=== PATIENT | female | born 1955 | race Caucasian/White ===

== ENCOUNTER 2020-04-30 15:47 | Inpatient (IN) | payer MEDICARE, OTHER ==
[2020-04-30] MEDS ORDERED: SODIUM CHLORIDE 0.9% 500 ML 500 ML IV STA (16:31)
[2020-04-30 16:45] LABS: Anisocytosis Slight; Basophils # (A) 0.1 k/uL (0-0.2); Basophils % (A) 1 %; Eosinophils # (A) 0.1 k/uL (0-0.7); Eosinophils % (A) 1 %; HCT 29.9 % (34.0-46.0); HGB 9.4 gm/dL (11.4-16.0); Hypochromasia Marked; Lymphocytes # (A) 2.1 k/uL (1.0-4.8); Lymphocytes % (A) 27 %; MCH 26.3 pg (25.0-35.0); MCHC 31.4 g/dL (31.0-37.0); MCV 83.8 fL (80.0-100.0); Mean Platelet Volume 7.3; Monocytes # (A) 0.7 k/uL (0-1.0); Monocytes % (A) 9 %; Neutrophils # (A) 4.6 k/uL (1.3-7.7); Neutrophils % (A) 59 %; Platelet Count 499 k/uL (150-450); Poikilocytosis Moderate; RBC 3.57 m/uL (3.80-5.40); RDW 17.6 % (11.5-15.5); WBC 7.7 k/uL (3.8-10.6)
[2020-04-30 16:57] LABS: Albumin 3.2 g/dL (3.5-5.0); Calcium 8.7 mg/dL (8.4-10.2); Magnesium 2.1 mg/dL (1.6-2.3); Potassium 3.8 mmol/L (3.5-5.1); Total Bilirubin 0.4 mg/dL (0.2-1.3)
[2020-04-30 16:59] LABS: INR 0.9 (<1.2); Partial Thromboplastin Time 23.4 sec (22.0-30.0); Prothrombin Time 9.7 sec (9.0-12.0)
[2020-04-30 17:03] LABS: D-Dimer 2.47 mg/L FEU (<0.60)
--- NOTE | 2020-04-30 17:13 | ED ---
General Adult HPI - General Chief complaint: Shortness of Breath Stated complaint: SOB Time Seen by Provider: 04/30/20 15:50 Source: patient, EMS, RN notes reviewed, old records reviewed Mode of arrival: EMS Limitations: no limitations - History of Present Illness Initial comments: This is a 64-year-old female who presents emergency Department complaining shortness of breath. Patient states her nurse saw her today and thought she had some crackles in her oxygenation was in the 80s so they sent her in. Patient states in February she was diagnosed with cold and pneumonia as well patient states she went home on April 02 has been feeling pretty good up until Wednesday. Patient states ever since Wednesday she started having more difficulty breathing and a cough. Patient denies any sputum production. Patient denies a fever. Patient denies any chest pain or palpitations. Patient denies abdominal pain patient denies nausea vomiting diarrhea. Patient denies any calf tenderness. Patient states his swelling in her legs is actually improved from before - Related Data Home Medications Medication Instructions Recorded Confirmed Aclidinium [place] [Tudorza 400 mcg IH DAILY 01/08/15 01/08/15 Pressair] Albuterol Inhaler (Mhu) [Ventolin 1 - 2 puff INHALATION Q6HR PRN 01/08/15 01/08/15 Inhaler] Folic Acid 0.8 mg PO DAILY 01/08/15 01/08/15 Hydrocodone/Acetaminophen [[place] 1 each PO Q6H PRN 01/08/15 01/08/15 10-325] Ibuprofen [Motrin] 800 mg PO Q8HR PRN 01/08/15 01/08/15 Leflunomide [Arava] 20 mg PO DAILY 01/08/15 01/08/15 Metoprolol Succinate (ER) [Toprol 25 mg PO DAILY 01/08/15 01/08/15 Xl] Tofacitinib Citrate [Xeljanz] 5 mg PO DAILY 01/08/15 01/08/15 Allergies Allergy/AdvReac Type Severity Reaction Status Date / Time Penicillins Allergy Unknown Verified 04/30/20 16:01 Childhood morphine AdvReac Nausea & Verified 04/30/20 16:01 Vomiting nickel AdvReac Swelling Verified 04/30/20 16:01 Review of Systems ROS Statement: Those systems with pertinent positive or pertinent negative responses have been documented in the HPI. ROS Other: All systems not noted in ROS Statement are negative. Past Medical History Past Medical History: COPD, Fibromyalgia, Hypertension, Osteoarthritis (OA) History of Any Multi-Drug Resistant Organisms: None Reported Past Surgical History: Hysterectomy, Joint Replacement Additional Past Surgical History / Comment(s): eye removed tumor removed from neck Past Psychological History: No Psychological Hx Reported Smoking Status: Former smoker Past Alcohol Use History: None Reported Past Drug Use History: Marijuana General Exam - General Exam Comments Initial Comments: GENERAL: Patient is well-developed and well-nourished. Patient is nontoxic and well- hydrated and is in mild distress. ENT: Neck is soft and supple. No significant lymphadenopathy is noted. Oropharynx is clear. Moist mucous membranes. Neck has full range of motion without eliciting any pain. EYES: The sclera were anicteric and conjunctiva were pink and moist. Extraocular movements were intact and pupils were equal round and reactive to light. Eyelids were unremarkable. PULMONARY: Patient is crackles bilateral bases CARDIOVASCULAR: Patient is tachycardic at about 100 beats a minute ABDOMEN: Soft and nontender with normal bowel sounds. No palpable organomegaly was noted. There is no palpable pulsatile mass. SKIN: Skin is clear with no lesions or rashes and otherwise unremarkable. NEUROLOGIC: Patient is alert and oriented x3. Cranial nerves II through XII are grossly intact. Motor and sensory are also intact. Normal speech, volume and content. Symmetrical smile. MUSCULOSKELETAL: Normal extremities with adequate strength and full range of motion. No lower extremity swelling or edema. No calf tenderness. LYMPHATICS: No significant lymphadenopathy is noted PSYCHIATRIC: Normal psychiatric evaluation. Limitations: no limitations Course Vital Signs 04/30/20 15:48 Temperature 98.5 F Pulse Rate 107 H Respiratory 20 Rate Blood Pressure 115/58 O2 Sat by Pulse 89 L Oximetry Medical Decision Making - Medical Decision Making EKG shows sinus tachycardia at 102 bpm MA interval 140 QRS 72 QT interval 3:30 QTC is 440. Patient's EKG shows no ST segment elevation or depression. Chest x-ray shows chronic interstitial disease. Patient had a PE study done CAT scan showed no pulmonary embolism. Patient will be admitted I spoke with Dr. Glover he is in agreement with this I wrote admitting orders I consult cardiology I started the patient on heparin and I will continue the heparin and aspirin Nitropaste on the floor. - Lab Data Result diagrams: 04/30/20 16:36 04/30/20 16:36 Lab Results 04/30/20 04/30/20 04/30/20 Range/Units 16:36 16:36 16:36 WBC 7.7 (3.8-10.6) k/uL RBC 3.57 L (3.80-5.40) m/uL Hgb 9.4 L (11.4-16.0) gm/dL Hct 29.9 L (34.0-46.0) % MCV 83.8 (80.0-100.0) fL MCH 26.3 (25.0-35.0) pg MCHC 31.4 (31.0-37.0) g/dL RDW 17.6 H (11.5-15.5) % Plt Count 499 H (150-450) k/uL MPV 7.3 Neutrophils % 59 % Lymphocytes % 27 % Monocytes % 9 % Eosinophils % 1 % Basophils % 1 % Neutrophils # 4.6 (1.3-7.7) k/uL Lymphocytes # 2.1 (1.0-4.8) k/uL Monocytes # 0.7 (0-1.0) k/uL Eosinophils # 0.1 (0-0.7) k/uL Basophils # 0.1 (0-0.2) k/uL Hypochromasia Marked Poikilocytosis Moderate Anisocytosis Slight PT 9.7 (9.0-12.0) sec INR 0.9 (<1.2) APTT 23.4 (22.0-30.0) sec D-Dimer 2.47 H (<0.60) mg/L FEU Sodium 139 (137-145) mmol/L Potassium 3.8 (3.5-5.1) mmol/L Chloride 99 (98-107) mmol/L Carbon Dioxide 34 H (22-30) mmol/L Anion Gap 6 mmol/L BUN 12 (7-17) mg/dL Creatinine 0.81 (0.52-1.04) mg/dL Est GFR (CKD-EPI)AfAm 88 (>60 ml/min/1.73 sqM) Est GFR (CKD-EPI)NonAf 76 (>60 ml/min/1.73 sqM) Glucose 107 H (74-99) mg/dL Plasma Lactic Acid Goran (0.7-2.0) mmol/L Calcium 8.7 (8.4-10.2) mg/dL Magnesium 2.1 (1.6-2.3) mg/dL Total Bilirubin 0.4 (0.2-1.3) mg/dL AST 25 (14-36) U/L ALT 11 (4-34) U/L Alkaline Phosphatase 80 (38-126) U/L Troponin I (0.000-0.034) ng/mL NT-Pro-B Natriuret Pep pg/mL Total Protein 7.0 (6.3-8.2) g/dL Albumin 3.2 L (3.5-5.0) g/dL 04/30/20 04/30/20 04/30/20 Range/Units 16:36 16:36 16:36 WBC (3.8-10.6) k/uL RBC (3.80-5.40) m/uL Hgb (11.4-16.0) gm/dL Hct (34.0-46.0) % MCV (80.0-100.0) fL MCH (25.0-35.0) pg MCHC (31.0-37.0) g/dL RDW (11.5-15.5) % Plt Count (150-450) k/uL MPV Neutrophils % % Lymphocytes % % Monocytes % % Eosinophils % % Basophils % % Neutrophils # (1.3-7.7) k/uL Lymphocytes # (1.0-4.8) k/uL Monocytes # (0-1.0) k/uL Eosinophils # (0-0.7) k/uL Basophils # (0-0.2) k/uL Hypochromasia Poikilocytosis Anisocytosis PT (9.0-12.0) sec INR (<1.2) APTT (22.0-30.0) sec D-Dimer (<0.60) mg/L FEU Sodium (137-145) mmol/L Potassium (3.5-5.1) mmol/L Chloride (98-107) mmol/L Carbon Dioxide (22-30) mmol/L Anion Gap mmol/L BUN (7-17) mg/dL Creatinine (0.52-1.04) mg/dL Est GFR (CKD-EPI)AfAm (>60 ml/min/1.73 sqM) Est GFR (CKD-EPI)NonAf (>60 ml/min/1.73 sqM) Glucose (74-99) mg/dL Plasma Lactic Acid Goran 1.8 (0.7-2.0) mmol/L Calcium (8.4-10.2) mg/dL Magnesium (1.6-2.3) mg/dL Total Bilirubin (0.2-1.3) mg/dL AST (14-36) U/L ALT (4-34) U/L Alkaline Phosphatase (38-126) U/L Troponin I 0.507 H* (0.000-0.034) ng/mL NT-Pro-B Natriuret Pep 398 pg/mL Total Protein (6.3-8.2) g/dL Albumin (3.5-5.0) g/dL Critical Care Time Critical Care Time: Yes Total Critical Care Time: 35 Disposition Clinical Impression: Non-STEMI (non-ST elevated myocardial infarction) Disposition: ADMITTED IP TO THIS HOSP Referrals: Beny Glover MD [Primary Care Provider] - 1-2 days Time of Disposition: 18:56
--- NOTE | 2020-04-30 17:15 | XR ---
EXAMINATION TYPE: XR chest 2V DATE OF EXAM: 04/30/2020 COMPARISON: 05/03/2013. HISTORY: Shortness of breath. History of Covid in February. TECHNIQUE: Frontal and lateral views of the chest are obtained. FINDINGS: There are bilateral diffuse marked hazy and streaky opacities. There is background of pulm onary edema. No pleural effusion, or pneumothorax seen. The cardiac silhouette size is enlarged. T he osseous structures are intact. IMPRESSION: Pulmonary edema with superimposed infiltrates not excluded.
[2020-04-30] MEDS ORDERED: HEPARIN SODIUM,PORCINE 5,000 UNIT/ML 1 ML VIAL IV ONE (17:17)
[2020-04-30] MEDS ORDERED: HEPARIN SOD,PORK IN 0.45% NACL 25,000 UNIT in 0.45% NACL 1 250ML.BAG IV SCH (17:30)
--- NOTE | 2020-04-30 18:35 | CT ---
EXAMINATION TYPE: CT chest angio for PE DATE OF EXAM: 04/30/2020 COMPARISON: CT 05/01/2013. Same-day radiograph. HISTORY: shortness of breath CT DLP: 511.3 mGycm Automated exposure control for dose reduction was used. CONTRAST: CT Chest for pulmonary embolism performed with with IV Contrast, patient injected with 100 mL of Isov ue 370. FINDINGS: LUNGS: There is background of chronic moderate interstitial disease. There is superimposed bilateral diffuse moderate opacities. There is no pleural effusion or pneumothorax seen. There is moderate br onchiectasis. MEDIASTINUM: There is satisfactory enhancement of the pulmonary artery and its branches, there is no CT evidence for pulmonary embolism. There is mild to moderate thoracic aorta and moderate coronary at herosclerotic disease. Ascending aortic ectasia measuring up to 4 cm. Mild cardiomegaly seen. There a re no greater than 1 cm hilar or mediastinal lymph nodes. No pericardial effusion is seen. OTHER: Moderate hiatal hernia. IMPRESSION: Chronic interstitial disease/fibrosis with probable superimposed acute component. Moderate hiatal hernia. Ascending aortic ectasia. No acute PE.
[2020-04-30] MEDS ORDERED: NITROGLYCERIN SL TABS 0.4 MG TAB SUBLINGUAL PRN (18:56)
[2020-04-30] MEDS ORDERED: ASPIRIN 81 MG PO STA (18:56)
[2020-04-30] MEDS: FUROSEMIDE 10 MG/ML 2 ML VIAL IV SCH (22:54)
[2020-04-30] MEDS: NITROGLYCERIN OINT 1 INCH/GM PACKET TOPICAL SCH (22:54)
[2020-04-30] MEDS ORDERED: ALBUTEROL HFA INHALER INHALATION PRN (23:05)
[2020-04-30] MEDS ORDERED: ACETAMINOPHEN TAB 500 MG TAB PO PRN (23:07)
[2020-04-30] MEDS: ALPRAZolam 0.25 MG TAB PO PRN (23:16)
[2020-05-01] MEDS: PANTOPRAZOLE 40 MG TABLET PO SCH (06:31)
[2020-05-01] MEDS: NITROGLYCERIN OINT 1 INCH/GM PACKET TOPICAL SCH ×3 (06:31→17:08)
[2020-05-01] MEDS: LEVOTHYROXINE 25 MCG TAB PO SCH (06:31)
[2020-05-01] MEDS ORDERED: ASPIRIN 325 MG TAB PO STA (08:31)
[2020-05-01] MEDS ORDERED: SODIUM CHLORIDE 0.9% 1,000 ML in EMPTY BAG 1 BAG IV ONE (08:31)
[2020-05-01] MEDS ORDERED: NITROGLYCERIN SL TABS 0.4 MG TAB SUBLINGUAL PRN (08:31)
[2020-05-01] MEDS ORDERED: ALPRAZolam 0.5 MG TAB PO PRN (08:31)
[2020-05-01] MEDS ORDERED: ALPRAZolam 0.25 MG TAB PO PRN (08:31)
[2020-05-01] MEDS ORDERED: ATORVASTATIN 80 MG TAB PO STA (08:31)
[2020-05-01] MEDS: ALBUTEROL NEBULIZED 2.5 MG/3 ML INHALATION PRN ×2 (08:35→18:11)
[2020-05-01] MEDS ORDERED: NON FORMULARY DRUG (Folic Acid [Folic Acid] 0.8 MG Capsule) PO SCH (09:00)
[2020-05-01] MEDS: FUROSEMIDE 10 MG/ML 2 ML VIAL IV SCH ×2 (09:06→17:07)
[2020-05-01] MEDS: CYANOCOBALAMIN 500 MCG TAB PO SCH (09:08)
[2020-05-01] MEDS: MAGNESIUM OXIDE 400 MG TAB PO SCH (09:08)
[2020-05-01] MEDS: CHOLECALCIFEROL 25 MCG (1000 IU) TABLET PO SCH (09:08)
[2020-05-01] MEDS: ASPIRIN 325 MG TAB PO SCH (09:09)
--- NOTE | 2020-05-01 09:28 | P.HPIM ---
History of Present Illness H&P Date: 05/01/20 Shelbie Minaya, is a 64-year-old female who presented to [facility] emergency room with a chief complaint of worsening shortness of breath, patient had a recent history of Covid 19 pneumonia, she was admitted to [facility] for about 4 weeks she was discharged on 04/02/2020. She was evaluated in the emergency room, her vital examination on presentation revealed a temperature of 98.5 pulse 107 respiration 20 blood pressure 115/58 pulse ox 89% on 4 L nasal cannula, her white blood count was 7.7 hemoglobin 9.4 platelet count 499, d-dimer was elevated at 2.47 troponin level was elevated at 0.5 , BNP was 398 , Coronavirus PCR was negative. EKG was done in the emergency room and revealed sinus tachycardia with premature supraventricular complexes otherwise normal EKG, chest x-ray was done in the emergency room and revealed pulmonary edema with superimposed infiltrates, CT angiogram of the chest revealed evidence of chronic interstitial disease, moderate hiatal hernia, no acute pulmonary embolism. Patient was started on IV heparin and was admitted to telemetry floor cardiology consultation and pulmonary consultation were requested. Past medical history is significant for history of hypertension, history of osteoarthritis, history of fibromyalgia, history of hyperlipidemia, history of COPD, and recent history of Covid 19 pneumonia. On review of systems patient is alert and oriented 3 in no apparent distress, she is complaining of shortness of breath and occasional cough there is no fever or chills no headache or dizziness no chest pain, no nausea or vomiting no abdominal pain no diarrhea no blood in the stools no burning with urination no frequency or urgency and no hematuria. Past Medical History Past Medical History: COPD, CVA/TIA, Fibromyalgia, Hypertension, Osteoarthritis (OA), Rheumatoid Arthritis (RA) History of Any Multi-Drug Resistant Organisms: None Reported Past Surgical History: Hysterectomy, Joint Replacement Additional Past Surgical History / Comment(s): right eye removed tumor removed from neck Smoking Status: Former smoker - Past Family History Mother Additional Family Medical History / Comment(s): from pancreatic cancer Medications and Allergies Home Medications Medication Instructions Recorded Confirmed Type Folic Acid 0.8 mg PO DAILY 01/08/15 04/30/20 History ALPRAZolam [Xanax] 0.25 mg PO HS PRN 04/30/20 04/30/20 History Albuterol Inhaler [Ventolin Hfa 2 puff INHALATION RT-QID PRN 04/30/20 04/30/20 History Inhaler] Aspirin EC [Ecotrin Low Dose] 81 mg PO DAILY 04/30/20 04/30/20 History Cholecalciferol [Vitamin D3 (25 25 mcg PO DAILY 04/30/20 04/30/20 History Mcg = 1000 Iu)] Cyanocobalamin (Vitamin B-12) 1,000 mcg PO DAILY 04/30/20 04/30/20 History [Vitamin B-12] Furosemide [Lasix] 40 mg PO BID 04/30/20 04/30/20 History Latanoprost [Xalatan 0.005%] 1 drop LEFT EYE HS 04/30/20 04/30/20 History Levothyroxine Sodium [Euthyrox] 25 mcg PO DAILY 04/30/20 04/30/20 History Magnesium Oxide 400 mg PO DAILY 04/30/20 04/30/20 History Naproxen Sodium [Aleve] 440 mg PO Q12HR PRN 04/30/20 04/30/20 History Omeprazole [PriLOSEC] 20 mg PO AC-BRKFST 04/30/20 04/30/20 History Allergies Allergy/AdvReac Type Severity Reaction Status Date / Time Penicillins Allergy Unknown Verified 04/30/20 20:04 Childhood morphine AdvReac Nausea & Verified 04/30/20 20:04 Vomiting nickel AdvReac Swelling Verified 04/30/20 20:04 Physical Exam Vitals: Vital Signs Temp Pulse Pulse Resp BP BP BP 05/01/20 08:45 90 05/01/20 08:35 88 05/01/20 08:30 105 H 106/58 05/01/20 07:54 98.4 F 106 H 20 105/59 05/01/20 04:59 05/01/20 04:00 98.1 F 100 20 101/56 05/01/20 02:00 103 H 20 05/01/20 01:28 05/01/20 00:00 103 H 20 114/70 04/30/20 23:00 97.2 F L 98 22 118/75 04/30/20 21:50 98 26 H 04/30/20 21:07 97 17 121/82 04/30/20 19:00 100 19 124/73 04/30/20 15:48 98.5 F 107 H 20 115/58 Pulse Ox 05/01/20 08:45 05/01/20 08:35 05/01/20 08:30 05/01/20 07:54 93 L 05/01/20 04:59 66 L 05/01/20 04:00 88 L 05/01/20 02:00 05/01/20 01:28 95 05/01/20 00:00 93 L 04/30/20 23:00 92 L 04/30/20 21:50 04/30/20 21:07 95 04/30/20 19:00 90 L 04/30/20 15:48 89 L Intake and Output 04/30/20 05/01/20 05/01/20 22:59 06:59 14:59 Intake Total 63.314 Output Total 200 1200 Balance -200 -1136.686 Intake: Intake, IV Titration 63.314 Amount Heparin Sod,Pork in 0.45% 63.314 NaCl 25,000 unit In 0.45 % NaCl 1 250ml.bag @ 9.5 UNITS/KG/HR 9.997 mls/hr IV .Q24H [facility] Rx#: [id number] Output: Urine 200 1200 Other: Voiding Method Indwelling Catheter Indwelling Catheter Indwelling Catheter # Voids 1 Weight 105.233 kg 104.9 kg In general patient is alert and oriented 3 in no apparent distress HEENT head normocephalic and atraumatic Neck is supple no JVD no goiter no lymphadenopathy Chest exam reveals a few scattered rhonchi no wheezing Cardiac exam reveals regular heart sounds S1 and S2 no gallops no murmurs Abdomen is soft nontender no organomegaly with normal bowel sounds Extremity examination reveals no edema no cyanosis or clubbing Neurological examination reveals no gross focal deficit Results CBC & Chem 7: 04/30/20 16:36 04/30/20 16:36 Labs: Abnormal Lab Results - Last 24 Hours (Table) 04/30/20 04/30/20 04/30/20 Range/Units 16:36 16:36 16:36 RBC 3.57 L (3.80-5.40) m/uL Hgb 9.4 L (11.4-16.0) gm/dL Hct 29.9 L (34.0-46.0) % RDW 17.6 H (11.5-15.5) % Plt Count 499 H (150-450) k/uL APTT (22.0-30.0) sec D-Dimer 2.47 H (<0.60) mg/L FEU Carbon Dioxide 34 H (22-30) mmol/L Glucose 107 H (74-99) mg/dL Troponin I (0.000-0.034) ng/mL Albumin 3.2 L (3.5-5.0) g/dL 04/30/20 04/30/20 04/30/20 Range/Units 16:36 19:53 22:56 RBC (3.80-5.40) m/uL Hgb (11.4-16.0) gm/dL Hct (34.0-46.0) % RDW (11.5-15.5) % Plt Count (150-450) k/uL APTT (22.0-30.0) sec D-Dimer (<0.60) mg/L FEU Carbon Dioxide (22-30) mmol/L Glucose (74-99) mg/dL Troponin I 0.507 H* 0.475 H* 0.466 H* (0.000-0.034) ng/mL Albumin (3.5-5.0) g/dL 04/30/20 Range/Units 22:56 RBC (3.80-5.40) m/uL Hgb (11.4-16.0) gm/dL Hct (34.0-46.0) % RDW (11.5-15.5) % Plt Count (150-450) k/uL APTT 33.0 H (22.0-30.0) sec D-Dimer (<0.60) mg/L FEU Carbon Dioxide (22-30) mmol/L Glucose (74-99) mg/dL Troponin I (0.000-0.034) ng/mL Albumin (3.5-5.0) g/dL Thrombosis Risk Factor Assmnt - Choose All That Apply Any of the Below Risk Factors Present?: Yes Each Factor Represents 1 point: Abnormal pulmonary function (COPD), Obesity (BMI >25) Other Risk Factors: Yes Each Risk Factor Represents 2 Points: Age 61-74 years Other congenital or acquired thrombophilia - If yes, enter type in comment: No Thrombosis Risk Factor Assessment Total Risk Factor Score: 4 Thrombosis Risk Factor Assessment Level: Moderate Risk Assessment and Plan Plan: 1. Worsening shortness of breath, with chest x-ray and computed tomography scan of the chest chronic interstitial disease with probable superimposed infiltrates 2. Elevated d-dimer no evidence of pulmonary embolism on computed tomography scan, will check bilateral lower extremity Doppler to rule out DVT 3. Elevated troponin level possible non-ST elevation myocardial infarction patient is maintained on IV heparin cardiology consultation requested 4. Recent Covid 19 pneumonia 5. Underlying history of hypertension 6. Underlying history of COPD 7. Underlying history of hyperlipidemia 8. Underlying history of osteoarthritis and fibromyalgia At this time patient is admitted to telemetry floor. She was started on IV heparin She was started on albuterol updraft, she is maintained on oxygen supplements Cardiology consultation and pulmonary consultation request Will check lower extremity Doppler rule out DVT Recheck labs in a.m. Will follow crackles
[2020-05-01] MEDS ORDERED: LIDOCAINE 1% INJ 10MG/ML (20 ML MDV) ONE (09:46)
[2020-05-01] MEDS ORDERED: fentaNYL (PF) 50 MCG/ML 2 ML AMP ONE (10:22)
[2020-05-01] MEDS ORDERED: fentaNYL (PF) 50 MCG/ML 2 ML AMP IV ONE (10:31)
[2020-05-01] MEDS ORDERED: LIDOCAINE 1% INJ 10MG/ML (20 ML MDV) SQ ONE ×2 (10:32→10:33)
[2020-05-01] MEDS ORDERED: IV FLUID CONTINUATION 1,000 ML IV ONE (10:33)
[2020-05-01] MEDS ORDERED: MIDAZOLAM 2 MG/2 ML VIAL IV ONE (10:41)
--- NOTE | 2020-05-01 10:41 | ECHOF ---
Referral Reason:Elevated troponin MEASUREMENTS -------- HEIGHT: 165.1 cm WEIGHT: 104.8 kg BP: 101/56 RVIDd: 2.7 cm (< 3.3) IVSd: 1.2 cm (0.6 - 1.1) LVIDd: 3.7 cm (3.9 - 5.3) LVPWd: 1.2 cm (0.6 - 1.1) IVSs: 1.7 cm LVIDs: 1.9 cm LVPWs: 2.1 cm Ao Diam: 3.3 cm (2.0 - 3.7) AV Cusp: 1.5 cm (1.5 - 2.6) LA Diam: 3.2 cm (2.7 - 3.8) MV EXCURSION: 14.924 mm (> 18.000) MV EF SLOPE: 41 mm/s (70 - 150) EPSS: 0.7 cm MV E Avtar: 0.99 m/s MV DecT: 260 ms MV A Avtar: 1.18 m/s MV E/A Ratio: 0.84 RAP: 5.00 mmHg RVSP: 35.51 mmHg FINDINGS -------- Sinus rhythm. This was a technically difficult study with suboptimal views. The left ventricular size is normal. There is mild concentric left ventricular hypertrophy. Overa ll left ventricular systolic function is normal with, an EF between 55 - 60 %. The right ventricle is normal in size. The left atrial size is normal. The right atrial size is normal. Lumason used Aortic valve is trileaflet and is mildly thickened. The mitral valve leaflets are mildly thickened. Mild mitral regurgitation is present. The tricuspid valve appears structurally normal. Mild tricuspid regurgitation present. There is m ild pulmonary hypertension. The right ventricular systolic pressure, as measured by Doppler, is 35. 51mmHg. There is no pulmonic regurgitation present. The aortic root size is normal. IVC Not well visulized. There is no pericardial effusion. CONCLUSIONS -------- 1. There is mild concentric left ventricular hypertrophy. 2. Overall left ventricular systolic function is normal with, an EF between 55 - 60 %. 3. The left atrial size is normal. 4. Aortic valve is trileaflet and is mildly thickened. 5. The mitral valve leaflets are mildly thickened. 6. Mild mitral regurgitation is present. 7. Mild tricuspid regurgitation present. 8. There is mild pulmonary hypertension. 9. There is no pericardial effusion. [employer] TEACHER: Samantha Weaver RDCS
[2020-05-01] MEDS ORDERED: IOPAMIDOL-370 125ML BTL INJ ONE (10:46)
--- NOTE | 2020-05-01 10:50 | CONS ---
CONSULTATION CHIEF COMPLAINT: Shortness of breath and elevated troponin. Shelbie is a 64-year-old lady with history of COPD, hypothyroidism who was admitted to the hospital with progressively worsening shortness of breath. She states that over the last several days she has been becoming short of breath with activity and also had some chest tightness. Admitting EKG reveals sinus tachycardia without significant ST-T wave changes. Her first set of troponin was elevated at 0.5, the subsequent 2 sets were at 0.4 and 0.4. Coronavirus was negative. The patient had an elevated D-dimer, went on to have a CT scan of the chest that was negative for pulmonary embolism. She had aortic ectasia and also had moderate hiatal hernia. The patient suffered from coronavirus infection with pneumonia in October and in February and was in the hospital for several weeks. Since that time, she has been on home O2. She was a smoker, but quit smoking recently. PAST MEDICAL HISTORY: Negative for hypertension, diabetes, dyslipidemia. Significant for COPD and recent infection of the coronavirus. MEDICATIONS: Medications at home include magnesium, vitamin D, aspirin, Prilosec, Xalatan, vitamin B12, Synthroid, Lasix, Ventolin, Xanax and folic acid. ALLERGIES: The patient is allergic to PENICILLIN, MORPHINE and NICKEL. FAMILY HISTORY: Negative for premature coronary artery disease. SOCIAL HISTORY: Significant for smoking that she quit recently. REVIEW OF SYSTEMS: HEENT is unremarkable . CARDIAC: As described above. RESPIRATORY: As described above. GI: Negative. GENITOURINARY: Negative. ALLERGY/IMMUNOLOGY: Negative. SKIN: Negative. MUSCULOSKELETAL: Significant for arthritis. PSYCHOSOCIAL: Negative. ENDOCRINE: Negative. DERM: Negative. CONSTITUTIONAL: Negative. ONCOLOGICAL: Negative. DENTAL INSURANCE BILLER: Negative. Rest of the system review is not relevant. PHYSICAL EXAMINATION: On exam, patient is comfortable at rest. Afebrile. Heart rate is 100 beats per minute. Blood pressure is 105/59. Respiratory rate is 18. There is no jugular venous distention. Carotid upstroke is normal. There is no bruit. Chest exam reveals diminished air entry at the bases. I do not hear any crackles or rhonchi. Heart exam reveals first and second heart sounds. No gallop. No murmur. No rub. Abdomen is soft, nontender. Examination of extremities did not reveal any edema. Peripheral pulses are felt. EKG shows sinus tachycardia with nonspecific ST-T wave changes. Troponins are elevated as described above. Creatinine is normal at 0.8. Potassium is 3.8. Hemoglobin is low at 9.4, platelet count is 499. ASSESSMENT: 1. Acute non ST-segment elevation myocardial infarction. 2. Shortness of breath, probably multifactorial in origin including [id number] elevation myocardial infarction, recent COVID infection and chronic obstructive pulmonary disease. PLAN: I advised the patient to undergo cardiac catheterization for further evaluation of her symptoms and decide on further course of action based on the cardiac catheterization findings. MMODL / IJN: [id number] /
--- NOTE | 2020-05-01 13:24 | P.CNPUL ---
History of Present Illness Consult date: 05/01/20 Requesting physician: Beny Glover Reason for consult: dyspnea, abnormal CXR/CT Chief complaint: Shortness of breath History of present illness: This a very pleasant 64-year-old female patient who follows with Dr. Waddell is her primary care provider. 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 She had recently been admitted to [facility] for CoVID 19 pneumonia. She was discharged on 04/02/2020 and had been doing quite well. She also has a history of rheumatoid arthritis and follows with Dr. Koenig in [place]. She had been recently started on Rinvoq. She had been on multiple previous rheumatoid medications in the past. She presented here to the emergency room yesterday with a 2-3 day history of increasing shortness of breath, cough and congestion. A visiting nurse heard crackles and her oxygenation was in the 80s so she was sent in for the same. CT angiogram revealed chronic interstitial disease/fibrosis with probable superimposed moderate opacities. Moderate bronchiectasis. No evidence of pulmonary emboli. Moderate hiatal hernia. Echocardiogram revealed preserved left ventricular systolic function with ejection fraction 55-60%. No significant valvular heart disease. White count 7.7. Hemoglobin 9.4. D-dimer 2.47. Sodium 139. Potassium 3.8. Creatinine 0.81. Actiq acid 1.8. Villela virus not detected. Troponin 0.5, 0.4, 0.4. She did undergo cardiac catheterization this morning that did not reveal any significant blockage according to the patient. Report is pending. She is seen today in consultation on the selective care unit. She is currently resting flat in bed. Awake and alert in no acute distress. Still with some dyspnea with minimal exertion. She is maintaining O2 saturation in the mid 90s on 5 L/m per nasal cannula. She's afebrile. She had been initiated on a heparin drip originally. IV diuretics at 20 mg Lasix every 8 hours. Review of Systems REVIEW OF SYSTEMS: CONSTITUTIONAL: Denies any recent significant weight loss or weight gain. EYES: Denies change in vision. EARS, NOSE, MOUTH, THROAT: Denies headaches, denies sore throat. CARDIOVASCULAR: Denies chest pain, palpitations or syncopal episodes. RESPIRATORY: Positive for shortness of breath, cough, congestion hemoptysis. GASTROINTESTINAL: Denies change in appetite, denies abdominal pain GENITOURINARY: Denies hematuria, denies infections. MUSKULOSKELETAL: Denies pain, denies swelling. INTEGUMENTARY: Denies rash, denies eczema. NEUROLOGICAL: Denies recent memory loss, no recent seizure activity. PSYCHIATRIC: Denies anxiety, denies depression. HEMATOLOGIC/LYMPHATIC: Denies anemia, denies enlarged lymph nodes. Past Medical History Past Medical History: COPD, CVA/TIA, Fibromyalgia, Hypertension, Osteoarthritis (OA), Rheumatoid Arthritis (RA) History of Any Multi-Drug Resistant Organisms: None Reported Past Surgical History: Hysterectomy, Joint Replacement Additional Past Surgical History / Comment(s): right eye removed tumor removed from neck Smoking Status: Former smoker - Past Family History Mother Additional Family Medical History / Comment(s): from pancreatic cancer Medications and Allergies Home Medications Medication Instructions Recorded Confirmed Type Folic Acid 0.8 mg PO DAILY 01/08/15 04/30/20 History ALPRAZolam [Xanax] 0.25 mg PO HS PRN 04/30/20 04/30/20 History Albuterol Inhaler [Ventolin Hfa 2 puff INHALATION RT-QID PRN 04/30/20 04/30/20 History Inhaler] Aspirin EC [Ecotrin Low Dose] 81 mg PO DAILY 04/30/20 04/30/20 History Cholecalciferol [Vitamin D3 (25 25 mcg PO DAILY 04/30/20 04/30/20 History Mcg = 1000 Iu)] Cyanocobalamin (Vitamin B-12) 1,000 mcg PO DAILY 04/30/20 04/30/20 History [Vitamin B-12] Furosemide [Lasix] 40 mg PO BID 04/30/20 04/30/20 History Latanoprost [Xalatan 0.005%] 1 drop LEFT EYE HS 04/30/20 04/30/20 History Levothyroxine Sodium [Euthyrox] 25 mcg PO DAILY 04/30/20 04/30/20 History Magnesium Oxide 400 mg PO DAILY 04/30/20 04/30/20 History Naproxen Sodium [Aleve] 440 mg PO Q12HR PRN 04/30/20 04/30/20 History Omeprazole [PriLOSEC] 20 mg PO AC-[id number] 04/30/20 04/30/20 History Allergies Allergy/AdvReac Type Severity Reaction Status Date / Time Penicillins Allergy Unknown Verified 04/30/20 20:04 Childhood morphine AdvReac Nausea & Verified 04/30/20 20:04 Vomiting nickel AdvReac Swelling Verified 04/30/20 20:04 Physical Exam Vitals: Vital Signs Temp Pulse Pulse Pulse Resp BP BP 05/01/20 11:53 103 H 20 118/68 05/01/20 11:38 98.5 F 98 19 111/65 05/01/20 11:23 97 18 114/83 05/01/20 11:07 18 109/62 05/01/20 08:45 90 05/01/20 08:35 88 05/01/20 08:30 105 H 05/01/20 07:54 98.4 F 106 H 20 105/59 05/01/20 04:59 05/01/20 04:00 98.1 F 100 20 101/56 05/01/20 02:00 103 H 20 05/01/20 01:28 05/01/20 00:00 103 H 20 114/70 04/30/20 23:00 97.2 F L 98 22 118/75 04/30/20 21:50 98 26 H 04/30/20 21:07 97 17 121/82 04/30/20 19:00 100 19 124/73 04/30/20 15:48 98.5 F 107 H 20 115/58 BP Pulse Ox 05/01/20 11:53 92 L 05/01/20 11:38 93 L 05/01/20 11:23 94 L 05/01/20 11:07 05/01/20 08:45 05/01/20 08:35 05/01/20 08:30 106/58 05/01/20 07:54 93 L 05/01/20 04:59 66 L 05/01/20 04:00 88 L 05/01/20 02:00 05/01/20 01:28 95 05/01/20 00:00 93 L 04/30/20 23:00 92 L 04/30/20 21:50 04/30/20 21:07 95 04/30/20 19:00 90 L 04/30/20 15:48 89 L Intake and Output 04/30/20 05/01/20 05/01/20 22:59 06:59 14:59 Intake Total 63.314 75 Output Total 200 1200 Balance -200 -1136.686 75 Intake: IV 75 Intake, IV Titration 63.314 Amount Heparin Sod,Pork in 0.45% 63.314 NaCl 25,000 unit In 0.45 % NaCl 1 250ml.bag @ 9.5 UNITS/KG/HR 9.997 mls/hr IV .Q24H PENDING SALE TO [facility] Rx#: [id number] Output: Urine 200 1200 Other: Voiding Method Indwelling Catheter Indwelling Catheter Indwelling Catheter # Voids 1 Weight 105.233 kg 104.9 kg GENERAL EXAM: Alert, pleasant 64-year-old female patient, on 5 L nasal cannula, comfortable in no apparent distress. HEAD: Normocephalic. EYES: Normal reaction of pupils, equal size. NOSE: Clear with pink turbinates. THROAT: No erythema or exudates. NECK: No masses, no JVD. CHEST: No chest wall deformity. LUNGS: Equal air entry with coarse basilar crackles, no wheeze, rhonchi or dul lness. CVS: S1 and S2 normal with no audible murmur, regular rhythm. ABDOMEN: No hepatosplenomegaly, normal bowel sounds, no guarding or rigidity. SPINE: No scoliosis or deformity SKIN: No rashes CENTRAL NERVOUS SYSTEM: No focal deficits, tone is normal in all 4 extremities. EXTREMITIES: There is no peripheral edema. No clubbing, no cyanosis. Peripheral pulses are intact. Results - Laboratory Findings CBC and BMP: 04/30/20 16:36 04/30/20 16:36 PT/INR, D-dimer PT 9.7 sec (9.0-12.0) 04/30/20 16:36 INR 0.9 (<1.2) 04/30/20 16:36 D-Dimer 2.47 mg/L FEU (<0.60) H 04/30/20 16:36 Abnormal lab findings: Abnormal Labs 04/30/20 04/30/20 04/30/20 16:36 16:36 16:36 RBC 3.57 L Hgb 9.4 L Hct 29.9 L RDW 17.6 H Plt Count 499 H APTT D-Dimer 2.47 H Carbon Dioxide 34 H Glucose 107 H Troponin I Albumin 3.2 L 04/30/20 04/30/20 04/30/20 16:36 19:53 22:56 RBC Hgb Hct RDW Plt Count APTT D-Dimer Carbon Dioxide Glucose Troponin I 0.507 H* 0.475 H* 0.466 H* Albumin 04/30/20 22:56 RBC Hgb Hct RDW Plt Count APTT 33.0 H D-Dimer Carbon Dioxide Glucose Troponin I Albumin - Diagnostic Findings Chest x-ray: image reviewed CT scan - chest: image reviewed Assessment and Plan Assessment: 1 Acute on chronic hypoxic respiratory failure secondary to acute patchy infiltrates on top of chronic interstitial lung disease. Suspect ongoing changes from recent CoVID 19 infection. 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 2 Acute non-ST segment elevation myocardial infarction reported to have no significant coronary artery disease, report pending. 3 Recent admission for CoVID 19 pneumonia at [facility]. 4 Rheumatoid arthritis, recently started on Rinvoq 5 Chronic obstructive pulmonary disease 6 History of chronic tobacco dependence 7 fibromyalgia 8 History of CVA/TIA 9 Right enucleation secondary to tumor Plan: The patient was seen and evaluated by Dr. Boyer Chest x-ray, CAT scans and labs reviewed Continue diuretics, continue bronchodilators Titrate down the FiO2 as tolerated Evaluate for acute versus chronic changes with a follow-up computed tomography scan in 2-3 months We will continue to follow and make further recommendations based on her clinical status I, the cosigning physician, performed a history & physical examination of the patient. Lungs sounds with coarse crackles in the bilateral bases. Maintaining good O2 saturations in the 90s on 5 L/m per nasal cannula. I discussed the assessment and plan of care with my nurse practitioner, Sarai Turcios. I attest to the above note as dictated by her. Time with Patient: Greater than 30
--- NOTE | 2020-05-01 13:57 | CC ---
CARDIAC CATHETERIZATION REPORT INDICATION: Non ST-segment elevation ME. PROCEDURE NOTE: After obtaining informed consent, left heart catheterization and coronary angiogram were performed via the right femoral artery using standard Trish catheters. The patient tolerated the procedure well without any obvious immediate complications. Patient received moderate conscious sedation. Total sedation time was 12 minutes. FINDINGS: 1. HEMODYNAMICS: Left ventricular end-diastolic pressure is 12 mm. There is no significant gradient across the aortic valve. 2. LEFT VENTRICULOGRAM: Left ventriculogram was not performed. 3. ANGIOGRAPHIC DATA: Left Main Coronary Artery: It is a short vessel and is free of stenosis. Divides into circumflex coronary artery and LAD. LAD and its branches, circumflex coronary artery and its branches are free of significant stenosis. Right coronary artery is a large dominant vessel and is free of significant disease. CONCLUSION: 1. No significant coronary artery disease. 2. Normal left ventricular end-diastolic pressure. PLAN: 1. Patient's shortness of breath is probably related to the recent COVID infection. 2. Elevated troponin is unrelated to coronary artery disease. MMODL / IJN: [id number] /
[2020-05-01] MEDS: LATANOPROST 0.005% OPHTH DROPS 2.5 ML BTL LEFT EYE SCH (20:39)
[2020-05-01] MEDS: ALPRAZolam 0.25 MG TAB PO PRN (20:39)
[2020-05-02] MEDS: FUROSEMIDE 10 MG/ML 2 ML VIAL IV SCH ×4 (00:13→22:44)
[2020-05-02] MEDS: NITROGLYCERIN OINT 1 INCH/GM PACKET TOPICAL SCH ×2 (00:13→06:23)
[2020-05-02] MEDS: LEVOTHYROXINE 25 MCG TAB PO SCH (06:23)
[2020-05-02] MEDS: PANTOPRAZOLE 40 MG TABLET PO SCH (06:23)
[2020-05-02] MEDS ORDERED: HEPARIN SODIUM,PORCINE 10,000 UNIT in SODIUM CHLORIDE 0.9% 1,000 ML IRRIGATION PRN (07:00)
[2020-05-02] MEDS ORDERED: HEPARIN SODIUM,PORCINE 2,500 UNIT in SODIUM CHLORIDE 0.9% 250 ML IRRIGATION PRN (07:00)
[2020-05-02] MEDS: ASPIRIN 325 MG TAB PO SCH (10:05)
[2020-05-02] MEDS: CYANOCOBALAMIN 500 MCG TAB PO SCH (10:05)
[2020-05-02] MEDS: MAGNESIUM OXIDE 400 MG TAB PO SCH (10:05)
[2020-05-02] MEDS: CHOLECALCIFEROL 25 MCG (1000 IU) TABLET PO SCH (10:05)
[2020-05-02] MEDS: ALBUTEROL NEBULIZED 2.5 MG/3 ML INHALATION PRN (11:39)
[2020-05-02 12:14] LABS: Anisocytosis Slight; Basophils # (A) 0.1 k/uL (0-0.2); Basophils % (A) 1 %; Eosinophils # (A) 0.1 k/uL (0-0.7); Eosinophils % (A) 1 %; HCT 27.9 % (34.0-46.0); HGB 8.5 gm/dL (11.4-16.0); Hypochromasia Marked; Lymphocytes # (A) 1.6 k/uL (1.0-4.8); Lymphocytes % (A) 22 %; MCH 25.4 pg (25.0-35.0); MCHC 30.4 g/dL (31.0-37.0); MCV 83.7 fL (80.0-100.0); Mean Platelet Volume 7.3; Monocytes # (A) 0.5 k/uL (0-1.0); Monocytes % (A) 6 %; Neutrophils # (A) 4.9 k/uL (1.3-7.7); Neutrophils % (A) 67 %; Platelet Count 415 k/uL (150-450); Poikilocytosis Moderate; RBC 3.33 m/uL (3.80-5.40); RDW 17.9 % (11.5-15.5); WBC 7.2 k/uL (3.8-10.6)
[2020-05-02 12:19] LABS: ALT 8 U/L (4-34); AST 19 U/L (14-36); African American GFR (CKD) >90 (>60 ml/min/1.73 sqM); Albumin 2.9 g/dL (3.5-5.0); Alkaline Phosphatase 66 U/L (38-126); Anion Gap 3 mmol/L; Blood Urea Nitrogen 12 mg/dL (7-17); Calcium 8.4 mg/dL (8.4-10.2); Carbon Dioxide 37 mmol/L (22-30); Chloride 97 mmol/L (98-107); Cholesterol 172 mg/dL (<200); Glucose 104 mg/dL (74-99); HDL Cholesterol 45 mg/dL (40-60); LDL Cholesterol,Calculated 112 mg/dL (0-99); Non-African American GFR(CKD) >90 (>60 ml/min/1.73 sqM); Potassium 4.4 mmol/L (3.5-5.1); Sodium 137 mmol/L (137-145); Total Bilirubin 0.4 mg/dL (0.2-1.3); Total Protein 6.4 g/dL (6.3-8.2); Triglycerides 77 mg/dL (<150)
--- NOTE | 2020-05-02 13:02 | P.PN ---
Subjective Progress Note Date: 05/02/20 HISTORY OF PRESENT ILLNESS: Patient is status post cardiac catheterization with Dr. Womack revealing normal coronary arteries. Patient examined this morning at the bedside. She denies chest pain or pressure. She reports mild shortness of breath. She is currently on 6 L nasal cannula. She reports using home O2 at 4 L. Echocardiogram completed revealed ejection fraction 55-60%, mild mitral regurgitation, mild tricuspid regurgitation, and mild pulmonary hypertension. PHYSICAL EXAM: VITAL SIGNS: Reviewed. GENERAL: Well-developed in no acute distress. NECK: Supple. No JVD or thyromegaly LUNGS: Respirations even and unlabored. Lungs essentially clear to auscultation bilaterally. HEART: Regular rate and rhythm. S1 and S2 heard. EXTREMITIES: Normal range of motion. No clubbing or cyanosis. Peripheral pulses intact. No lower extremity edema. Right groin soft with no hematoma present. Pulse noted. ASSESSMENT: Acute non-ST elevated myocardial infection, status post cardiac catheterization revealing normal coronary arteries On chronic hypoxic with saturation failure, on home O2 Recent Covid infection, February 2020 PLAN: Wean oxygen as tolerated Patient is currently stable for discharge from a cardiac standpoint. Patient to follow-up outpatient. Nurse practitioner note has been reviewed by physician. Signing provider agrees with the documented findings, assessment, and plan of care. Objective - Vital Signs Vital signs: Vital Signs Temp 98.0 F 05/02/20 08:00 Pulse 99 05/02/20 11:50 Resp 18 05/02/20 08:00 BP 102/55 05/02/20 08:00 Pulse Ox 94 L 05/02/20 08:00 Intake & Output 05/01/20 05/02/20 05/02/20 18:59 06:59 18:59 Intake Total 315 240 Output Total 1800 1600 550 Balance -1485 -1600 -310 Weight 102.5 kg Intake: IV 75 Oral 240 240 Output: Urine 1800 1600 550 Other: Voiding Method Indwelling Catheter Indwelling Catheter - Labs CBC & Chem 7: 05/02/20 11:39 05/02/20 11:39 Labs: Abnormal Lab Results - Last 24 Hours (Table) 05/02/20 05/02/20 Range/Units 11:39 11:39 RBC 3.33 L (3.80-5.40) m/uL Hgb 8.5 L (11.4-16.0) gm/dL Hct 27.9 L (34.0-46.0) % MCHC 30.4 L (31.0-37.0) g/dL RDW 17.9 H (11.5-15.5) % Chloride 97 L (98-107) mmol/L Carbon Dioxide 37 H (22-30) mmol/L Glucose 104 H (74-99) mg/dL Albumin 2.9 L (3.5-5.0) g/dL LDL Cholesterol, Calc 112 H (0-99) mg/dL Microbiology - Last 24 Hours (Table) 04/30/20 16:39 Blood Culture - Preliminary Blood No Growth after 24 hours
--- NOTE | 2020-05-02 15:50 | P.PN ---
Subjective Progress Note Date: 05/02/20 Principal diagnosis: Dyspnea, abnormal chest x-ray This a very pleasant 64-year-old female patient who follows with Dr. Waddell is her primary care provider. 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 She had recently been admitted to [facility] for CoVID 19 pneumonia. She was discharged on 04/02/2020 and had been doing quite well. She also has a history of rheumatoid arthritis and follows with Dr. Koenig in [place]. She had been recently started on Rinvoq. She had been on multiple previous rheumatoid medications in the past. She presented here to the emergency room yesterday with a 2-3 day history of increasing shortness of breath, cough and congestion. A visiting nurse heard crackles and her oxygenation was in the 80s so she was sent in for the same. CT angiogram revealed chronic interstitial disease/fibrosis with probable superimposed moderate opacities. Moderate bronchiectasis. No evidence of pulmonary emboli. Moderate hiatal hernia. Echocardiogram revealed preserved left ventricular systolic function with ejection fraction 55-60%. No significant valvular heart disease. White count 7.7. Hemoglobin 9.4. D-dimer 2.47. Sodium 139. Potassi um 3.8. Creatinine 0.81. Actiq acid 1.8. Villela virus not detected. Troponin 0.5, 0.4, 0.4. She did undergo cardiac catheterization this morning that did not reveal any significant blockage according to the patient. Report is pending. She is seen today in consultation on the selective care unit. She is currently resting flat in bed. Awake and alert in no acute distress. Still with some dyspnea with minimal exertion. She is maintaining O2 saturation in the mid 90s on 5 L/m per nasal cannula. She's afebrile. She had been initiated on a heparin drip originally. IV diuretics at 20 mg Lasix every 8 hours. On 05/02/2020 patient seen in follow-up on selective care unit, she is currently on 6 L of oxygen pulse ox 94-95%, no convincing chest pain. She continues on diuretics, she had a heart cath done yesterday which showed no significant coronary artery disease. No worsening dyspnea, no new chest x-ray today. His labs have been reviewed, blood blood cell count of 7.2, hemoglobin of 8.5, sodium is 137, potassium is 4.7, CO2 is 27, B1 is 12 creatinine 0.65, her Covid 19 recheck was negative, continues on Lasix 20 mg every 8 hours, patient's echocardiogram showed ejection fraction of 55-60%, mild MR and mild TR, and mild pulmonary hypertension Objective - Vital Signs Vital signs: Vital Signs Temp 98.0 F 05/02/20 08:00 Pulse 110 H 05/02/20 12:00 Resp 18 05/02/20 12:00 BP 117/61 05/02/20 12:00 Pulse Ox 91 L 05/02/20 15:31 Intake & Output 05/01/20 05/02/20 05/02/20 18:59 06:59 18:59 Intake Total 315 1020 Output Total 1800 1600 1175 Balance -1485 -1600 -155 Weight 102.5 kg Intake: IV 75 Oral 240 1020 Output: Urine 1800 1600 1175 Other: Voiding Method Indwelling Catheter Indwelling Catheter - Exam GENERAL EXAM: Alert, very pleasant, 64-year-old white female, 6 L of oxygen pulse ox of 93-94% comfortable in no apparent distress. HEAD: Normocephalic/atraumatic. EYES: Normal reaction of pupils, equal size. Conjunctiva pink, sclera white. NOSE: Clear with pink turbinates. THROAT: No erythema or exudates. NECK: No masses, no JVD, no thyroid enlargement, no adenopathy. CHEST: No chest wall deformity. Symmetrical expansion. LUNGS: Equal air entry with mild bibasilar crackles CVS: Regular rate and rhythm, normal S1 and S2, no gallops, no murmurs, no rubs ABDOMEN: Soft, nontender. No hepatosplenomegaly, normal bowel sounds, no guarding or rigidity. EXTREMITIES: No clubbing, no edema, no cyanosis, 2+ pulses and upper and lower extremities. MUSCULOSKELETAL: Muscle strength and tone normal. SPINE: No scoliosis or deformity SKIN: No rashes CENTRAL NERVOUS SYSTEM: Alert and oriented -3. No focal deficits, tone is normal in all 4 extremities. PSYCHIATRIC: Alert and oriented -3. Appropriate affect. Intact judgment and insight. - Labs CBC & Chem 7: 05/02/20 11:39 05/02/20 11:39 Labs: Abnormal Lab Results - Last 24 Hours (Table) 05/02/20 05/02/20 Range/Units 11:39 11:39 RBC 3.33 L (3.80-5.40) m/uL Hgb 8.5 L (11.4-16.0) gm/dL Hct 27.9 L (34.0-46.0) % MCHC 30.4 L (31.0-37.0) g/dL RDW 17.9 H (11.5-15.5) % Chloride 97 L (98-107) mmol/L Carbon Dioxide 37 H (22-30) mmol/L Glucose 104 H (74-99) mg/dL Albumin 2.9 L (3.5-5.0) g/dL LDL Cholesterol, Calc 112 H (0-99) mg/dL Microbiology - Last 24 Hours (Table) 04/30/20 16:39 Blood Culture - Preliminary Blood No Growth after 24 hours Assessment and Plan Plan: Assessment: 1 Acute on chronic hypoxic respiratory failure secondary to acute patchy infiltrates on top of chronic interstitial lung disease. 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 Possibility of ongoing Covid 19 infection was ruled out GI coronavirus PCR test 2 Acute non-ST segment elevation myocardial infarction reported to have no significant coronary artery disease, report pending. 3 Recent admission for CoVID 19 pneumonia at [facility]. Patient had been on oxygen since then 4 Rheumatoid arthritis, recently started on Rinvoq 5 Chronic obstructive pulmonary disease 6 History of chronic tobacco dependence 7 fibromyalgia 8 History of CVA/TIA 9 Right enucleation secondary to tumor Plan: Continue diuretics for another 24 hours, echocardiogram has been noted, heart catheterization report has been noted, signs have been stable, weaning FiO2, continue IV Decadron, continue vitamin C, D and zinc. Continue to follow I performed a history & physical examination of the patient and discussed their management with my nurse practitioner, Niki Moss. I reviewed the nurse practitioner's note and agree with the documented findings and plan of care. Lung sounds are positive for diminished breath sounds. The findings and the impression was discussed with the patient. I attest to the documentation by the nurse practitioner. Time with Patient: Less than 30
[2020-05-02] MEDS: DEXAMETHASONE SOD PHOSPHATE 10 MG/ML 1 ML VIAL IV SCH (16:57)
--- NOTE | 2020-05-02 18:35 | P.PN ---
Subjective Progress Note Date: 05/02/20 Shelbie Minaya, is a 64-year-old female who presented to [facility] emergency room with a chief complaint of worsening shortness of breath, patient had a recent history of Covid 19 pneumonia, she was admitted to [facility] for about 4 weeks she was discharged on 04/02/2020. She was evaluated in the emergency room, her vital examination on presentation revealed a temperature of 98.5 pulse 107 respiration 20 blood pressure 115/58 pulse ox 89% on 4 L nasal cannula, her white blood count was 7.7 hemoglobin 9.4 platelet count 499, d-dimer was elevated at 2.47 troponin level was elevated at 0.5 , BNP was 398 , Coronavirus PCR was negative. EKG was done in the emergency room and revealed sinus tachycardia with premature supraventricular complexes otherwise normal EKG, chest x-ray was done in the emergency room and revealed pulmonary edema with superimposed infiltrates, CT angiogram of the chest revealed evidence of chronic interstitial disease, moderate hiatal hernia, no acute pulmonary embolism. Patient was started on IV heparin and was admitted to telemetry floor cardiology consultation and pulmonary consultation were requested. Past medical history is significant for history of hypertension, history of osteoarthritis, history of fibromyalgia, history of hyperlipidemia, history of COPD, and recent history of Covid 19 pneumonia. On review of systems patient is alert and oriented 3 in no apparent distress, she is complaining of shortness of breath and occasional cough there is no fever or chills no headache or dizziness no chest pain, no nausea or vomiting no abdominal pain no diarrhea no blood in the stools no burning with urination no frequency or urgency and no hematuria. On 05/02/2020 patient was seen and examined on the medical floor she is alert and oriented 3 in no apparent distress she is still requiring 5 L of oxygen via nasal cannula, oxygen saturation is dropping to the low 80s without oxygen supplements, patient is complaining of shortness of breath with any activity she has occasional cough, otherwise she denies any complaints there is no fever or chills no headache or dizziness no chest pain no palpitation no nausea or vomiting no abdominal pain no diarrhea and no urinary symptoms. Today patient was started on IV Decadron. Objective - Vital Signs Vital signs: Vital Signs Temp 98.0 F 05/02/20 08:00 Pulse 110 H 05/02/20 12:00 Resp 18 05/02/20 12:00 BP 117/61 05/02/20 12:00 Pulse Ox 88 L 05/02/20 12:00 Intake & Output 05/01/20 05/02/20 05/02/20 18:59 06:59 18:59 Intake Total 315 1020 Output Total 1800 1600 1175 Balance -1485 -1600 -155 Weight 102.5 kg Intake: IV 75 Oral 240 1020 Output: Urine 1800 1600 1175 Other: Voiding Method Indwelling Catheter Indwelling Catheter - Exam In general patient is alert and oriented 3 in no apparent distress HEENT head normocephalic and atraumatic Neck is supple no JVD no goiter no lymphadenopathy Chest exam reveals a few scattered rhonchi no wheezing Cardiac exam reveals regular heart sounds S1 and S2 no gallops no murmurs Abdomen is soft nontender no organomegaly with normal bowel sounds Extremity examination reveals no edema no cyanosis or clubbing Neurological examination reveals no gross focal deficit - Labs CBC & Chem 7: 05/02/20 11:39 05/02/20 11:39 Labs: Abnormal Lab Results - Last 24 Hours (Table) 05/02/20 05/02/20 Range/Units 11:39 11:39 RBC 3.33 L (3.80-5.40) m/uL Hgb 8.5 L (11.4-16.0) gm/dL Hct 27.9 L (34.0-46.0) % MCHC 30.4 L (31.0-37.0) g/dL RDW 17.9 H (11.5-15.5) % Chloride 97 L (98-107) mmol/L Carbon Dioxide 37 H (22-30) mmol/L Glucose 104 H (74-99) mg/dL Albumin 2.9 L (3.5-5.0) g/dL LDL Cholesterol, Calc 112 H (0-99) mg/dL Microbiology - Last 24 Hours (Table) 04/30/20 16:39 Blood Culture - Preliminary Blood No Growth after 24 hours Assessment and Plan Plan: 1. Worsening shortness of breath, with chest x-ray and computed tomography scan of the chest chronic interstitial disease with probable superimposed infiltrates 2. Elevated d-dimer no evidence of pulmonary embolism on computed tomography scan, will check bilateral lower extremity Doppler to rule out DVT 3. Elevated troponin level possible non-ST elevation myocardial infarction patient is maintained on IV heparin cardiology consultation requested 4. Recent Covid 19 pneumonia 5. Underlying history of hypertension 6. Underlying history of COPD 7. Underlying history of hyperlipidemia 8. Underlying history of osteoarthritis and fibromyalgia 9. Underlying history of rheumatoid arthritis with history of lung involvement At this time patient is admitted to telemetry floor. She was started on IV heparin She was started on albuterol updraft, she is maintained on oxygen supplements Cardiology consultation and pulmonary consultation request Will check lower extremity Doppler rule out DVT Recheck labs in a.m. Will follow crackles
[2020-05-02] MEDS: LATANOPROST 0.005% OPHTH DROPS 2.5 ML BTL LEFT EYE SCH (20:50)
[2020-05-03] MEDS: LEVOTHYROXINE 25 MCG TAB PO SCH (06:08)
[2020-05-03] MEDS: PANTOPRAZOLE 40 MG TABLET PO SCH (06:08)
[2020-05-03] MEDS: ALBUTEROL NEBULIZED 2.5 MG/3 ML INHALATION PRN (07:27)
[2020-05-03 08:32] LABS: ALT 11 U/L (4-34); AST 20 U/L (14-36); African American GFR (CKD) >90 (>60 ml/min/1.73 sqM); Albumin 3.3 g/dL (3.5-5.0); Alkaline Phosphatase 78 U/L (38-126); Anion Gap 7 mmol/L; Blood Urea Nitrogen 13 mg/dL (7-17); Calcium 9.2 mg/dL (8.4-10.2); Carbon Dioxide 34 mmol/L (22-30); Chloride 97 mmol/L (98-107); Glucose 125 mg/dL (74-99); Non-African American GFR(CKD) >90 (>60 ml/min/1.73 sqM); Potassium 4.2 mmol/L (3.5-5.1); Sodium 138 mmol/L (137-145); Total Bilirubin 0.5 mg/dL (0.2-1.3); Total Protein 7.3 g/dL (6.3-8.2)
[2020-05-03 08:33] VITALS: RESP 18; TEMP 97.8
[2020-05-03 08:47] LABS: Anisocytosis Slight; Basophils % (A) 0 %; Eosinophils % (A) 0 %; HCT 31.6 % (34.0-46.0); HGB 9.4 gm/dL (11.4-16.0); Hypochromasia Marked; Lymphocytes # (A) 2.4 k/uL (1.0-4.8); Lymphocytes % (A) 23 %; MCH 24.7 pg (25.0-35.0); MCHC 29.8 g/dL (31.0-37.0); MCV 82.8 fL (80.0-100.0); Mean Platelet Volume 6.7; Monocytes # (A) 0.7 k/uL (0-1.0); Monocytes % (A) 6 %; Neutrophils # (A) 7.4 k/uL (1.3-7.7); Neutrophils % (A) 69 %; Platelet Count 465 k/uL (150-450); Poikilocytosis Marked; RBC 3.82 m/uL (3.80-5.40); RDW 17.4 % (11.5-15.5); WBC 10.8 k/uL (3.8-10.6)
[2020-05-03] MEDS: CYANOCOBALAMIN 500 MCG TAB PO SCH (09:32)
[2020-05-03] MEDS: CHOLECALCIFEROL 25 MCG (1000 IU) TABLET PO SCH (09:32)
[2020-05-03] MEDS: ASPIRIN 325 MG TAB PO SCH (09:32)
[2020-05-03] MEDS: FUROSEMIDE 10 MG/ML 2 ML VIAL IV SCH (09:32)
[2020-05-03] MEDS: MAGNESIUM OXIDE 400 MG TAB PO SCH (09:32)
[2020-05-03] MEDS: DEXAMETHASONE SOD PHOSPHATE 10 MG/ML 1 ML VIAL IV SCH (09:32)
[2020-05-03 09:33] LABS: Rouleaux Present
[2020-05-03 12:59] VITALS: BP 131/79; PULSE 108
--- NOTE | 2020-05-03 13:09 | P.PN ---
Subjective Progress Note Date: 05/03/20 HISTORY OF PRESENT ILLNESS: Patient is status post cardiac catheterization with Dr. Womack revealing normal coronary arteries. Patient examined this morning at the bedside. She denies chest pain or pressure. She reports mild shortness of breath. She is currently on 4 L nasal cannula. She reports using home O2 at 4 L. She is hoping to be discharged home today. PHYSICAL EXAM: VITAL SIGNS: Reviewed. GENERAL: Well-developed in no acute distress. NECK: Supple. No JVD or thyromegaly LUNGS: Respirations even and unlabored. Lungs essentially clear to auscultation bilaterally. HEART: Regular rate and rhythm. S1 and S2 heard. EXTREMITIES: Normal range of motion. No clubbing or cyanosis. Peripheral pulses intact. No lower extremity edema. Right groin soft with no hematoma present. Pulse noted. ASSESSMENT: Acute non-ST elevated myocardial infection, status post cardiac catheterization revealing normal coronary arteries Acute on chronic hypoxic respiratory failure, on home O2 Recent Covid infection, February 2020 PLAN: Patient is currently stable for discharge from a cardiac standpoint. Patient to follow-up outpatient. Nurse practitioner note has been reviewed by physician. Signing provider agrees with the documented findings, assessment, and plan of care. Objective - Vital Signs Vital signs: Vital Signs Temp 97.8 F 05/03/20 08:00 Pulse 108 H 05/03/20 12:00 Resp 18 05/03/20 12:00 BP 131/79 05/03/20 12:00 Pulse Ox 89 L 05/03/20 12:00 Intake & Output 05/02/20 05/03/20 05/03/20 18:59 06:59 18:59 Intake Total 1800 240 Output Total 2175 850 Balance -375 -850 240 Weight 98 kg Intake: Oral 1800 240 Output: Urine 2175 850 Other: Voiding Method Indwelling Catheter Indwelling Catheter Indwelling Catheter - Labs CBC & Chem 7: 05/03/20 07:42 05/03/20 07:42 Labs: Abnormal Lab Results - Last 24 Hours (Table) 05/03/20 05/03/20 Range/Units 07:42 07:42 WBC 10.8 H (3.8-10.6) k/uL Hgb 9.4 L (11.4-16.0) gm/dL Hct 31.6 L (34.0-46.0) % MCH 24.7 L (25.0-35.0) pg MCHC 29.8 L (31.0-37.0) g/dL RDW 17.4 H (11.5-15.5) % Plt Count 465 H (150-450) k/uL Chloride 97 L (98-107) mmol/L Carbon Dioxide 34 H (22-30) mmol/L Creatinine 0.50 L (0.52-1.04) mg/dL Glucose 125 H (74-99) mg/dL Albumin 3.3 L (3.5-5.0) g/dL Microbiology - Last 24 Hours (Table) 04/30/20 16:39 Blood Culture - Preliminary Blood No Growth after 48 hours
--- NOTE | 2020-05-03 13:46 | P.DS ---
Providers Date of admission: 04/30/20 18:58 Expected date of discharge: 05/03/20 Attending physician: Beny Glover Consults: 04/30/20 18:56 Consult Physician Urgent Consulting Provider: [facility] Consult Reason/Comments: Non-STEMI Do you want consulting provider notified?: Yes 04/30/20 19:04 Consult Physician Urgent Consulting Provider: Ora Boyer Consult Reason/Comments: Dyspnea Do you want consulting provider notified?: Yes Primary care physician: [facility] Course: Diagnosis on discharge: 1. Worsening shortness of breath, with chest x-ray and computed tomography scan of the chest chronic interstitial disease with probable superimposed infiltrates 2. Elevated d-dimer no evidence of pulmonary embolism on computed tomography scan, will check bilateral lower extremity Doppler to rule out DVT 3. Elevated troponin level possible non-ST elevation myocardial infarction patient is maintained on IV heparin cardiology consultation requested 4. Recent Covid 19 pneumonia 5. Underlying history of hypertension 6. Underlying history of COPD 7. Underlying history of hyperlipidemia 8. Underlying history of osteoarthritis and fibromyalgia 9. Underlying history of rheumatoid arthritis with history of lung involvement Hospital course: Shelbie Minaya, is a 64-year-old female who presented to [facility] emergency room with a chief complaint of worsening shortness of breath, patient had a recent history of Covid 19 pneumonia, she was admitted to [facility] for about 4 weeks she was discharged on 04/02/2020. She was evaluated in the emergency room, her vital examination on presentation revealed a temperature of 98.5 pulse 107 respiration 20 blood pressure 115/58 pulse ox 89% on 4 L nasal cannula, her white blood count was 7.7 hemoglobin 9.4 platelet count 499, d-dimer was elevated at 2.47 troponin level was elevated at 0.5 , BNP was 398 , Coronavirus PCR was negative. EKG was done in the emergency room and revealed sinus tachycardia with premature supraventricular complexes otherwise normal EKG, chest x-ray was done in the emergency room and revealed pulmonary edema with superimposed infiltrates, CT angiogram of the chest revealed evidence of chronic interstitial disease, moderate hiatal hernia, no acute pulmonary embolism. Patient was started on IV heparin and was admitted to telemetry floor cardiology consultation and pulmonary consultation were requested. Past medical history is significant for history of hypertension, history of osteoarthritis, history of fibromyalgia, history of hyperlipidemia, history of COPD, and recent history of Covid 19 pneumonia. On review of systems patient is alert and oriented 3 in no apparent distress, she is complaining of shortness of breath and occasional cough there is no fever or chills no headache or dizziness no chest pain, no nausea or vomiting no abdominal pain no diarrhea no blood in the stools no burning with urination no frequency or urgency and no hematuria. On 05/02/2020 patient was seen and examined on the medical floor she is alert and oriented 3 in no apparent distress she is still requiring 5 L of oxygen via nasal cannula, oxygen saturation is dropping to the low 80s without oxygen supplements, patient is complaining of shortness of breath with any activity she has occasional cough, otherwise she denies any complaints there is no fever or chills no headache or dizziness no chest pain no palpitation no nausea or vomiting no abdominal pain no diarrhea and no urinary symptoms. Today patient was started on IV Decadron. On 05/03/2020 patient was seen and examined on the medical floor she is alert and oriented 3 in no apparent distress she had significant improvement in her shortness of breath evaluated by pulmonary Dr. Boyer this morning and was cleared for discharge she was given a prescription for Decadron 4 mg by mouth twice daily for 10 days and 4 mg by mouth daily for 10 days she will be followed in our office within one week for further evaluation and treatment Plan - Discharge Summary Discharge Rx Participant: No New Discharge Prescriptions: New Dexamethasone [Decadron] 4 mg PO BID #30 tablet Nitroglycerin Sl Tabs [Nitrostat] 0.4 mg SUBLINGUAL Q5M PRN tab PRN Reason: Chest Pain Continue Folic Acid 0.8 mg PO DAILY Cholecalciferol [Vitamin D3 (25 Mcg = 1000 Iu)] 25 mcg PO DAILY Aspirin EC [Ecotrin Low Dose] 81 mg PO DAILY Omeprazole [PriLOSEC] 20 mg PO AC-BRKFST Latanoprost [Xalatan 0.005%] 1 drop LEFT EYE HS Cyanocobalamin (Vitamin B-12) [Vitamin B-12] 1,000 mcg PO DAILY Levothyroxine Sodium [Euthyrox] 25 mcg PO DAILY Furosemide [Lasix] 40 mg PO BID Albuterol Inhaler [Ventolin Hfa Inhaler] 2 puff INHALATION RT-QID PRN PRN Reason: Shortness Of Breath ALPRAZolam [Xanax] 0.25 mg PO HS PRN PRN Reason: SLEEP Magnesium Oxide 400 mg PO DAILY Naproxen Sodium [Aleve] 440 mg PO Q12HR PRN PRN Reason: Pain Discharge Medication List Folic Acid 0.8 mg PO DAILY 01/08/15 [History] ALPRAZolam [Xanax] 0.25 mg PO HS PRN 04/30/20 [History] Albuterol Inhaler [Ventolin Hfa Inhaler] 2 puff INHALATION RT-QID PRN 04/30/20 [History] Aspirin EC [Ecotrin Low Dose] 81 mg PO DAILY 04/30/20 [History] Cholecalciferol [Vitamin D3 (25 Mcg = 1000 Iu)] 25 mcg PO DAILY 04/30/20 [History] Cyanocobalamin (Vitamin B-12) [Vitamin B-12] 1,000 mcg PO DAILY 04/30/20 [History] Furosemide [Lasix] 40 mg PO BID 04/30/20 [History] Latanoprost [Xalatan 0.005%] 1 drop LEFT EYE HS 04/30/20 [History] Levothyroxine Sodium [Euthyrox] 25 mcg PO DAILY 04/30/20 [History] Magnesium Oxide 400 mg PO DAILY 04/30/20 [History] Naproxen Sodium [Aleve] 440 mg PO Q12HR PRN 04/30/20 [History] Omeprazole [PriLOSEC] 20 mg PO AC-BRKFST 04/30/20 [History] Dexamethasone [Decadron] 4 mg PO BID #30 tablet 05/03/20 [Rx] Nitroglycerin Sl Tabs [Nitrostat] 0.4 mg SUBLINGUAL Q5M PRN tab 05/03/20 [Rx] Follow up Appointment(s)/Referral(s): [facility], [NON-STAFF] - Beny Glover MD [Primary Care Provider] - 1-2 days (please call office when open to make follow up appointment) Jose Womack MD [STAFF PHYSICIAN] - 2 Weeks (office will call with date and time of follow up appointment) Ora Boyer MD [STAFF PHYSICIAN] - 05/24/20 2:45 pm (scheduled with GLADYS QUIROZ) Patient Instructions/Handouts: *[facility] - After Heart Catheterization - [employer] Teacher Instructions
--- NOTE | 2020-05-03 13:57 | XR ---
EXAMINATION TYPE: XR chest 1V portable DATE OF EXAM: 05/03/2020 HISTORY: Shortness of breath. COMPARISON: April 30, 2020 TECHNIQUE: Single view of the chest is submitted. FINDINGS: Demonstrated are scattered senescent parenchymal change. Coarse infiltrates are seen throughout both lung conway. The heart is stable. Hilar and mediastinal structures are within normal limits. Degenerative changes are seen of the dorsal spine. IMPRESSION: 1. Coarse infiltrates are seen throughout both lung conway.
--- NOTE | 2020-05-03 15:29 | P.PN ---
Subjective Progress Note Date: 05/03/20 Principal diagnosis: Dyspnea, abnormal chest x-ray This a very pleasant 64-year-old female patient who follows with Dr. Waddell is her primary care provider. 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 She had recently been admitted to [facility] for CoVID 19 pneumonia. She was discharged on 04/02/2020 and had been doing quite well. She also has a history of rheumatoid arthritis and follows with Dr. Koenig in [place]. She had been recently started on Rinvoq. She had been on multiple previous rheumatoid medications in the past. She presented here to the emergency room yesterday with a 2-3 day history of increasing shortness of breath, cough and congestion. A visiting nurse heard crackles and her oxygenation was in the 80s so she was sent in for the same. CT angiogram revealed chronic interstitial disease/fibrosis with probable superimposed moderate opacities. Moderate bronchiectasis. No evidence of pulmonary emboli. Moderate hiatal hernia. Echocardiogram revealed preserved left ventricular systolic function with ejection fraction 55-60%. No significant valvular heart disease. White count 7.7. Hemoglobin 9.4. D-dimer 2.47. Sodium 139. Potassi um 3.8. Creatinine 0.81. Actiq acid 1.8. Villela virus not detected. Troponin 0.5, 0.4, 0.4. She did undergo cardiac catheterization this morning that did not reveal any significant blockage according to the patient. Report is pending. She is seen today in consultation on the selective care unit. She is currently resting flat in bed. Awake and alert in no acute distress. Still with some dyspnea with minimal exertion. She is maintaining O2 saturation in the mid 90s on 5 L/m per nasal cannula. She's afebrile. She had been initiated on a heparin drip originally. IV diuretics at 20 mg Lasix every 8 hours. On 05/02/2020 patient seen in follow-up on selective care unit, she is currently on 6 L of oxygen pulse ox 94-95%, no convincing chest pain. She continues on diuretics, she had a heart cath done yesterday which showed no significant coronary artery disease. No worsening dyspnea, no new chest x-ray today. His labs have been reviewed, blood blood cell count of 7.2, hemoglobin of 8.5, sodium is 137, potassium is 4.7, CO2 is 27, B1 is 12 creatinine 0.65, her Covid 19 recheck was negative, continues on Lasix 20 mg every 8 hours, patient's echocardiogram showed ejection fraction of 55-60%, mild MR and mild TR, and mild pulmonary hypertension On 05/03/2020 patient seen in follow-up on selective care unit, she is calm and comfortable, she remains on 5 L of oxygen, her pulse ox is 89-94%, she does get short of breath on exertion, but overall she states she is feeling better, and breathing easier, today's chest x-ray has been reviewed showing coarse infiltrates throughout both lung conway. Patient has been diuresed, she is in - 1.2 L fluid balance over the last 24 hours, sounds reveal minimal crackles bilateral bases, no acute events overnight, today's labs have been reviewed, showing sodium of 138, potassium is 4.2, chloride is 97, CO2 is 34, BUN is 13, creatinine 0.5, white blood cell, was 10.8 coming in hemoglobin is 9.4. Patient denies any chest pain. Objective - Vital Signs Vital signs: Vital Signs Temp 97.8 F 05/03/20 08:00 Pulse 108 H 05/03/20 12:00 Resp 18 05/03/20 14:00 BP 131/79 05/03/20 12:00 Pulse Ox 89 L 05/03/20 12:00 Intake & Output 05/02/20 05/03/20 05/03/20 18:59 06:59 18:59 Intake Total 1800 480 Output Total 2175 850 Balance -375 -850 480 Weight 98 kg Intake: Oral 1800 480 Output: Urine 2175 850 Other: Voiding Method Indwelling Catheter Indwelling Catheter Indwelling Catheter - Exam GENERAL EXAM: Alert, very pleasant, 64-year-old white female, 5 L of oxygen pulse ox of 93-94% comfortable in no apparent distress. HEAD: Normocephalic/atraumatic. EYES: Normal reaction of pupils, equal size. Conjunctiva pink, sclera white. NOSE: Clear with pink turbinates. THROAT: No erythema or exudates. NECK: No masses, no JVD, no thyroid enlargement, no adenopathy. CHEST: No chest wall deformity. Symmetrical expansion. LUNGS: Equal air entry with mild bibasilar crackles CVS: Regular rate and rhythm, normal S1 and S2, no gallops, no murmurs, no rubs ABDOMEN: Soft, nontender. No hepatosplenomegaly, normal bowel sounds, no guarding or rigidity. EXTREMITIES: No clubbing, no edema, no cyanosis, 2+ pulses and upper and lower extremities. MUSCULOSKELETAL: Muscle strength and tone normal. SPINE: No scoliosis or deformity SKIN: No rashes CENTRAL NERVOUS SYSTEM: Alert and oriented -3. No focal deficits, tone is normal in all 4 extremities. PSYCHIATRIC: Alert and oriented -3. Appropriate affect. Intact judgment and insight. - Labs CBC & Chem 7: 05/03/20 07:42 05/03/20 07:42 Labs: Abnormal Lab Results - Last 24 Hours (Table) 05/03/20 05/03/20 Range/Units 07:42 07:42 WBC 10.8 H (3.8-10.6) k/uL Hgb 9.4 L (11.4-16.0) gm/dL Hct 31.6 L (34.0-46.0) % MCH 24.7 L (25.0-35.0) pg MCHC 29.8 L (31.0-37.0) g/dL RDW 17.4 H (11.5-15.5) % Plt Count 465 H (150-450) k/uL Chloride 97 L (98-107) mmol/L Carbon Dioxide 34 H (22-30) mmol/L Creatinine 0.50 L (0.52-1.04) mg/dL Glucose 125 H (74-99) mg/dL Albumin 3.3 L (3.5-5.0) g/dL Microbiology - Last 24 Hours (Table) 04/30/20 16:39 Blood Culture - Preliminary Blood No Growth after 48 hours Assessment and Plan Plan: Assessment: 1 Acute on chronic hypoxic respiratory failure secondary to acute patchy infiltrates on top of chronic interstitial lung disease. 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 Possibility of ongoing Covid 19 infection was ruled out GI coronavirus PCR test 2 Acute non-ST segment elevation myocardial infarction reported to have no significant coronary artery disease, report pending. 3 Recent admission for CoVID 19 pneumonia at [facility]. 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 Boyer. I performed a history & physical examination of the patient and discussed their management with my nurse practitioner, Niki Moss. I reviewed the nurse practitioner's note and agree with the documented findings and plan of care. Lung sounds are positive for diminished breath sounds. The findings and the impression was discussed with the patient. I attest to the documentation by the nurse practitioner. Time with Patient: Less than 30
== END 2020-05-03 16:28 | disposition home or self-care (01) | DRG 280 ==
LOC: EC 15:47 → 3SCARD 18:58
PROVIDERS: ADMIT Internal Medicine; ATTEND Internal Medicine
PROC: 4A023N7 Measurement of Cardiac Sampling and Pressure, Left Heart, Percutaneous Approach (ICD-10-PCS; principal; 2020-05-01 09:30)
PROC: B2111ZZ Fluoroscopy of Multiple Coronary Arteries using Low Osmolar Contrast (ICD-10-PCS; principal; 2020-05-01 09:30)
DX: I21.4 Non-ST elevation (NSTEMI) myocardial infarction (principal); J96.21 Acute and chronic respiratory failure with hypoxia; J84.9 Interstitial pulmonary disease, unspecified; M19.90 Unspecified osteoarthritis, unspecified site; J44.9 Chronic obstructive pulmonary disease, unspecified; I10 Essential (primary) hypertension; E78.5 Hyperlipidemia, unspecified; E03.9 Hypothyroidism, unspecified; Z86.16 Personal history of COVID-19; M79.7 Fibromyalgia; M06.9 Rheumatoid arthritis, unspecified; Z20.822 Contact with and (suspected) exposure to COVID-19; K44.9 Diaphragmatic hernia without obstruction or gangrene; I27.20 Pulmonary hypertension, unspecified; I49.1 Atrial premature depolarization; I77.819 Aortic ectasia, unspecified site; Z88.0 Allergy status to penicillin; Z88.5 Allergy status to narcotic agent; Z91.09 Other allergy status, other than to drugs and biological substances; Z90.710 Acquired absence of both cervix and uterus; Z90.01 Acquired absence of eye; Z87.891 Personal history of nicotine dependence; Z87.01 Personal history of pneumonia (recurrent); Z86.73 Personal history of transient ischemic attack (TIA), and cerebral infarction without residual deficits; Z80.0 Family history of malignant neoplasm of digestive organs; Z79.890 Hormone replacement therapy; Z79.82 Long term (current) use of aspirin
CPT/HCPCS: 36415; 71045; 71046; 71275; 80053; 80061; 83605; 83735; 83880; 84484; 85025; 85379; 85610; 85730; 87040; 87635; 93005; 93306; 93458; 94640; 94760; 96361; 96365; 96366; 96376; 99291

== ENCOUNTER → 2020-07-25 | Outpatient (CLI) | payer MEDICARE ==
[2020-07-25 17:32] LABS: African American GFR (CKD) >90 (>60 ml/min/1.73 sqM); Blood Urea Nitrogen 15 mg/dL (7-17); Non-African American GFR(CKD) >90 (>60 ml/min/1.73 sqM)
--- NOTE | 2020-07-25 19:55 | CT ---
EXAMINATION TYPE: CT angio chest DATE OF EXAM: 07/25/2020 COMPARISON: 04/30/2020 HISTORY: Shortness of breath. CT DLP: 498.8 mGycm Automated exposure control for dose reduction was used. CONTRAST: Performed with IV Contrast, patient injected with 100 mL of Isovue 370. Images obtained from the thoracic inlet to the diaphragm with IV contrast. There is extensive groundglass interstitial infiltrate in both lungs. There is also coarse reticular peripheral infiltrate with honeycomb pattern. Heart is enlarged. There is no pericardial effusion. Th ere is hiatal hernia. There is no pleural effusion. There is no evidence of filling defect in the pulmonary arteries. There is a few mediastinal and bron chial lymph nodes up to 1 cm. Thoracic aorta shows mild aneurysm involving the ascending aorta measur ing 4.3 cm. There is no dissection. There is coronary artery calcification. There is some degenerativ e spurring in the thoracic spine. There is no significant compression deformity. IMPRESSION: No evidence of pulmonary embolism. Extensive pulmonary infiltrates similar to old exam and consistent with advanced fibrosis. Hiatal hernia unchanged. There is improvement in the mediastinal and bronchi al adenopathy compared to old exam. Atherosclerotic vascular disease. 4.3 cm aneurysm of the ascending aorta. No dissection. Aneurysm appears the same or slightly increase d compared to recent exam.
== END | disposition home or self-care (01) ==
LOC: RADCTMAIN 16:26
PROVIDERS: ATTEND Nurse Practitioner Adult Health
DX: I71.2 Thoracic aortic aneurysm, without rupture (principal); R91.8 Other nonspecific abnormal finding of lung field; K44.9 Diaphragmatic hernia without obstruction or gangrene
CPT/HCPCS: 82565; 84520; 71275; 36415; Q9967

== ENCOUNTER → 2021-07-24 | Outpatient (CLI) | payer MEDICARE ==
[2021-07-24 10:51] LABS: African American GFR (CKD) >90 (>60 ml/min/1.73 sqM); Blood Urea Nitrogen 14 mg/dL (7-17); Non-African American GFR(CKD) >90 (>60 ml/min/1.73 sqM)
--- NOTE | 2021-07-24 12:10 | CT ---
EXAMINATION TYPE: CT angio chest DATE OF EXAM: 07/24/2021 COMPARISON: 07/25/2020 HISTORY: Thoracic aortic aneurysm CT DLP: 894.1 mGycm CONTRAST: CTA thoracic aorta with 3-D reconstruction is performed and without and with IV Contrast, patient inj ected with 100 mL of Isovue 370. Contrast CTA of the thoracic aorta was performed from the lung apex through the upper abdomen. 3D re construction imaging obtained at a separate workstation. CT Chest: THORACIC AORTA: Ascending thoracic aortic aneurysm is redemonstrated and measures 4.2 cm versus 4.3 c m previously. There is no evidence for complicating factor such as dissection or para-aortic hematoma . The remainder of the thoracic aorta is of normal caliber with mild atheromatous change noted. LUNGS: Coarse interstitial markings are redemonstrated compatible with underlying fibrosis. No eviden ce for focal consolidation. No evidence for pulmonary mass. No pleural effusion. MEDIASTINUM: Moderate fixed hiatal hernia. Cardiomegaly with coronary artery calcifications No evid ence for mediastinal hematoma. The heart is not enlarged. No evidence for mediastinal mass or adeno neema. HILAR STRUCTURES: No evidence for mass. No hilar adenopathy is appreciated. OTHER: No significant abnormality. IMPRESSION- Stable mild ascending thoracic aortic aneurysm. Underlying pulmonary fibrosis.
== END | disposition home or self-care (01) ==
LOC: RADCTMAIN 09:54
PROVIDERS: ATTEND Thoracic Surgery (Cardiothoracic Vascular Surgery)
DX: I71.2 Thoracic aortic aneurysm, without rupture (principal); J84.10 Pulmonary fibrosis, unspecified
CPT/HCPCS: 82565; 84520; 71275; 36415; Q9967

== ENCOUNTER → 2021-09-02 | Outpatient (CLI) | payer MEDICARE ==
--- NOTE | 2021-09-04 18:30 | MM ---
Reason for Exam: Screening (asymptomatic). Last mammogram was performed 2 year(s) and 1 month(s) ago. Patient History: Menarche at age 9. First Full-Term at age 18. Right ovary removed at age 16. Hysterectomy at age 42. Postmenopausal. MG stereo VAD BX LT - 2 on the Left side. Maternal aunt had breast cancer. Maternal aunt had breast cancer. Risk Values: Sheron 5 year model risk: 2.0%. NCI Lifetime model risk: 6.4%. Prior Study Comparison: 03/11/2011 Bilateral Screening Mammogram, [facility]. 10/17/2014 Bilateral Screening Mammogram, [facility]. 11/12/2015 Bilateral Screening Mammogram, [facility]. 07/21/2018 Bilateral MG screening mammo w CAD - 2, [facility]. 08/18/2019 Bilateral MG screening mammo w CAD - 2, [facility]. Tissue Density: The breast tissue is almost entirely fat. Findings: Analyzed By CAD. Chronic nodularity 11:00 anterior right breast. Microclip lateral left breast from prior biopsy. No significant change from prior exams. Overall Assessment: Benign, BI-RAD 2 Management: Screening Mammogram of both breasts in 1 year. 1. Patient should continue monthly self breast exams. 2. This exam should not preclude additional follow-up of suspicious palpable abnormalities. Electronically signed and approved by: Aida Kenyon M.D. Radiologist
== END | disposition home or self-care (01) ==
LOC: RADMAMWWP 14:47
PROVIDERS: ATTEND Internal Medicine
DX: Z12.31 Encounter for screening mammogram for malignant neoplasm of breast (principal); Z78.0 Asymptomatic menopausal state; Z80.3 Family history of malignant neoplasm of breast
CPT/HCPCS: 77063; 77067

== ENCOUNTER → 2022-02-04 | Outpatient (CLI) | payer MEDICARE ==
--- NOTE | 2022-02-04 14:56 | XR ---
EXAMINATION TYPE: XR lumbosacral spine min 4V DATE OF EXAM: 02/04/2022 11:50 AM INDICATION: Patient age:Female; 66 years old; Reason for study: M54.50 Low back pain; COMPARISON: None TECHNIQUE: Frontal, lateral , bilateral oblique and coned in L5-S1 lateral views of the spine. FINDINGS: No evidence of any acute osseous pathology. No evidence of loss of vertebral body height i s seen. There is increased lordosis with grade 2 anterolisthesis of L4 and L5 Grade 1 of L5 on S1. Moderate osteophyte formation and disc space narrowing are seen in the thoracolu mbar region. There is facet joint arthropathy throughout the spine. Neural foraminal stenosis worse a t L4-L5 and L5-S1. There is atherosclerosis of the arterial vasculature. IMPRESSION: Moderate disc degeneration changes with grade 2 anterolisthesis of L4 on L5 and grade 1 of L5-L1.
== END | disposition home or self-care (01) ==
LOC: RADXRMAIN 11:25
PROVIDERS: ATTEND Internal Medicine
DX: M51.36 Other intervertebral disc degeneration, lumbar region (principal); M43.16 Spondylolisthesis, lumbar region; M54.50 Low back pain, unspecified
CPT/HCPCS: 72110

== ENCOUNTER → 2022-02-04 | Outpatient (CLI) | payer MEDICARE ==
--- NOTE | 2022-02-04 12:10 | US ---
EXAMINATION TYPE: US venous doppler duplex LE LT DATE OF EXAM: 02/04/2022 11:20 AM COMPARISON: NONE CLINICAL HISTORY: M79.662 PAIN LEFT LOWER LIMP R22.42 SWELLING. Left leg pain SIDE PERFORMED: Left TECHNIQUE: The lower extremity deep venous system is examined utilizing real time linear array sonog dani with graded compression, doppler sonography and color-flow sonography. VESSELS IMAGED: Common Femoral Vein Deep Femoral Vein Greater Saphenous Vein * Femoral Vein Popliteal Vein Small Saphenous Vein * Proximal Calf Veins (* superficial vessels) Left Leg: Appears negative for DVT Grayscale, color doppler, spectral doppler imaging performed of the deep veins of the lower extremiti es. There is normal flow, compressibility, vascular waveforms. IMPRESSION: No evidence for left lower extremity deep vein tendinosis.
== END | disposition home or self-care (01) ==
LOC: RADUSWWP 10:52
PROVIDERS: ATTEND Internal Medicine
DX: M79.662 Pain in left lower leg (principal); R22.42 Localized swelling, mass and lump, left lower limb

== ENCOUNTER → 2022-03-19 | Outpatient (CLI) | payer MEDICARE ==
--- NOTE | 2022-03-19 12:15 | MR ---
EXAMINATION TYPE: MR lumbar spine wo con DATE OF EXAM: 03/19/2022 8:19 AM COMPARISON: 06/27/2013. CLINICAL INDICATION:Female, 66 years old with history of M54.50 low back pain; TECHNIQUE: Multi planar, multi sequence imaging was performed utilizing: T1-weighted, T2-weighted, a nd turbo inversion recovery imaging of the lumbar spine. IV Contrast: None. FINDINGS: Alignment: The lumbar vertebral bodies have preserved heights. Grade 2 anterolisthesis of L4 and L5. No evidence for abnormal bony edema within the pedicles. Cord: The conus medullaris and the distal spinal cord appear unremarkable with regards to their signa l intensity and morphology. Bones/Discs: Scattered Modic endplate changes are seen throughout the spine most pronounced at the mullen perior and inferior endplate of L2 as well as the adjoining endplates of L5-S1. Multilevel degenerati ve disc disease is noted and most pronounced at the L2-L5 with scattered Schmorl's nodes, and osteoph ytes. Multilevel disc desiccation is present. T11-T12: Left central disc protrusion which abuts and slightly displaces the spinal cord posteriorly. No evidence of significant neural foraminal stenosis. L1-L2: Disc bulge and facet joint arthropathy result in mild spinal canal and mild bilateral neural f oraminal stenosis. L2-L3: No evidence of significant spinal canal stenosis or neural foraminal stenosis. L3-L4: No evidence of significant spinal canal stenosis or neural foraminal stenosis. L4-L5: Grade 2 anterolisthesis with disc uncovering, disc bulging and facet joint arthropathy resulti ng in severe spinal canal stenosis and moderate to severe bilateral neural foraminal stenosis. L5-S1: Left central disc protrusion which has mild inferior migration up to 7 mm. This abuts the form ing nerves on the left. Facet joint arthropathy is also present which results in mild to moderate olman ateral neural foraminal stenosis. Other: Right renal cyst. IMPRESSION: Overall findings have progressed from prior in 2013. 1. L5-S1 left central disc protrusion which abuts the forming nerves at this level on the left. 2. L4-L5 severe spinal canal stenosis secondary to grade 2 anterolisthesis, facet joint arthropathy and disc bulge. 3. T11-T12 left central disc protrusion which abuts and slightly displaces the spinal cord. No abnor mal signal changes within the cord.
== END | disposition home or self-care (01) ==
LOC: RADMRIMAIN 07:31
PROVIDERS: ATTEND Internal Medicine
DX: M51.27 Other intervertebral disc displacement, lumbosacral region (principal); M48.061 Spinal stenosis, lumbar region without neurogenic claudication; M43.16 Spondylolisthesis, lumbar region; M51.24 Other intervertebral disc displacement, thoracic region
CPT/HCPCS: 72148

== ENCOUNTER 2022-06-18 11:32 | Day surgery (SDC) | payer MEDICARE ==
[~2022-06-18 11:32] MED LIST: LACTATED RINGERS 1,000 ML IV SCH; LIDOCAINE 1% (10MG/ML) FOR IV START INTRADERMA PRN
[2022-06-18 11:54] VITALS: TEMP 97.1
[2022-06-18] MEDS ORDERED: MIDAZOLAM 2 MG/2 ML VIAL ONE (12:19)
[2022-06-18] MEDS ORDERED: IOPAMIDOL M200 10 ML VIAL ONE (12:19)
[2022-06-18] MEDS ORDERED: methylPREDNISolone ACETATE 80 MG/ML 1 ML VIAL ONE (12:19)
[2022-06-18] MEDS ORDERED: fentaNYL (PF) 50 MCG/ML 2 ML AMP ONE (12:19)
--- NOTE | 2022-06-18 12:30 | P.PCN ---
Date of Procedure: 06/18/22 Procedure(s) Performed: PREOPERATIVE DIAGNOSIS: 1- Lumbar Degenerative Disc Diseases 2-Lumbar spondylosis with Facet arthropathy without myelopathy. POSTOPERATIVE DIAGNOSIS: 1-lumbar degenerative disc disease. 2-lumbar spondylosis with facet arthropathy without myelopathy. PROCEDURE 1. Lumbar epidural steroid injection under fluoroscopic guidance at the L5-S1 level. (Fluoroscopy imaging was available in radiology department) 2. Lumbar epidurogram. ANESTHESIA: moderate sedation with intravenous Versed 1 mg ,and fentanyle 50 Mcg Sedation start time : 1223 Sedation end time : 1228 EBL: Minimal PROCEDURE INDICATION: The patient with low back pain and radiculitis symptoms unresponsive to conservative treatment. Fluoroscopy was used to optimize visualization of the needle placement and to maximize safety. PROCEDURE DESCRIPTION / TECHNIQUE: The patient was seen and identified in the preoperative area. Risks, benefits, complications including but not limited to infections ,bleeding ,allergic reacti on to the medications ,nerve damage and not complete pain releife , and alternatives were discussed with the patient. The patient agreed to proceed with the procedure and signed the consent. IV was started, and vital signs were stable. Patient was taken to the OR and time out was completed. The patient was placed in the prone position on procedure table and a pillow was placed under the abdomen to reduce lumbar lordosis. The lumbosacral area was prepped and draped in the usual sterile fashion.ere closely monitored during the procedure. Conscious sedation was used during the procedure to decrease patients anxiety. Vital signs was monitered during the entire procedure. Using anterior-posterior fluoroscopy, the L5-S1 interlaminar space was identified and the skin over this site was marked and then infiltrated with 1% lidocaine subcutaneously. Subsequently, a 20-gauge Tuohy epidural needle was inserted and advanced toward the epidural space using the ``Loss of resistance technique and guided by AP and lateral fluoroscopy. The correct needle position in the epidural space was verified with the injection of 2 mL of the water soluble contrast dye Isovue 200 contrast and observing an excellent epidurogram with the epidural spread of the dye, after negative aspiration for blood and CSF and in the absence of paresthesias. Again after negative aspiration, a 6 ml mixture containing 60 mg of Depo-medrol ( Preservetive Free ), and 2 ml of preservative free Normal Saline, and 2 ml of preservative free lidocaine 1% solution was injected and a washout of epidurogram was seen. Needle was withdrawn intact, skin was cleansed, and bandages were applied. COMPLICATIONS: None DISPOSITION / PLANS: The patient was placed in a supine position and transferred to the recovery area in a stable condition for observation. There was no evidence of lower extremity motor or sensory deficit after the procedure. Patient was discharged from the recovery room after meeting discharge criteria. Home discharge instructions were given to the patient by the staff. The patient was reexamined prior to discharge. The patient will schedule a follow up in the clinic in 2-4 weeks.
[2022-06-18] MEDS ORDERED: IV FLUID CONTINUATION 1,000 ML IV ONE ×2 (12:32)
[2022-06-18 12:39] VITALS: RESP 16
--- NOTE | 2022-06-18 12:40 | FL ---
Intraoperative/procedural fluoroscopic services were provided. Total fluoroscopy time is 2 seconds wi th a total of 1 submitted images to PACS. Please see the operative/procedural note for further detail s. DAP: [phone]
[2022-06-18 12:48] VITALS: BP 114/76; PULSE 76
== END 2022-06-18 13:02 | disposition home or self-care (01) ==
LOC: ORPAIN 11:32
PROVIDERS: ATTEND Specialist
DX: M51.16 Intervertebral disc disorders with radiculopathy, lumbar region (principal); M47.26 Other spondylosis with radiculopathy, lumbar region; Z88.0 Allergy status to penicillin; Z88.6 Allergy status to analgesic agent; Z88.8 Allergy status to other drugs, medicaments and biological substances
CPT/HCPCS: 62323; J2250; J1040; J3010; Q9966

== ENCOUNTER → 2022-07-06 | Outpatient (CLI) | payer MEDICARE ==
[2022-07-06 12:55] VITALS: BP 111/78; PULSE 94; RESP 18; TEMP 97.8
--- NOTE | 2022-07-06 14:35 | P.PAINPG ---
PQRS Measure Charge Sheet Comment: A 66 yr old female with a history of severe and chronic LBP x yrs secondary to lumbar DDD and spondylosis with facet arthropathy without myelopathy presents today for evaluation s/p MEJIA L5-S1. Pt states she experienced 80 % pain relief x 2-3 wks s/p procedure. Pain level is provoked at 7 /10 in intensity, constant, localized in the lumbar spine, burning in character w shooting towards the LLE. Pain is provoked by any movement. Pain is minimally alleviated with PT years ago which was ineffective, massage therapy which he cannot afford out of pocket expenses, chiropractic treatments which are contraindicated by his physician, ice, medications (Aleve), CBD topical, reclining and rest. Interventional pain procedures completed include MEJIA L5-S1 x1 Patient is currently on Aleve Patient denies any side effects of the medication(s), denies excessive drowsiness or sleepiness, denies suicidal ideation and reports that the current pain medication is helping to control the pain and improve activities of daily living. Patient denies any motor or sensory deficits. Patient denies any fever or night sweats, denies any change in the bowel movements or urination. Physical Examination: -Constitutional: Cooperative. Not in acute distress . - Neurologic: Cranial nerve II to XII intact. No focal neurological deficits. - Psychatric: Alert & oriented x 3. Matching mood & appropriate affect. Judgment and insight intact. - Musculoskeletal: Cervical spine: Muscle bulk/ tone/ strength in the bilateral upper extremities normal Vertebral body tenderness to palpation over Spurling test positive Distraction test positive Facet loading test positive TTP Thoracic spine Muscle bulk / tone/ strength in the bilateral paraspinal muscles normal Vertebral body tender to palpation over Facet loading test positive TTP Lumbar spine: Motor bulk/ tone/ strength lower extremities , thigh and legs : 5/5 Deep tendon reflexes : Normal Knee Jerk. Normal Ankle Jerk . Vertebral body tenderness to palpation over L5 Lumbar Facet Loading Test positive Straight Leg Raise: positive at 30 degrees right side/ left side Gaenslen's Test positive Sacral spine : Severe tenderness over the Sacroiliac joint: right side / left side Range of motion: Flexion of the lumbar spine <60 degrees Range of motion: Extension of the lumbar spine <20 degrees Gaenslen's Test positive right side / left side Tim test: positive right side / left side Thigh Thrust Test positive right side / left side Sacral Thrust Test positive right side / left side Assessment and plan: Chronic LBP secondary to lumbar DDD, spondylosis with facet arthropathy without myelopathy Recommendation of L paramedian MEJIA L5-S1 #2. May need a series of injections for optimal pain relief. Risks, benefits of procedure discussed and pt verbalized understanding. Admits to anticoagulant use or medical history of diabetes. Protocol for discontinuation/ continuation of medications tita procedure discussed. All questions answered. I have spent less than 30 minutes on patient care today. Dr Pires was available by phone for the evaluation of this patient. The time was used to review the medical records including relevant urine studies and Prescription history (MAPs), review of the available imaging, evaluation and examination of the patient, coordination of care with the medical staff and if applicable referring physicians, as well as creation of the medical record - Pain Location Bilateral Lower Back Non-Pharmacological Interventions: Ice Pharmacological Interventions: PRN Medication PQRS Narrative: Smoking Status Current every day smoker Hx Alcohol Use (MH) No Home Medications: Ambulatory Orders Folic Acid 0.8 mg PO DAILY 01/08/15 Albuterol Inhaler [Ventolin Hfa Inhaler] 2 puff INHALATION RT-QID PRN 04/30/20 Aspirin EC [Ecotrin Low Dose] 81 mg PO DAILY 04/30/20 Cholecalciferol [Vitamin D3 (25 Mcg = 1000 Iu)] 25 mcg PO DAILY 04/30/20 Cyanocobalamin (Vitamin B-12) [Vitamin B-12] 1,000 mcg PO DAILY 04/30/20 Furosemide [Lasix] 40 mg PO BID 04/30/20 Latanoprost [Xalatan 0.005%] 1 drop LEFT EYE HS 04/30/20 Levothyroxine Sodium [Euthyrox] 25 mcg PO DAILY 04/30/20 Naproxen Sodium [Aleve] 440 mg PO Q12HR PRN 04/30/20 Omeprazole [PriLOSEC] 20 mg PO AC-BRKFST 04/30/20 Nitroglycerin Sl Tabs [Nitrostat] 0.4 mg SUBLINGUAL Q5M PRN tab 05/03/20 Leflunomide 20 mg PO DAILY 06/16/22 predniSONE 5 mg PO DAILY 06/16/22 Controlled Substance Measures - Controlled Substance Measures Is patient prescribed a controlled substance at discharge?: No
== END ==
LOC: PNWHC3 12:21
PROVIDERS: ATTEND Specialist
DX: M51.36 Other intervertebral disc degeneration, lumbar region (principal); M47.816 Spondylosis without myelopathy or radiculopathy, lumbar region; G89.29 Other chronic pain; F17.200 Nicotine dependence, unspecified, uncomplicated; Z79.82 Long term (current) use of aspirin; Z88.5 Allergy status to narcotic agent; Z88.0 Allergy status to penicillin; Z91.048 Other nonmedicinal substance allergy status
CPT/HCPCS: 99211

== ENCOUNTER → 2022-07-21 | Outpatient (CLI) | payer MEDICARE ==
[2022-07-21 13:43] LABS: African American GFR (CKD) >90 (>60 ml/min/1.73 sqM); Blood Urea Nitrogen 14 mg/dL (7-17); Non-African American GFR(CKD) >90 (>60 ml/min/1.73 sqM)
--- NOTE | 2022-07-21 17:36 | CT ---
EXAMINATION TYPE: CT angio chest DATE OF EXAM: 07/21/2022 COMPARISON: 07/24/2021 HISTORY: 67-year-old female I 7 1.2, thoracic aortic aneurysm. TECHNIQUE: Contiguous axial scanning of the chest performed without and with IV Contrast, patient inj ected with 100 mL of Isovue 370. Coronal/sagittal reconstructions performed. 3-D reconstructions gene rated on a dedicated independent workstation. CT DLP: 1090.8 mGycm Automated exposure control for dose reduction was used. FINDINGS: Heart is mildly enlarged. No pericardial effusion. Ectasia aortic root at 3.9 cm is unchanged. Mild aneurysm ascending aorta 4.3 cm is unchanged. Mild atherosclerotic change throughout the thoracic aorta. Conventional arch vessel branching anatomy . Mildly tortuous descending thoracic aorta. No evidence for aortic dissection or acute intracranial hematoma. No thoracic lymphadenopathy by CT size criteria. Mild to moderate centrilobular emphysema. Extensive reticular changes present throughout with areas o f groundglass density and some bronchiolectasis. Overall similar appearance to 07/24/2021. The irregular 9 x 4 mm nodule anterior right upper lobe remains unchanged. No new consolidation or pl eural effusion is seen. ABDOMEN: Moderate-sized hiatal hernia involving third of the stomach in the lower chest. Visualized u pper abdomen otherwise shows a 3.7 cm benign cortical cyst laterally in the right kidney and a couple tiny splenules. Moderate to advanced degenerative disc disease lower thoracic and upper lumbar spine with accentuated lower thoracic kyphosis. IMPRESSION: 1. SIMILAR ECTATIC AORTIC ROOT AT 3.9 CM IN MILD ANEURYSM ASCENDING AORTA 4.3 CM. 2. MILD CARDIOMEGALY. 3. COPD WITH MODERATE EMPHYSEMA. SUSPECT EXTENSIVE POSTINFECTIOUS/POSTINFLAMMATORY SCARRING AND FIBRO SIS THROUGHOUT THE LUNGS. SIMILAR APPEARANCE COMPARED TO 07/24/2021. 4. MODERATE-SIZED HIATAL HERNIA.
== END | disposition home or self-care (01) ==
LOC: RADCTMAIN 13:08
PROVIDERS: ATTEND Thoracic Surgery (Cardiothoracic Vascular Surgery)
DX: I77.810 Thoracic aortic ectasia (principal); J43.2 Centrilobular emphysema; K44.9 Diaphragmatic hernia without obstruction or gangrene; I51.7 Cardiomegaly; J98.4 Other disorders of lung; J84.10 Pulmonary fibrosis, unspecified
CPT/HCPCS: 82565; 84520; 71275; 36415; Q9967

== ENCOUNTER → 2022-09-04 | Outpatient (CLI) | payer MEDICARE ==
--- NOTE | 2022-09-07 09:24 | MM ---
Reason for Exam: Screening (asymptomatic). Last screening mammogram was performed 12 month(s) ago. Patient History: Menarche at age 9. First Full-Term at age 18. Right ovary removed at age 16. Hysterectomy at age 42. Postmenopausal. Patient has history of breast feeding. MG stereo VAD BX LT - 2 on the Left side. Maternal aunt had breast cancer at or over age 50. Risk Values: Sheron 5 year model risk: 2.0%. NCI Lifetime model risk: 6.1%. Prior Study Comparison: 11/12/2015 Bilateral Screening Mammogram, [facility]. 07/21/2018 Bilateral MG screening mammo w CAD - 2, [facility]. 08/18/2019 Bilateral MG screening mammo w CAD - 2, [facility]. 09/02/2021 Bilateral MG 3D screening mammo w/cad, [facility]. Tissue Density: There are scattered fibroglandular densities. Findings: Analyzed By CAD. There is no suspicious group of microcalcifications or new suspicious mass in either breast. Overall Assessment: Negative, BI-RAD 1 Management: Screening Mammogram of both breasts in 1 year. . Patient should continue monthly self-breast exams. A clinical breast exam by your physician is recommended on an annual basis. This exam should not preclude additional follow-up of suspicious palpable abnormalities. Note on Sheron scores and lifetime risk: 1. A Sheron score greater than 3% is considered moderate risk. If this is the case, consider specialist referral to assess eligibility for a risk reducing agent. 2. If overall lifetime risk for the development of breast cancer is 20% or higher, the patient may qualify for future screening with alternating mammogram and breast MRI. Electronically signed and approved by: Jonathan Avila M.D. Radiologis
== END | disposition home or self-care (01) ==
LOC: RADMAMWWP 12:28
PROVIDERS: ATTEND Internal Medicine
DX: Z12.31 Encounter for screening mammogram for malignant neoplasm of breast (principal); Z78.0 Asymptomatic menopausal state; Z80.3 Family history of malignant neoplasm of breast
CPT/HCPCS: 77063; 77067

== ENCOUNTER → 2023-08-06 | Outpatient (CLI) | payer MEDICARE ==
[2023-08-06 15:45] LABS: African American GFR (CKD) >90 (>60 ml/min/1.73 sqM); Blood Urea Nitrogen 15 mg/dL (7-17); Non-African American GFR(CKD) 89 (>60 ml/min/1.73 sqM)
--- NOTE | 2023-08-06 18:28 | CT ---
EXAMINATION TYPE: CT angio chest CT DLP: 909 mGycm, Automated exposure control for dose reduction was used. DATE OF EXAM: 08/06/2023 4:56 PM COMPARISON: CT 07/21/2022 most recent. CLINICAL INDICATION:Female, 68 years old with history of I71.20 THORACIC AORTIC ANEURYSM, WITHOUT RUP TURE,; f/u aneurysm TECHNIQUE/CONTRAST: CTA scan of the thorax is performed without and with IV Contrast, patient injected with 100 mL of Iso tomás 370, MIP images are created and reviewed these are created on a separate workstation.. FINDINGS: Lungs/Pleura: No evidence of focal consolidation, pleural effusion or pneumothorax. Interstitial lung markings are increased throughout the lungs inner similar to most recent prior. Stable scattered pul monary nodules including left upper lung partially calcified nodule measuring 5 mm. Image 42, posteri or aspect of the right upper lung along the pleura Airway: Large airways are patent. Heart: Heart is within normal limits for size. Severe coronary artery atherosclerosis. Mitral valve a nnular cusp patient's. Vasculature: Mild ectasia of ascending thoracic aorta up to 42 mm. The pulmonary trunk is dilated up to 39 mm. No evidence for intramural hematoma on noncontrast imaging. No evidence of intimal flap to suggest dissection. No aneurysm identified. Scattered atherosclerotic disease. Mediastinum: No gross evidence of adenopathy. Moderate hiatal hernia.e Musculoskeletal: No acute osseous abnormalities Soft Tissues/lymph nodes: Unremarkable. Lower neck: No significant findings. Upper Abdomen: Simple appearing right renal cyst. IMPRESSION: 1. Stable ectasia of the ascending thoracic aorta up to 42 mm. No evidence for dissection or occlusi on. 2. Moderate coronary artery atherosclerosis. 3. Stable pulmonary nodules. 4. Pulmonary hypertension. 5. Moderate hiatal hernia. 6. Interstitial lung markings which may be sequela prior atypical infection versus interstitial lung disease is not significantly changed.
== END | disposition home or self-care (01) ==
LOC: RADCTMAIN 14:57
PROVIDERS: ATTEND Thoracic Surgery (Cardiothoracic Vascular Surgery)
DX: I25.10 Atherosclerotic heart disease of native coronary artery without angina pectoris (principal); R91.8 Other nonspecific abnormal finding of lung field; I27.20 Pulmonary hypertension, unspecified; K44.9 Diaphragmatic hernia without obstruction or gangrene; I77.810 Thoracic aortic ectasia
CPT/HCPCS: 82565; 84520; 71275; 36415; Q9967

== ENCOUNTER 2024-05-12 07:22 | Inpatient (IN) | payer MEDICARE ==
[2024-05-12] MEDS: HYDROmorphone 0.5 MG/0.5 ML SYRINGE IVP STA (07:41)
[2024-05-12] MEDS: ONDANSETRON 4 MG/2 ML VIAL IVP STA (08:03)
--- NOTE | 2024-05-12 08:35 | ED ---
Back Pain HPI - General Chief Complaint: Back Pain/Injury Stated Complaint: Back pain Time Seen by Provider: 05/12/24 07:25 Source: patient, EMS Limitations: physical limitation - History of Present Illness Initial Comments: 68-year-old female presents emergency department reporting back pain. Patient has a history of chronic back pain. States that she awoke this morning with significant pain in the top of her buttocks which radiates into her right leg. States it spans the whole length of the right leg. She denies any saddle anesthesia. No bowel or bladder incontinence. Denies having any trauma. She did take a hydrocodone at home for her symptoms but this medication was . Typically states the pain is not this bad and she can manage at home. She denies any fevers. No history of cancer. Denies any weakness in the extremity. No additional symptoms to include chest pain or abdominal pain. No shortness of breath. No other alleviating, precipitating or modifying factors - Related Data Home Medications Medication Instructions Recorded Confirmed Aspirin EC [Ecotrin Low Dose] 81 mg PO DAILY 04/30/20 05/12/24 Cholecalciferol [Vitamin D3 (25 25 mcg PO DAILY 04/30/20 05/12/24 Mcg = 1000 Iu)] Cyanocobalamin (Vitamin B-12) 1,000 mcg PO DAILY 04/30/20 05/12/24 [Vitamin B-12] Furosemide [Lasix] 40 mg PO DAILY 04/30/20 05/12/24 Latanoprost [Xalatan 0.005%] 1 drop LEFT EYE HS 04/30/20 05/12/24 Levothyroxine Sodium [Euthyrox] 25 mcg PO DAILY 04/30/20 05/12/24 Leflunomide 20 mg PO DAILY 06/16/22 05/12/24 predniSONE 5 mg PO DAILY 06/16/22 05/12/24 Krill/Om-3/Dha/Epa/Phospho/Ast 1 cap PO DAILY 05/12/24 05/12/24 [Krill Oil 600 mg Softgel] Omeprazole [PriLOSEC] 40 mg PO DAILY 05/12/24 05/12/24 Pyridoxine HCl (Vitamin B6) 100 mg PO DAILY 05/12/24 05/12/24 [Vitamin B-6] Turmeric Root Extract [Turmeric] 500 mg PO DAILY 05/12/24 05/12/24 Allergies Allergy/AdvReac Type Severity Reaction Status Date / Time Penicillins Allergy Yeast Verified 05/12/24 08:58 infections hydromorphone [From Dilaudid] AdvReac Nausea & Verified 05/12/24 17:58 Vomiting morphine AdvReac Nausea & Verified 05/12/24 08:58 Vomiting nickel AdvReac Swelling Verified 05/12/24 08:58 Review of Systems ROS Statement: Those systems with pertinent positive or pertinent negative responses have been documented in the HPI. ROS Other: All systems not noted in ROS Statement are negative. 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 History of Any Multi-Drug Resistant Organisms: None Reported Past Surgical History: Hysterectomy, Joint Replacement Additional Past Surgical History / Comment(s): right eye removed , tumor removed from neck , rt knee replaced. cadaver bone to left leg Past Psychological History: Anxiety Smoking Status: Former smoker Past Alcohol Use History: None Reported Past Drug Use History: Marijuana - Past Family History Mother Additional Family Medical History / Comment(s): from pancreatic cancer General Exam Limitations: physical limitation General appearance: alert, in no apparent distress Head exam: Present: atraumatic, normocephalic, normal inspection Eye exam: Present: normal appearance, PERRL, EOMI. Absent: scleral icterus, conjunctival injection, periorbital swelling ENT exam: Present: normal exam, mucous membranes moist Neck exam: Present: normal inspection. Absent: tenderness, meningismus, lymphadenopathy Respiratory exam: Present: normal lung sounds bilaterally. Absent: respiratory distress, wheezes, rales, rhonchi, stridor Cardiovascular Exam: Present: regular rate, normal rhythm, normal heart sounds. Absent: systolic murmur, diastolic murmur, rubs, gallop, clicks GI/Abdominal exam: Present: soft, normal bowel sounds. Absent: distended, t enderness, guarding, rebound, rigid Extremities exam: Present: full ROM, normal capillary refill, other (positive straight leg raise on the right). Absent: tenderness, pedal edema, joint swelling, calf tenderness Back exam: Present: muscle spasm, paraspinal tenderness (lumbar region) Neurological exam: Present: alert, oriented X3, CN II-XII intact Psychiatric exam: Present: normal affect, normal mood Skin exam: Present: warm, dry, intact, normal color. Absent: rash Course Vital Signs 05/12/24 05/12/24 05/12/24 07:24 10:04 12:56 Temperature 98.0 F Pulse Rate 86 96 74 Pulse Rate [ Pulse Oximetery ] Respiratory 18 18 20 Rate Blood Pressure 154/104 155/120 143/98 Blood Pressure [Right Arm] O2 Sat by Pulse 92 L 97 94 L Oximetry 05/12/24 05/12/24 14:54 15:00 Temperature 98.8 F Pulse Rate 77 Pulse Rate [ 71 Pulse Oximetery ] Respiratory 18 16 Rate Blood Pressure 154/98 Blood Pressure 164/84 [Right Arm] O2 Sat by Pulse 95 95 Oximetry Medical Decision Making - Medical Decision Making Was pt. sent in by a medical professional or institution (, PA, MACHINE BUFFER, urgent care, hospital, or prison...) When possible be specific @ -No Did you speak to anyone other than the patient for history (EMS, parent, family, police, friend...)? What history was obtained from this source @ -Spoke with EMS for history Did you review nursing and triage notes (agree or disagree)? Why? @ -I reviewed and agree with nursing and triage notes Were old charts reviewed (outside hosp., previous admission, EMS record, old EKG, old radiological studies, urgent care reports/EKG's, prison records)? Report findings @ -I reviewed an MRI that the patient had performed on February 2022 Differential Diagnosis (chest pain, altered mental status, abdominal pain women, abdominal pain men, vaginal bleeding, weakness, fever, dyspnea, syncope, headache, dizziness, GI bleed, back pain, seizure, CVA, palpatations, mental health, musculoskeletal)? @ -Differential Back Pain: Strain, zoster, cauda equina syndrome, epidural abscess, vertebral osteomyelitis, discitis, fracture, subluxation, disc herniation, DJD, spinal stenosis, dissection, AAA, pancreatitis, peptic ulcer disease, pyelonephritis, kidney stone, this is not meant to be an all-inclusive list. EKG interpreted by me (3pts min.). @ -Not done X-rays interpreted by me (1pt min.). @ -None done CT interpreted by me (1pt min.). @ -Yes which demonstrates degeneration with herniated disks in the lumbar spine U/S interpreted by me (1pt. min.). @ -None done What testing was considered but not performed or refused? (CT, X-rays, U/S, labs)? Why? @ -None What meds were considered but not given or refused? Why? @ -Morphine considered however patient states she is allergic Did you discuss the management of the patient with other professionals (professionals i.e. DrAlivia, PA, MACHINE BUFFER, lab, RT, psych nurse, nephrology social worker, manager programming, teacher, sheriffs officer, patient case coordinator)? Give summary @ -Spoke with Dr. Glover as the patient has intractable pain with inability to ambulate Was smoking cessation discussed for >3mins.? @ -No Was critical care preformed (if so, how long)? @ -No Were there social determinants of health that impacted care today? How? (Homelessness, low income, unemployed, alcoholism, drug addiction, transportation, low edu. Level, literacy, decrease access to med. care, group home, rehab)? @ -No Was there de-escalation of care discussed even if they declined (Discuss DNR or withdrawal of care, Hospice)? DNR status @ -No What co-morbidities impacted this encounter? (DM, HTN, Smoking, COPD, CAD, Cancer, CVA, ARF, Chemo, Hep., AIDS, mental health diagnosis, sleep apnea, morbid obesity)? @ -Chronic back pain Was patient admitted / discharged? Hospital course, mention meds given and route, prescriptions, significant lab abnormalities, going to OR and other pertinent info. @ -Upon arrival patient seen and evaluated in bed 16. Thorough history and physical exam was performed. IV was established. Laboratory studies are conducted. Patient was provided with pain medications and muscle relaxer. She is reevaluated and cannot attempt to ambulate. I did follow this with a CT which demonstrates herniated disks in the lumbar spine. Patient given additional pain medications. She is reevaluated and I am still unable to ambulate the patient. Due to her intractable pain I did recommend admission. Spoke with Dr. Glover and I will place orthopedics on consult Undiagnosed new problem with uncertain prognosis? @ -No Drug Therapy requiring intensive monitoring for toxicity (Heparin, Nitro, Insulin, Cardizem)? @ -No Were any procedures done? @ -No Diagnosis/symptom? @ -Acute lumbar back pain, acute lumbar radiculopathy right, history of chronic back pain Acute, or Chronic, or Acute on Chronic? @ -Acute on chronic Uncomplicated (without systemic symptoms) or Complicated (systemic symptoms)? @ -Complicated Side effects of treatment? @ -Nausea and vomiting Exacerbation, Progression, or Severe Exacerbation? @ -No Poses a threat to life or bodily function? How? (Chest pain, [place], [place], pneumonia, PE, COPD, DKA, ARF, appy, cholecystitis, CVA, Diverticulitis, Homicidal, Suicidal, threat to staff... and all critical care pts) @ -No - Lab Data Result diagrams: 05/15/24 04:20 05/15/24 04:20 Lab Results 05/12/24 05/12/24 05/12/24 Range/Units 09:45 09:45 09:45 WBC 6.7 (3.8-10.6) k/uL RBC 4.34 (3.80-5.40) m/uL Hgb 11.8 (11.4-16.0) gm/dL Hct 37.9 (34.0-46.0) % MCV 87.3 (80.0-100.0) fL MCH 27.1 (25.0-35.0) pg MCHC 31.0 (31.0-37.0) g/dL RDW 15.8 H (11.5-15.5) % Plt Count 219 (150-450) k/uL MPV 8.0 Neutrophils % 72 % Lymphocytes % 16 % Monocytes % 9 % Eosinophils % 1 % Basophils % 0 % Neutrophils # 4.8 (1.3-7.7) k/uL Lymphocytes # 1.0 (1.0-4.8) k/uL Monocytes # 0.6 (0-1.0) k/uL Eosinophils # 0.1 (0-0.7) k/uL Basophils # 0.0 (0-0.2) k/uL Hypochromasia Moderate Sodium 142 (137-145) mmol/L Potassium 3.3 L (3.5-5.1) mmol/L Chloride 104 (98-107) mmol/L Carbon Dioxide 31 H (22-30) mmol/L Anion Gap 7 mmol/L BUN 13 (7-17) mg/dL Creatinine 0.61 (0.52-1.04) mg/dL Est GFR (CKD-EPI)AfAm >90 (>60 ml/min/1.73 sqM) Est GFR (CKD-EPI)NonAf >90 (>60 ml/min/1.73 sqM) Glucose 107 H (74-99) mg/dL Calcium 8.5 (8.4-10.2) mg/dL Total Bilirubin 0.6 (0.2-1.3) mg/dL AST 23 (14-36) U/L ALT 14 (4-34) U/L Alkaline Phosphatase 77 (38-126) U/L Total Protein 6.2 L (6.3-8.2) g/dL Albumin 3.2 L (3.5-5.0) g/dL Urine Color Yellow Urine Appearance Clear (Clear) Urine pH 6.5 (5.0-8.0) Ur Specific [place] 1.026 (1.001-1.035) Urine Protein Trace H (Negative) Urine Glucose (UA) Negative (Negative) Urine Ketones Negative (Negative) Urine Blood Negative (Negative) Urine Nitrite Negative (Negative) Urine Bilirubin Negative (Negative) Urine Urobilinogen <2.0 (<2.0) mg/dL Ur Leukocyte Esterase Negative (Negative) Disposition Clinical Impression: Back pain, Lumbar radiculopathy Disposition: ADMITTED IP TO THIS [facility] Condition: Stable Is patient prescribed a controlled substance at d/c from ED?: No Time of Disposition: 12:47 Decision to Admit Reason: Admit from EC Decision Date: 05/12/24 Decision Time: 12:47
[2024-05-12] MEDS: diphenhydrAMINE 50 MG/ML 1 ML VIAL IVP STA (10:01)
[2024-05-12] MEDS: METOCLOPRAMIDE 5 MG/ML 2 ML VIAL IVP STA (10:01)
[2024-05-12 10:04] LABS: Basophils % (A) 0 %; Eosinophils # (A) 0.1 k/uL (0-0.7); Eosinophils % (A) 1 %; HCT 37.9 % (34.0-46.0); HGB 11.8 gm/dL (11.4-16.0); Hypochromasia Moderate; Lymphocytes % (A) 16 %; MCH 27.1 pg (25.0-35.0); MCV 87.3 fL (80.0-100.0); Monocytes # (A) 0.6 k/uL (0-1.0); Monocytes % (A) 9 %; Neutrophils # (A) 4.8 k/uL (1.3-7.7); Neutrophils % (A) 72 %; Platelet Count 219 k/uL (150-450); RBC 4.34 m/uL (3.80-5.40); RDW 15.8 % (11.5-15.5); WBC 6.7 k/uL (3.8-10.6)
[2024-05-12 10:25] LABS: ALT 14 U/L (4-34); AST 23 U/L (14-36); African American GFR (CKD) >90 (>60 ml/min/1.73 sqM); Albumin 3.2 g/dL (3.5-5.0); Alkaline Phosphatase 77 U/L (38-126); Anion Gap 7 mmol/L; Blood Urea Nitrogen 13 mg/dL (7-17); Calcium 8.5 mg/dL (8.4-10.2); Carbon Dioxide 31 mmol/L (22-30); Chloride 104 mmol/L (98-107); Glucose 107 mg/dL (74-99); Non-African American GFR(CKD) >90 (>60 ml/min/1.73 sqM); Potassium 3.3 mmol/L (3.5-5.1); Sodium 142 mmol/L (137-145); Total Bilirubin 0.6 mg/dL (0.2-1.3); Total Protein 6.2 g/dL (6.3-8.2)
--- NOTE | 2024-05-12 10:46 | XR ---
EXAMINATION TYPE: XR chest 1V DATE OF EXAM: 05/12/2024 10:38 AM COMPARISON: Chest radiographs from 05/03/2020, CTA chest 08/06/2023 TECHNIQUE: XR chest 1V Frontal view of the chest. CLINICAL INDICATION:Female, 68 years old with history of Cough/pain; FINDINGS: Limited examination due to underpenetration. Lungs/Pleura: No pleural effusion or pneumothorax. Diffuse interstitial opacities. Heart/mediastinum: Cardiomediastinal silhouette is enlarged and stable. Musculoskeletal: No acute osseous pathology. Right shoulder arthropathy. IMPRESSION: Cardiomegaly with similar diffuse interstitial opacities. Correlate for CHF exacerbation versus atypi ayla infection versus interstitial lung disease. [facility], , 05/12/2024 10:44 AM
--- NOTE | 2024-05-12 10:56 | CT ---
EXAMINATION TYPE: CT lumbar spine wo con CT DLP: 829 mGycm, Automated exposure control for dose reduction was used. DATE OF EXAM: 05/12/2024 10:36 AM COMPARISON: MR lumbar spine 03/19/2022, lumbosacral spine radiograph 02/04/2022. CLINICAL INDICATION:Female, 68 years old with history of intractable pain; PHH, back pain, pain TECHNIQUE: Multiple axial images were obtained from the midportion of T11 through the sacroiliac juancarlos nts. Soft tissue and bone windows in coronal and sagittal planes were obtained and reviewed. Contrast used: none. Oral contrast used: none. FINDINGS: Alignment: There are 5 lumbar type vertebral bodies. Grade 2 anterolisthesis of L4 on L5 without evid ence of pars defects. Bone: No evidence of acute fracture is identified. Remote right posterior 11th rib fracture. Multile guerita anterior osteophytosis. Lower lumbar spine L4-L5 and L5-S1 endplate sclerosis. Discs: Multilevel vacuum disc disease at T12-L1, L1-L2, L4-L5 and L5-S1 T12-L1: No spinal canal or neural foraminal stenosis is identified. Schmorl's node involving superio r endplate of L1 vertebral body. L1-L2: Broad-based disc bulge with mild effacement of the anterior thecal sac. No neural foraminal st enosis. Schmorl's node involving the superior endplate of the L2 vertebral body. L2-L3: Broad-based disc bulge without significant effacement of the anterior thecal sac. No neural fo raminal stenosis. Schmorl's node involving the inferior endplate of the L2 vertebral body. L3-L4: Right based disc bulge with mild effacement of the anterior thecal sac. Ligament flavum buckli ng and bilateral facet arthropathy. No significant neural foraminal stenosis. L4-L5: Grade 2 anterolisthesis with uncovering of the disc. Similar broad-based disc bulge with ligam entum flavum buckling and bilateral facet arthropathy contributing to severe central canal stenosis. Moderate bilateral neuroforaminal stenosis. L5-S1: Central/left paracentral disc protrusion with mild to moderate effacement of the anterior thec al sac again with abutment of the exiting left L5 nerve root. Mild bilateral neuroforaminal stenosis. Other: Right renal 4.0 cm cyst. Atherosclerotic calcification of the aorta. IMPRESSION: 1. No evidence for acute spinal fracture. 2. Grossly similar multilevel degenerative disc disease and facet arthropathy from prior MR in 2021. There is continued severe central canal stenosis at L4-L5 secondary to grade 2 anterolisthesis with d isc bulge, ligamentum flavum buckling, and bilateral facet arthropathy. Similar L5-S1 disc protrusion with mild to moderate central canal stenosis and abutment of the exiting L5 nerve root. [facility], , 05/12/2024 10:53 AM
[2024-05-12] MEDS: KETOROLAC 15 MG/ML 1 ML VIAL IVP STA (12:46)
[2024-05-12] MEDS: DEXAMETHASONE SOD PHOSPHATE 10 MG/ML 1 ML VIAL IVP STA (12:48)
[2024-05-12] MEDS ORDERED: NALOXONE 0.4 MG/ML 1 ML VIAL IV PRN (12:51)
[2024-05-12 13:08] LABS: Color,Urine Yellow
[2024-05-12 13:09] LABS: Appearance,Urine Clear (Clear); Bilirubin,Urine Negative (Negative); Blood,Urine Negative (Negative); Glucose,Urine (UA) Negative (Negative); Ketones,Urine Negative (Negative); Leukocyte Esterase,Urine Negative (Negative); Nitrite,Urine Negative (Negative); PH, Urine 6.5 (5.0-8.0); Protein,Urine Trace (Negative); Specific Gravity,Urine 1.026 (1.001-1.035); Urobilinogen,Urine <2.0 mg/dL (<2.0)
[2024-05-12 14:33] LABS: Influenza A Not Detected (Not Detectd); Influenza B Not Detected (Not Detectd); RSV Not Detected (Not Detectd)
--- NOTE | 2024-05-12 14:33 | P.HPIM ---
History of Present Illness H&P Date: 05/12/24 Shelbie Mianya, is a 68-year-old female who presented to [facility] emergency room with a chief complaint of severe intractable back pain with inability to stand or walk. Patient stated that she has chronic back pain, however 2 days ago her pain was much more severe, this morning she woke up she tried to get out of bed but was not able to stand or walk, family members called EMS and patient was brought into emergency room. She was evaluated in the emergency room vital examination on presentation revealed a temperature of 98 pulse 86 respiration 18 blood pressure 154/104 pulse ox 92% on room air Laboratory data revealed a white blood count of 6.7 hemoglobin 11.8 platelet count 219 sodium 142 potassium 3.3 chloride 104 CO2 31 BUN 13 creatinine 0.61 Testing in the emergency room revealed CT scan of the lumbar spine revealed no evidence for acute spinal fracture however patient had severe central canal stenosis at L4-L5 secondary to grade 2 anterolisthesis with disc bulge and ligamentum flavum buckling with similar L5-S1 disc protrusion with moderate central canal stenosis. Patient was given IV Dilaudid in the emergency room which caused her to have episodes of vomiting. She was started on IV steroids and was admitted to medical floor for further evaluation and treatment. 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 History of Any Multi-Drug Resistant Organisms: None Reported Past Surgical History: Hysterectomy, Joint Replacement Additional Past Surgical History / Comment(s): right eye removed , tumor removed from neck , rt knee replaced. cadaver bone to left leg Past Psychological History: Anxiety Smoking Status: Former smoker Past Alcohol Use History: None Reported Past Drug Use History: Marijuana - Past Family History Mother Additional Family Medical History / Comment(s): from pancreatic cancer Medications and Allergies Home Medications Medication Instructions Recorded Confirmed Type Aspirin EC [Ecotrin Low Dose] 81 mg PO DAILY 04/30/20 05/12/24 History Cholecalciferol [Vitamin D3 (25 25 mcg PO DAILY 04/30/20 05/12/24 History Mcg = 1000 Iu)] Cyanocobalamin (Vitamin B-12) 1,000 mcg PO DAILY 04/30/20 05/12/24 History [Vitamin B-12] Furosemide [Lasix] 40 mg PO DAILY 04/30/20 05/12/24 History Latanoprost [Xalatan 0.005%] 1 drop LEFT EYE HS 04/30/20 05/12/24 History Levothyroxine Sodium [Euthyrox] 25 mcg PO DAILY 04/30/20 05/12/24 History Leflunomide 20 mg PO DAILY 06/16/22 05/12/24 History predniSONE 5 mg PO DAILY 06/16/22 05/12/24 History Krill/Om-3/Dha/Epa/Phospho/Ast 1 cap PO DAILY 05/12/24 05/12/24 History [Krill Oil 600 mg Softgel] Omeprazole [PriLOSEC] 40 mg PO DAILY 05/12/24 05/12/24 History Pyridoxine HCl (Vitamin B6) 100 mg PO DAILY 05/12/24 05/12/24 History [Vitamin B-6] Turmeric Root Extract [Turmeric] 500 mg PO DAILY 05/12/24 05/12/24 History Allergies Allergy/AdvReac Type Severity Reaction Status Date / Time Penicillins Allergy Yeast Verified 05/12/24 08:58 infections morphine AdvReac Nausea & Verified 05/12/24 08:58 Vomiting nickel AdvReac Swelling Verified 05/12/24 08:58 Physical Exam Vitals: Vital Signs Temp Pulse Resp BP Pulse Ox 05/12/24 12:56 74 20 143/98 94 L 05/12/24 10:04 96 18 155/120 97 05/12/24 07:24 98.0 F 86 18 154/104 92 L Intake and Output 05/11/24 05/12/24 05/12/24 22:59 06:59 14:59 Other: Weight 88.451 kg In general patient is alert and oriented x 3 in no distress HEENT head normocephalic and atraumatic Neck is supple no JVD no goiter no lymphadenopathy no carotid bruit Chest examination is clear to auscultation no crackles no wheezing Cardiac exam reveals regular heart sounds S1 and S2 no gallops no murmurs Abdomen is soft nontender no organomegaly with normal bowel sounds Extremity exam reveals no edema no cyanosis or clubbing Neurological examination reveals no gross focal deficits Results CBC & Chem 7: 02/21/25 09:45 05/12/24 09:45 Labs: Abnormal Lab Results - Last 24 Hours (Table) 05/12/24 05/12/24 05/12/24 Range/Units 09:45 09:45 09:45 RDW 15.8 H (11.5-15.5) % Potassium 3.3 L (3.5-5.1) mmol/L Carbon Dioxide 31 H (22-30) mmol/L Glucose 107 H (74-99) mg/dL Total Protein 6.2 L (6.3-8.2) g/dL Albumin 3.2 L (3.5-5.0) g/dL Urine Protein Trace H (Negative) Assessment and Plan Plan: Severe intractable back pain Severe physical debility with inability to stand or walk Hypokalemia on presentation Underlying history of hypothyroidism Underlying history of hypertension Underlying history of rheumatoid arthritis Underlying history of degenerative disc disease Underlying history of COPD Underlying history of gastroesophageal reflux disease At this time patient was seen and examined She was started on pain management and IV steroids in the emergency room Consultation for neurosurgery was initiated Home medications reviewed and reordered For DVT prophylaxis subcu Avani Will follow closely
[2024-05-12] MEDS ORDERED: Potassium Replacement Protocol 1 EACH MISC MISCELLANE PRN (14:34)
[2024-05-12] MEDS: HYDROcodone/APAP 5-325MG 1 EACH TAB PO PRN (16:04)
[2024-05-12] MEDS: POTASSIUM CHLORIDE ER 20 MEQ TAB.ER PO SCH (17:05)
[2024-05-12] MEDS: KETOROLAC 15 MG/ML 1 ML VIAL IVP PRN (17:05)
[2024-05-12] MEDS: LATANOPROST 0.005% OPHTH DROPS 2.5 ML BTL LEFT EYE SCH (22:42)
[2024-05-13] MEDS: LEVOTHYROXINE 25 MCG TAB PO SCH (08:56)
[2024-05-13] MEDS: ENOXAPARIN 40 MG/0.4 ML SYRINGE SQ SCH (08:56)
[2024-05-13] MEDS: CYANOCOBALAMIN 500 MCG TAB PO SCH (08:56)
[2024-05-13] MEDS: FUROSEMIDE 40 MG TAB PO SCH (08:56)
[2024-05-13] MEDS: ASPIRIN 81 MG PO SCH (08:56)
[2024-05-13] MEDS: PANTOPRAZOLE 40 MG TABLET PO SCH (08:56)
[2024-05-13] MEDS: CHOLECALCIFEROL 25 MCG (1000 IU) TABLET PO SCH (08:56)
[2024-05-13] MEDS: PYRIDOXINE 50 MG TAB PO SCH (08:56)
[2024-05-13] MEDS: predniSONE 5 MG TAB PO SCH (08:56)
[2024-05-13] MEDS: LEFLUNOMIDE 20 MG TAB PO SCH (08:59)
[2024-05-13] MEDS ORDERED: KRILL PO SCH (09:00)
[2024-05-13] MEDS ORDERED: PHOSPHO PO SCH (09:00)
[2024-05-13] MEDS ORDERED: AST PO SCH (09:00)
[2024-05-13] MEDS ORDERED: EPA PO SCH (09:00)
[2024-05-13] MEDS ORDERED: [UNRECOGNIZED DRUG - OTHER] PO SCH (09:00)
[2024-05-13] MEDS ORDERED: DHA PO SCH (09:00)
[2024-05-13 09:59] LABS: Basophils # (A) 0.03 X 10*3/uL (0.00-0.10); Basophils % (A) 0.4 %; Eosinophils # (A) 0 X 10*3/uL (0.04-0.35); Eosinophils % (A) 0 %; HCT 40.7 % (37.2-46.3); HGB 12.2 g/dL (12.0-15.0); Lymphocytes # (A) 1.08 X 10*3/uL (0.90-5.00); Lymphocytes % (A) 15.3 %; MCH 26.6 pg (27.0-32.0); MCV 88.7 FL (80.0-97.0); Mean Platelet Volume 11.3 FL (9.5-12.2); Monocytes # (A) 0.55 X 10*3/uL (0.20-1.00); Monocytes % (A) 7.8 %; NRBC Per 100 WBC 0 X 10*3/uL (0.00-0.01); Neutrophils # (A) 5.41 X 10*3/uL (1.80-7.70); Neutrophils % (A) 76.4 %; Platelet Count 271 X 10*3/uL (140-440); RBC 4.59 X 10*6/uL (4.10-5.20); RDW 16.3 % (11.5-14.5); WBC 7.08 X 10*3/uL (4.50-10.00)
[2024-05-13 10:09] LABS: ALT 14 U/L (8-44); AST 22 U/L (13-35); Albumin 3.5 g/dL (3.8-4.9); Albumin/Globulin Ratio 1.25 Ratio (1.60-3.17); Alkaline Phosphatase 73 U/L (41-126); BUN/Creat Ratio 22.67 Ratio (12.00-20.00); Blood Urea Nitrogen 13.6 mg/dL (9.0-27.0); Carbon Dioxide 26.8 mmol/L (21.6-31.8); Chloride 107 mmol/L (96-109); Globulin 2.8 g/dL (1.6-3.3); Glucose 98 mg/dL (70-110); Sodium 143 mmol/L (135-145); Total Bilirubin 0.3 mg/dL (0.3-1.2); Total Protein 6.3 g/dL (6.2-8.2)
--- NOTE | 2024-05-13 10:45 | P.PN ---
Subjective Progress Note Date: 05/13/24 Shelbie Minaya, is a 68-year-old female who presented to [facility] emergency room with a chief complaint of severe intractable back pain with inability to stand or walk. Patient stated that she has chronic back pain, however 2 days ago her pain was much more severe, this morning she woke up she tried to get out of bed but was not able to stand or walk, family members called EMS and patient was brought into emergency room. She was evaluated in the emergency room vital examination on presentation revealed a temperature of 98 pulse 86 respiration 18 blood pressure 154/104 pulse ox 92% on room air Laboratory data revealed a white blood count of 6.7 hemoglobin 11.8 platelet count 219 sodium 142 potassium 3.3 chloride 104 CO2 31 BUN 13 creatinine 0.61 Testing in the emergency room revealed CT scan of the lumbar spine revealed no evidence for acute spinal fracture however patient had severe central canal stenosis at L4-L5 secondary to grade 2 anterolisthesis with disc bulge and li gamentum flavum buckling with similar L5-S1 disc protrusion with moderate central canal stenosis. Patient was given IV Dilaudid in the emergency room which caused her to have episodes of vomiting. She was started on IV steroids and was admitted to medical floor for further evaluation and treatment. Neurosurgery consultation was requested On 05/13/2024 patient was seen and examined on the medical floor she is alert and oriented x 3 in no apparent distress she is still complaining of severe low back pain, she is still unable to stand up or walk, otherwise she denies any complaints there is no fever or chills no headache or dizziness no chest pain no shortness of breath no cough no nausea or vomiting no abdominal pain no diarrhea and no urinary symptoms. At this time patient is not getting relief from her pain, however she is reluctant to take more medication due to multiple allergies with recent episodes of nausea and vomiting. Patient is willing to try epidural injections, consultation for anesthesia was initiated. Objective - Vital Signs Vital signs: Vital Signs Temp 98.2 F 05/13/24 07:00 Pulse 83 05/13/24 07:00 Resp 17 05/13/24 07:00 BP 143/88 05/13/24 07:00 Pulse Ox 97 05/13/24 07:00 FiO2 Intake & Output 05/12/24 05/13/24 05/13/24 18:59 06:59 18:59 Intake Total 118 Output Total 70 Balance -70 118 Weight 88.451 kg Intake: Oral 118 Output: Urine 70 Other: Voiding Method External Catheter # Voids 0 - Exam In general patient is alert and oriented x 3 in no distress HEENT head normocephalic and atraumatic Neck is supple no JVD no goiter no lymphadenopathy no carotid bruit Chest examination is clear to auscultation no crackles no wheezing Cardiac exam reveals regular heart sounds S1 and S2 no gallops no murmurs Abdomen is soft nontender no organomegaly with normal bowel sounds Extremity exam reveals no edema no cyanosis or clubbing Neurological examination reveals no gross focal deficits - Labs CBC & Chem 7: 05/13/24 05:44 05/13/24 05:44 Labs: Abnormal Lab Results - Last 24 Hours (Table) 05/12/24 05/12/24 05/13/24 Range/Units 09:45 09:45 05:44 MCH (27.0-32.0) pg MCHC (32.0-37.0) g/dL RDW (11.5-14.5) % Eosinophils # (0.04-0.35) X 10*3/uL Potassium 3.3 L (3.5-5.1) mmol/L Carbon Dioxide 31 H (22-30) mmol/L BUN/Creatinine Ratio 22.67 H (12.00-20.00) Ratio Glucose 107 H (74-99) mg/dL Total Protein 6.2 L (6.3-8.2) g/dL Albumin 3.2 L 3.5 L (3.5-5.0) g/dL Albumin/Globulin Ratio 1.25 L (1.60-3.17) Ratio Urine Protein Trace H (Negative) 05/13/24 Range/Units 05:44 MCH 26.6 L (27.0-32.0) pg MCHC 30.0 L (32.0-37.0) g/dL RDW 16.3 H (11.5-14.5) % Eosinophils # 0 L (0.04-0.35) X 10*3/uL Potassium (3.5-5.1) mmol/L Carbon Dioxide (22-30) mmol/L BUN/Creatinine Ratio (12.00-20.00) Ratio Glucose (74-99) mg/dL Total Protein (6.3-8.2) g/dL Albumin (3.5-5.0) g/dL Albumin/Globulin Ratio (1.60-3.17) Ratio Urine Protein (Negative) Assessment and Plan Plan: Severe intractable back pain Severe physical debility with inability to stand or walk Hypokalemia on presentation Underlying history of hypothyroidism Underlying history of hypertension Underlying history of rheumatoid arthritis Underlying history of degenerative disc disease Underlying history of COPD Underlying history of gastroesophageal reflux disease At this time patient was seen and examined She was started on pain management and IV steroids in the emergency room Consultation for neurosurgery was initiated Home medications reviewed and reordered For DVT prophylaxis subcu Weslyx Will follow closely
--- NOTE | 2024-05-13 11:12 | P.CNOR ---
History of Present Illness - [facility] Consult date: 05/13/24 Consult reason: low back pain History of present illness: This is a 68-year-old female admitted with intractable low back pain. She has history of chronic low back pain along with multiple medical comorbidities. Patient does have history of rheumatoid and osteoarthritis. She currently takes 5 mg of prednisone daily. She states that over the last several days she began having more severe low back pain which has been radiating into her right groin and down the leg. She states the pain does travel all the way to her right ankle. She has been unable to ambulate secondary to the pain. She denies any recent bowel or bladder changes. She does suffer from constipation and occasional urinary retention. She admits to chronic numbness and tingling down both legs. There have been no changes in her neurologic symptoms. We are consulted for orthopedic spine evaluation. The patient did have a CT scan of the lumbar spine. Images were compared to plain x-ray and MRI from 2021. There are no obvious acute findings noted on the recent CT scan compared to the prior images. She has severe canal stenosis with multilevel degenerative disc disease and facet arthropathy. There is a grade 2 anterolisthesis at L4-5. The patient states that she did have an epidural steroid injection last year with minimal relief. 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 History of Any Multi-Drug Resistant Organisms: None Reported Past Surgical History: Hysterectomy, Joint Replacement Additional Past Surgical History / Comment(s): right eye removed , tumor removed from neck , rt knee replaced. cadaver bone to left leg Past Psychological History: Anxiety Smoking Status: Former smoker Past Alcohol Use History: None Reported Past Drug Use History: Marijuana - Past Family History Mother Additional Family Medical History / Comment(s): from pancreatic cancer Medications and Allergies Home Medications Medication Instructions Recorded Confirmed Type Aspirin EC [Ecotrin Low Dose] 81 mg PO DAILY 04/30/20 05/12/24 History Cholecalciferol [Vitamin D3 (25 25 mcg PO DAILY 04/30/20 05/12/24 History Mcg = 1000 Iu)] Cyanocobalamin (Vitamin B-12) 1,000 mcg PO DAILY 04/30/20 05/12/24 History [Vitamin B-12] Furosemide [Lasix] 40 mg PO DAILY 04/30/20 05/12/24 History Latanoprost [Xalatan 0.005%] 1 drop LEFT EYE HS 04/30/20 05/12/24 History Levothyroxine Sodium [Euthyrox] 25 mcg PO DAILY 04/30/20 05/12/24 History Leflunomide 20 mg PO DAILY 06/16/22 05/12/24 History predniSONE 5 mg PO DAILY 06/16/22 05/12/24 History Krill/Om-3/Dha/Epa/Phospho/Ast 1 cap PO DAILY 05/12/24 05/12/24 History [Krill Oil 600 mg Softgel] Omeprazole [PriLOSEC] 40 mg PO DAILY 05/12/24 05/12/24 History Pyridoxine HCl (Vitamin B6) 100 mg PO DAILY 05/12/24 05/12/24 History [Vitamin B-6] Turmeric Root Extract [Turmeric] 500 mg PO DAILY 05/12/24 05/12/24 History Allergies Allergy/AdvReac Type Severity Reaction Status Date / Time Penicillins Allergy Yeast Verified 05/12/24 08:58 infections hydromorphone [From Dilaudid] AdvReac Nausea & Verified 05/12/24 17:58 Vomiting morphine AdvReac Nausea & Verified 05/12/24 08:58 Vomiting nickel AdvReac Swelling Verified 05/12/24 08:58 Physical Examination Osteopathic Statement: *. No significant issues noted on an osteopathic structural exam other than those noted in the History and Physical/Consult. This is a pleasant 68-year-old female in no acute distress. She is alert and oriented x 3. Exam of the head and neck reveal no obvious deformity. She has fairly good cervical spine motion without difficulty or pain. She is nontender over the paraspinal musculature or spinous processes. Exam of the upper extremities is unremarkable. She has fairly good motion to t he upper extremities without difficulty or pain. Exam of the thoracic and lumbar spine reveal no obvious deformity. There are no surgical scars. There is no tenderness with palpation about the thoracic or lumbar spine. There is significant tenderness at the base of the lumbar spine and sacrum. Minimal paraspinal musculature tenderness. No tenderness to the buttock with palpation. Exam of the lower extremities reveals scars on both knees from total knee replacement. There are no open wounds or abrasions noted. The patient has difficulty with straight leg raise on the right independently. She is able to raise the left leg independently. Passive straight leg raise on the right is positive for pain. Mild pain with palpation about the right leg. Full foot and ankle motion without difficulty. She has 4/5 strength with dorsiflexion and plantarflexion against resistance. Pedal pulses +2/4 bilaterally. Capillary refill less than [address] scan of the lumbar spine reveals multilevel degenerative disc disease and facet arthropathy. There is canal stenosis noted. There is a grade 2 anterolisthesis at L4-5. - Labs Labs: Abnormal Lab Results - Last 24 Hours (Table) 05/12/24 05/13/24 05/13/24 Range/Units 09:45 05:44 05:44 MCH 26.6 L (27.0-32.0) pg MCHC 30.0 L (32.0-37.0) g/dL RDW 16.3 H (11.5-14.5) % Eosinophils # 0 L (0.04-0.35) X 10*3/uL BUN/Creatinine Ratio 22.67 H (12.00-20.00) Ratio Albumin 3.5 L (3.8-4.9) g/dL Albumin/Globulin Ratio 1.25 L (1.60-3.17) Ratio Urine Protein Trace H (Negative) H & H 05/12/24 05/13/24 Range/Units 09:45 05:44 Hgb 11.8 12.2 (11.4-16.0) gm/dL Hct 37.9 40.7 (34.0-46.0) % Result Diagrams: 05/13/24 05:44 05/13/24 05:44 Assessment and Plan (1) Spondylolisthesis at L4-L5 level Current Visit: Yes Status: Acute Code(s): M43.16 - SPONDYLOLISTHESIS, LUMBAR REGION SNOMED Code(s): 554874189278132 (2) Back pain Current Visit: Yes Status: Acute Code(s): M54.9 - DORSALGIA, UNSPECIFIED SNOMED Code(s): 016178262 (3) Lumbar radiculopathy Current Visit: Yes Status: Acute Code(s): M54.16 - RADICULOPATHY, LUMBAR REGION SNOMED Code(s): 196418717 Plan: The clinical and radiographic findings are discussed with the patient. Pain management has already been consulted to see her for evaluation. The patient would benefit from conservative management at this time. She would not be considered a good surgical candidate secondary to her multiple medical comorbidities. It is recommended we exhaust all conservative measures prior to considering surgical intervention. She may follow-up in our office after disch arge and pain management has been initiated. Recommend physical therapy while she is inpatient to assist with ambulation and some mobility exercises. Case and images are reviewed as above. Agree with consultation with pain management for possible interventional epidural injections. Patient would be a canadidate for surgical spinal intervention witn decompression and Fusion surgery if conservative measures were to fail over the next intermediate term. If she is having some improvement with pain mgmt injections, we can follow her up on out patient basis.
[2024-05-13 11:34] LABS: Appearance,Urine Clear (Clear); Bacteria,Urine Occasional /hpf; Bilirubin,Urine Negative (Negative); Blood,Urine Negative (Negative); Color,Urine Colorless; Glucose,Urine (UA) Negative (Negative); Ketones,Urine Negative (Negative); Leukocyte Esterase,Urine Small (Negative); Mucus,Urine Rare /hpf; Nitrite,Urine Positive (Negative); PH, Urine 5.5 (5.0-8.0); Protein,Urine Negative (Negative); RBC,Urine 1 /hpf (0-5); Specific Gravity,Urine 1.012 (1.001-1.035); Squamous Epithelial Cell,Urine <1 /hpf (0-4); Urobilinogen,Urine <2.0 mg/dL (<2.0); WBC,Urine 3 /hpf (0-5)
--- NOTE | 2024-05-14 11:59 | P.PN ---
Subjective Progress Note Date: 05/14/24 Shelbie Minaya, is a 68-year-old female who presented to [facility] emergency room with a chief complaint of severe intractable back pain with inability to stand or walk. Patient stated that she has chronic back pain, however 2 days ago her pain was much more severe, this morning she woke up she tried to get out of bed but was not able to stand or walk, family members called EMS and patient was brought into emergency room. She was evaluated in the emergency room vital examination on presentation revealed a temperature of 98 pulse 86 respiration 18 blood pressure 154/104 pulse ox 92% on room air Laboratory data revealed a white blood count of 6.7 hemoglobin 11.8 platelet count 219 sodium 142 potassium 3.3 chloride 104 CO2 31 BUN 13 creatinine 0.61 Testing in the emergency room revealed CT scan of the lumbar spine revealed no evidence for acute spinal fracture however patient had severe central canal stenosis at L4-L5 secondary to grade 2 anterolisthesis with disc bulge and li gamentum flavum buckling with similar L5-S1 disc protrusion with moderate central canal stenosis. Patient was given IV Dilaudid in the emergency room which caused her to have episodes of vomiting. She was started on IV steroids and was admitted to medical floor for further evaluation and treatment. Neurosurgery consultation was requested On 05/13/2024 patient was seen and examined on the medical floor she is alert and oriented x 3 in no apparent distress she is still complaining of severe low back pain, she is still unable to stand up or walk, otherwise she denies any complaints there is no fever or chills no headache or dizziness no chest pain no shortness of breath no cough no nausea or vomiting no abdominal pain no diarrhea and no urinary symptoms. At this time patient is not getting relief from her pain, however she is reluctant to take more medication due to multiple allergies with recent episodes of nausea and vomiting. Patient is willing to try epidural injections, consultation for anesthesia was initiated. On 05/14/2024 patient is alert and oriented x 3 patient still having significant back pain. Awaiting anesthesia input. Patient was evaluated by orthopedic services recommending conservative management at this time. Current vital signs temp 98.0, heart rate 88, respiratory rate 18, blood pressure 122/78 with a pulse ox of 98% on 2 L patient denies chest pain or shortness of breath. Patient denies nausea vomiting or diarrhea. Patient denies any urinary burning or frequency Objective - Vital Signs Vital signs: Vital Signs Temp 98.0 F 05/14/24 07:05 Pulse 88 05/14/24 07:05 Resp 18 05/14/24 07:05 BP 155/102 05/14/24 07:05 Pulse Ox 95 05/14/24 07:05 FiO2 Intake & Output 05/13/24 05/14/24 05/14/24 18:59 06:59 18:59 Intake Total 354 118 Output Total 600 240 Balance -246 -240 118 Intake: Oral 354 118 Output: Urine 600 240 Other: Voiding Method External Catheter External Catheter External Catheter - Exam In general patient is alert and oriented x 3 in no distress HEENT head normocephalic and atraumatic Neck is supple no JVD no goiter no lymphadenopathy no carotid bruit Chest examination is clear to auscultation no crackles no wheezing Cardiac exam reveals regular heart sounds S1 and S2 no gallops no murmurs Abdomen is soft nontender no organomegaly with normal bowel sounds Extremity exam reveals no edema no cyanosis or clubbing Neurological examination reveals no gross focal deficits - Labs CBC & Chem 7: 05/13/24 05:44 05/13/24 05:44 Assessment and Plan Plan: Severe intractable back pain Severe physical debility with inability to stand or walk Hypokalemia on presentation Underlying history of hypothyroidism Underlying history of hypertension Underlying history of rheumatoid arthritis Underlying history of degenerative disc disease Underlying history of COPD Underlying history of gastroesophageal reflux disease At this time patient was seen and examined She was started on pain management and IV steroids in the emergency room Consultation for neurosurgery was initiated Home medications reviewed and reordered For DVT prophylaxis subcu Avani Will follow closely
[2024-05-14] MEDS: BACITRACIN OINT 1 EACH PACKET TOPICAL SCH (16:24)
[2024-05-15 08:45] LABS: Basophils # (A) 0.04 X 10*3/uL (0.00-0.10); Basophils % (A) 0.6 %; Eosinophils # (A) 0.16 X 10*3/uL (0.04-0.35); Eosinophils % (A) 2.5 %; HCT 41.4 % (37.2-46.3); HGB 12.5 g/dL (12.0-15.0); Lymphocytes # (A) 1.63 X 10*3/uL (0.90-5.00); Lymphocytes % (A) 25.8 %; MCH 26.3 pg (27.0-32.0); MCHC 30.2 g/dL (32.0-37.0); MCV 87.2 FL (80.0-97.0); Mean Platelet Volume 11.1 FL (9.5-12.2); Monocytes # (A) 0.62 X 10*3/uL (0.20-1.00); Monocytes % (A) 9.8 %; NRBC Per 100 WBC 0 X 10*3/uL (0.00-0.01); Neutrophils # (A) 3.84 X 10*3/uL (1.80-7.70); Platelet Count 266 X 10*3/uL (140-440); RBC 4.75 X 10*6/uL (4.10-5.20); RDW 16.6 % (11.5-14.5); WBC 6.31 X 10*3/uL (4.50-10.00)
[2024-05-15 08:49] LABS: BUN/Creat Ratio 28.43 Ratio (12.00-20.00); Blood Urea Nitrogen 19.9 mg/dL (9.0-27.0); Carbon Dioxide 29.7 mmol/L (21.6-31.8); Chloride 103 mmol/L (96-109); Glucose 88 mg/dL (70-110); Sodium 142 mmol/L (135-145)
[2024-05-15 08:50] LABS: ALT 11 U/L (8-44); AST 18 U/L (13-35); Albumin 3.3 g/dL (3.8-4.9); Albumin/Globulin Ratio 1.27 Ratio (1.60-3.17); Alkaline Phosphatase 62 U/L (41-126); Calcium 8.8 mg/dL (8.7-10.3); Globulin 2.6 g/dL (1.6-3.3); Total Bilirubin 0.3 mg/dL (0.3-1.2); Total Protein 5.9 g/dL (6.2-8.2)
[2024-05-15] MEDS: ONDANSETRON 4 MG/2 ML VIAL IVP PRN (13:16)
--- NOTE | 2024-05-15 14:25 | P.PAINPG ---
Objective - Vital Signs Vital signs: Vital Signs Temp 97.7 F 05/15/24 12:27 Pulse 114 H 05/15/24 12:27 Resp 18 05/15/24 07:00 BP 116/76 05/15/24 12:27 Pulse Ox 91 L 05/15/24 12:27 FiO2 Intake & Output 05/14/24 05/15/24 05/15/24 18:59 06:59 18:59 Intake Total 118 180 Output Total 1200 700 Balance -1082 -700 180 Intake: Oral 118 180 Output: Urine 1200 700 Other: Voiding Method External Catheter Diaper Diaper External Catheter External Catheter # Bowel Movements 0 - Labs CBC & Chem 7: 05/15/24 04:20 05/15/24 04:20 Labs: Abnormal Lab Results - Last 24 Hours (Table) 05/15/24 05/15/24 Range/Units 04:20 04:20 MCH 26.3 L (27.0-32.0) pg MCHC 30.2 L (32.0-37.0) g/dL RDW 16.6 H (11.5-14.5) % BUN/Creatinine Ratio 28.43 H (12.00-20.00) Ratio Total Protein 5.9 L (6.2-8.2) g/dL Albumin 3.3 L (3.8-4.9) g/dL Albumin/Globulin Ratio 1.27 L (1.60-3.17) Ratio PQRS Measure Charge Sheet Comment: HISTORY OF PRESENT ILLNESS: A 68 yr old inpatient female as a referral from Dr Peña presents today w severe acute LBP secondary to radiculopathy, spondylosis and facet arthropathy without myelopathy for evaluation. Pt states pain level is provoked at 9 /10 in intensity, constant for the last 2 days, localized in the lower lumbar spine just above the tailbone, predominantly axial, sharp in character w occasional shooting pain towards the RLE. Pain is provoked by walking. She takes prednisone 5mg almost daily but it has been ineffective in treating this acute pain. Pain is alleviated by ESIs in the past, medications ([place] 5/325gm q4h prn, Toradol 15mg/mL q6h prn), repositioning and rest . PMH: OA, Angina, COPD, CVA, Fibromyalgia, GERD, Hypertension, RA, Hypothyro idism, Anxiety PSH: Hysterectomy, R Eye Surgery, R Knee Replacement, LLE Cadaver Bone Transplant SH: Former tobacco user, No ETOH use, Cannabis use FH: Mo- Pancreatic CA All: See list Meds: See list REVIEW OF ORGAN SYSTEMS: CONSTITUTIONAL: No fevers or chills. No recent weight loss. NEUROLOGICAL: + numbness and tingling along the distal extremities. No seizure disorders or headaches. MUSCULOSKELETAL: + pain PSYCHIATRIC: Denies current depression or suicidal thoughts. Physical Examinations : Constitutional : Cooperative , not in acute distress . Neurologic : Cranial nerve II to XII intact. No focal neurological deficits. Psychiatric : alert & oriented x 3. Matching mood & appropriate affect. Judgment & insight intact. Musculoskeletal : Cervical Spine Motor strength in the deltoid and biceps: Normal right side. Normal Left side Motor strength biceps and the wrist extensors: Normal right side . Normal left side Motor strength in the triceps muscle: Normal right side. Normal left side Deep tendon reflexes: Normal at the biceps. Normal at Brachioradialis. Normal at triceps Vertebral body tenderness to deep palpation over Cervical facet loading test: positive bilaterally Spurling test: positive bilaterally Neck distraction test: positive bilaterally Debora sign: positive bilaterally Lumbar spine Motor strength lower extremities ,thigh and legs 5/5 Right side , 5/5 Left side Deep tendon reflexes : Normal Knee Jerk. Normal Ankle Jerk Vertebral body tenderness over L5 Yoder Test positive BL L5-S1 Lumbar facet Loading Test: positive Right / positive Left Range of motion of the lumbar spine Flexion 30 degrees, extension 10 degrees Straight Leg Raise test: Lef < Right positive at 30 degrees Tim test: positive right / positive left. Severe tenderness over the Sacroiliac joint on the Right / Left sides Gaenslen test: positive bilaterally Seated flexion test: positive bilaterally. Sacral spine : Severe tenderness over the Sacroiliac joint: right side / left side Range of motion: Flexion of the lumbar spine <60 degrees Range of motion: Extension of the lumbar spine <20 degrees Gaenslen's Test positive Tim test: positive right side / left side Thigh Thrust Test Sacral Thrust Test Imaging: CT non contrast of the lumbar spine from 05/14/24 reviewed Assessment/ Plan : L4-L5 anterolisthesis, L4-S1 spondylosis Recommendation of MEJIA L5-S1 #1. Risks, benefits of procedure discussed and patient verbalized understanding. Admits to anti- coagulant use or medical history of diabetes. Nurse notified of discontinuation of blood thinners. Protocol for discontinuation/ continuation of medications tita procedure discussed. All questions answered. I have spent greater than 30 minutes on patient care today. Dr Pires was available by phone for the evaluation of this patient. The time was used to review the medical records including relevant urine studies and Prescription history (MAPs), review of the available imaging, evaluation and examination of the patient, coordination of care with the medical staff and if applicable referring physicians, as well as creation of the medical record - Pain Location Lower Back Non-Pharmacological Interventions: Ice, Inactivity Pharmacological Interventions: PRN Medication Pain Comment: See MAR PQRS Narrative: Smoking Status Current every day smoker Blood Pressure [Left Arm] 116/76 Blood Pressure [Right Arm] 137/77 Blood Pressure 154/98 Pain Intensity [Lower Back] 10 Pain Intensity 5 Pain Scale Used Numeric (1 - 10) Scale Used Numeric (1 - 10) Hx Alcohol Use (MH) No Home Medications: Ambulatory Orders Aspirin EC [Ecotrin Low Dose] 81 mg PO DAILY 04/30/20 Cholecalciferol [Vitamin D3 (25 Mcg = 1000 Iu)] 25 mcg PO DAILY 04/30/20 Cyanocobalamin (Vitamin B-12) [Vitamin B-12] 1,000 mcg PO DAILY 04/30/20 Furosemide [Lasix] 40 mg PO DAILY 04/30/20 Latanoprost [Xalatan 0.005%] 1 drop LEFT EYE HS 04/30/20 Levothyroxine Sodium [Euthyrox] 25 mcg PO DAILY 04/30/20 Leflunomide 20 mg PO DAILY 06/16/22 predniSONE 5 mg PO DAILY 06/16/22 Krill/Om-3/Dha/Epa/Phospho/Ast [Krill Oil 600 mg Softgel] 1 cap PO DAILY Omeprazole [PriLOSEC] 40 mg PO DAILY 05/12/24 Pyridoxine HCl (Vitamin B6) [Vitamin B-6] 100 mg PO DAILY 05/12/24 Turmeric Root Extract [Turmeric] 500 mg PO DAILY 05/12/24 Controlled Substance Measures - Controlled Substance Measures Is patient prescribed a controlled substance at discharge?: No
--- NOTE | 2024-05-16 06:48 | P.PN ---
Subjective Progress Note Date: 05/15/24 Shelbie Minaya, is a 68-year-old female who presented to [facility] emergency room with a chief complaint of severe intractable back pain with inability to stand or walk. Patient stated that she has chronic back pain, however 2 days ago her pain was much more severe, this morning she woke up she tried to get out of bed but was not able to stand or walk, family members called EMS and patient was brought into emergency room. She was evaluated in the emergency room vital examination on presentation revealed a temperature of 98 pulse 86 respiration 18 blood pressure 154/104 pulse ox 92% on room air Laboratory data revealed a white blood count of 6.7 hemoglobin 11.8 platelet count 219 sodium 142 potassium 3.3 chloride 104 CO2 31 BUN 13 creatinine 0.61 Testing in the emergency room revealed CT scan of the lumbar spine revealed no evidence for acute spinal fracture however patient had severe central canal stenosis at L4-L5 secondary to grade 2 anterolisthesis with disc bulge and li gamentum flavum buckling with similar L5-S1 disc protrusion with moderate central canal stenosis. Patient was given IV Dilaudid in the emergency room which caused her to have episodes of vomiting. She was started on IV steroids and was admitted to medical floor for further evaluation and treatment. Neurosurgery consultation was requested On 05/13/2024 patient was seen and examined on the medical floor she is alert and oriented x 3 in no apparent distress she is still complaining of severe low back pain, she is still unable to stand up or walk, otherwise she denies any complaints there is no fever or chills no headache or dizziness no chest pain no shortness of breath no cough no nausea or vomiting no abdominal pain no diarrhea and no urinary symptoms. At this time patient is not getting relief from her pain, however she is reluctant to take more medication due to multiple allergies with recent episodes of nausea and vomiting. Patient is willing to try epidural injections, consultation for anesthesia was initiated. On 05/14/2024 patient is alert and oriented x 3 patient still having significant back pain. Awaiting anesthesia input. Patient was evaluated by orthopedic services recommending conservative management at this time. Current vital signs temp 98.0, heart rate 88, respiratory rate 18, blood pressure 122/78 with a pulse ox of 98% on 2 L patient denies chest pain or shortness of breath. Patient denies nausea vomiting or diarrhea. Patient denies any urinary burning or frequency On 05/15/2024 patient was seen and examined on the medical floor she is alert and oriented x 3 in no apparent distress she is still complaining of severe low back pain, she is still unable to stand up or walk, otherwise she denies any complaints there is no fever or chills no headache or dizziness no chest pain no shortness of breath no cough no nausea or vomiting no abdominal pain no diarrhea and no urinary symptoms. Input from anesthesia reviewed at this time will discontinue aspirin and Lovenox will use SCD stockings for DVT prophylaxis. Objective - Vital Signs Vital signs: Vital Signs Temp 98.4 F 05/15/24 15:00 Pulse 102 H 05/15/24 15:00 Resp 18 05/15/24 15:00 BP 109/75 05/15/24 15:00 Pulse Ox 91 L 05/15/24 15:00 FiO2 Intake & Output 05/14/24 05/15/24 05/15/24 18:59 06:59 18:59 Intake Total 118 180 Output Total 1200 700 300 Balance -1082 -700 -120 Intake: Oral 118 180 Output: Urine 1200 700 300 Other: Voiding Method External Catheter Diaper Diaper External Catheter External Catheter # Voids 1 # Bowel Movements 0 - Exam In general patient is alert and oriented x 3 in no distress HEENT head normocephalic and atraumatic Neck is supple no JVD no goiter no lymphadenopathy no carotid bruit Chest examination is clear to auscultation no crackles no wheezing Cardiac exam reveals regular heart sounds S1 and S2 no gallops no murmurs Abdomen is soft nontender no organomegaly with normal bowel sounds Extremity exam reveals no edema no cyanosis or clubbing Neurological examination reveals no gross focal deficits - Labs CBC & Chem 7: 05/15/24 04:20 05/15/24 04:20 Labs: Abnormal Lab Results - Last 24 Hours (Table) 05/15/24 05/15/24 Range/Units 04:20 04:20 MCH 26.3 L (27.0-32.0) pg MCHC 30.2 L (32.0-37.0) g/dL RDW 16.6 H (11.5-14.5) % BUN/Creatinine Ratio 28.43 H (12.00-20.00) Ratio Total Protein 5.9 L (6.2-8.2) g/dL Albumin 3.3 L (3.8-4.9) g/dL Albumin/Globulin Ratio 1.27 L (1.60-3.17) Ratio Assessment and Plan Plan: Severe intractable back pain Severe physical debility with inability to stand or walk Hypokalemia on presentation Underlying history of hypothyroidism Underlying history of hypertension Underlying history of rheumatoid arthritis Underlying history of degenerative disc disease Underlying history of COPD Underlying history of gastroesophageal reflux disease At this time patient was seen and examined She was started on pain management and IV steroids in the emergency room Consultation for neurosurgery was initiated Home medications reviewed and reordered For DVT prophylaxis subcu Avani Will follow closely
[2024-05-16 09:32] LABS: Basophils % (A) 1 %; Eosinophils # (A) 0.1 k/uL (0-0.7); Eosinophils % (A) 2 %; HCT 43.1 % (34.0-46.0); HGB 12.8 gm/dL (11.4-16.0); Hypochromasia Moderate; Lymphocytes # (A) 0.9 k/uL (1.0-4.8); Lymphocytes % (A) 16 %; MCH 26.1 pg (25.0-35.0); MCHC 29.8 g/dL (31.0-37.0); MCV 87.7 fL (80.0-100.0); Monocytes # (A) 0.6 k/uL (0-1.0); Monocytes % (A) 11 %; Neutrophils # (A) 3.7 k/uL (1.3-7.7); Neutrophils % (A) 67 %; Platelet Count 273 k/uL (150-450); RBC 4.92 m/uL (3.80-5.40); RDW 15.9 % (11.5-15.5); WBC 5.5 k/uL (3.8-10.6)
--- NOTE | 2024-05-16 14:44 | P.PN ---
Subjective Progress Note Date: 05/16/24 Shelbie Minaya, is a 68-year-old female who presented to [facility] emergency room with a chief complaint of severe intractable back pain with inability to stand or walk. Patient stated that she has chronic back pain, however 2 days ago her pain was much more severe, this morning she woke up she tried to get out of bed but was not able to stand or walk, family members called EMS and patient was brought into emergency room. She was evaluated in the emergency room vital examination on presentation revealed a temperature of 98 pulse 86 respiration 18 blood pressure 154/104 pulse ox 92% on room air Laboratory data revealed a white blood count of 6.7 hemoglobin 11.8 platelet count 219 sodium 142 potassium 3.3 chloride 104 CO2 31 BUN 13 creatinine 0.61 Testing in the emergency room revealed CT scan of the lumbar spine revealed no evidence for acute spinal fracture however patient had severe central canal stenosis at L4-L5 secondary to grade 2 anterolisthesis with disc bulge and li gamentum flavum buckling with similar L5-S1 disc protrusion with moderate central canal stenosis. Patient was given IV Dilaudid in the emergency room which caused her to have episodes of vomiting. She was started on IV steroids and was admitted to medical floor for further evaluation and treatment. Neurosurgery consultation was requested On 05/13/2024 patient was seen and examined on the medical floor she is alert and oriented x 3 in no apparent distress she is still complaining of severe low back pain, she is still unable to stand up or walk, otherwise she denies any complaints there is no fever or chills no headache or dizziness no chest pain no shortness of breath no cough no nausea or vomiting no abdominal pain no diarrhea and no urinary symptoms. At this time patient is not getting relief from her pain, however she is reluctant to take more medication due to multiple allergies with recent episodes of nausea and vomiting. Patient is willing to try epidural injections, consultation for anesthesia was initiated. On 05/14/2024 patient is alert and oriented x 3 patient still having significant back pain. Awaiting anesthesia input. Patient was evaluated by orthopedic services recommending conservative management at this time. Current vital signs temp 98.0, heart rate 88, respiratory rate 18, blood pressure 122/78 with a pulse ox of 98% on 2 L patient denies chest pain or shortness of breath. Patient denies nausea vomiting or diarrhea. Patient denies any urinary burning or frequency On 05/15/2024 patient was seen and examined on the medical floor she is alert and oriented x 3 in no apparent distress she is still complaining of severe low back pain, she is still unable to stand up or walk, otherwise she denies any complaints there is no fever or chills no headache or dizziness no chest pain no shortness of breath no cough no nausea or vomiting no abdominal pain no diarrhea and no urinary symptoms. Input from anesthesia reviewed at this time will discontinue aspirin and Lovenox will use SCD stockings for DVT prophylaxis. on 05/16/2024 patient is alert and oriented x 3. patient is still complaining about significant pain and difficulty with ambulation. pt/ot services consulted. patient denies chest pain or shortness of breath. denies nausea vomiting or d iarrhea. denies any urinary burning or frequency Objective - Vital Signs Vital signs: Vital Signs Temp 98.3 F 05/16/24 07:00 Pulse 87 05/16/24 07:00 Resp 17 05/16/24 07:00 BP 106/70 05/16/24 07:00 Pulse Ox 93 L 05/16/24 07:00 FiO2 Intake & Output 05/15/24 05/16/24 05/16/24 18:59 06:59 18:59 Intake Total 180 Output Total 600 400 950 Balance -420 -400 -950 Intake: Oral 180 Output: Urine 600 400 950 Other: Voiding Method Diaper Diaper Diaper External Catheter External Catheter External Catheter # Voids 1 # Bowel Movements 0 - Exam In general patient is alert and oriented x 3 in no distress HEENT head normocephalic and atraumatic Neck is supple no JVD no goiter no lymphadenopathy no carotid bruit Chest examination is clear to auscultation no crackles no wheezing Cardiac exam reveals regular heart sounds S1 and S2 no gallops no murmurs Abdomen is soft nontender no organomegaly with normal bowel sounds Extremity exam reveals no edema no cyanosis or clubbing Neurological examination reveals no gross focal deficits - Labs CBC & Chem 7: 05/16/24 09:08 05/15/24 04:20 Labs: Abnormal Lab Results - Last 24 Hours (Table) 05/16/24 Range/Units 09:08 MCHC 29.8 L (31.0-37.0) g/dL RDW 15.9 H (11.5-15.5) % Lymphocytes # 0.9 L (1.0-4.8) k/uL Assessment and Plan Assessment: Severe intractable back pain Severe physical debility with inability to stand or walk Hypokalemia on presentation Underlying history of hypothyroidism Underlying history of hypertension Underlying history of rheumatoid arthritis Underlying history of degenerative disc disease Underlying history of COPD Underlying history of gastroesophageal reflux disease At this time patient was seen and examined She was started on pain management and IV steroids in the emergency room Consultation for neurosurgery was initiated Home medications reviewed and reordered For DVT prophylaxis subcu Avani Will follow closely
[2024-05-16 15:31] LABS: ALT 16 U/L (8-44); AST 26 U/L (13-35); Albumin 3.4 g/dL (3.8-4.9); Albumin/Globulin Ratio 1.36 Ratio (1.60-3.17); Alkaline Phosphatase 65 U/L (41-126); Carbon Dioxide 27.4 mmol/L (21.6-31.8); Chloride 101 mmol/L (96-109); Globulin 2.5 g/dL (1.6-3.3); Glucose 143 mg/dL (70-110); Sodium 141 mmol/L (135-145); Total Bilirubin 0.3 mg/dL (0.3-1.2); Total Protein 5.9 g/dL (6.2-8.2)
[2024-05-17 08:34] LABS: Basophils # (A) 0.05 X 10*3/uL (0.00-0.10); Basophils % (A) 0.8 %; Eosinophils # (A) 0.14 X 10*3/uL (0.04-0.35); Eosinophils % (A) 2.1 %; HCT 42.5 % (37.2-46.3); Lymphocytes % (A) 18.2 %; MCH 26.7 pg (27.0-32.0); MCHC 30.6 g/dL (32.0-37.0); MCV 87.3 FL (80.0-97.0); Mean Platelet Volume 11.3 FL (9.5-12.2); Monocytes # (A) 0.81 X 10*3/uL (0.20-1.00); Monocytes % (A) 12.3 %; NRBC Per 100 WBC 0 X 10*3/uL (0.00-0.01); Neutrophils # (A) 4.39 X 10*3/uL (1.80-7.70); Neutrophils % (A) 66.3 %; Platelet Count 262 X 10*3/uL (140-440); RBC 4.87 X 10*6/uL (4.10-5.20); RDW 16.6 % (11.5-14.5); WBC 6.61 X 10*3/uL (4.50-10.00)
[2024-05-17 09:13] LABS: ALT 22 U/L (8-44); AST 29 U/L (13-35); Albumin 3.5 g/dL (3.8-4.9); Albumin/Globulin Ratio 1.25 Ratio (1.60-3.17); Alkaline Phosphatase 68 U/L (41-126); BUN/Creat Ratio 25.57 Ratio (12.00-20.00); Blood Urea Nitrogen 17.9 mg/dL (9.0-27.0); Calcium 9.1 mg/dL (8.7-10.3); Carbon Dioxide 29.5 mmol/L (21.6-31.8); Chloride 100 mmol/L (96-109); Globulin 2.8 g/dL (1.6-3.3); Glucose 97 mg/dL (70-110); Potassium 3.9 mmol/L (3.5-5.5); Sodium 141 mmol/L (135-145); Total Bilirubin 0.3 mg/dL (0.3-1.2); Total Protein 6.3 g/dL (6.2-8.2)
--- NOTE | 2024-05-17 10:43 | P.CRDCN ---
History of Present Illness History of present illness: HISTORY OF PRESENT ILLNESS: This is a 68-year-old female with a past medical history significant for hypothyroidism, COPD, rheumatoid arthritis, and degenerative disc disease. Patient used to follow in the office with Dr Womack but has not been seen since 2020. We have been asked to see the patient in consultation for sinus tachycardia. Patient examined at the bedside. Patient presented to the hospital due to severe back pain. Patient has been evaluated by orthopedics and also by anesthesia pain management. According to the patient's nurse, anesthesia is planning for epidural injection on Wednesday. Her aspirin has been discontinued. The patient denies any chest pain or pressure. She denies any shortness of breath. She denies any palpitations. She continues to report significant back pain this morning. DIAGNOSTICS: - EKG reveals sinus tachycardia with no signs of acute ischemia. Left axis deviation. - Chest xray cardiomegaly with similar diffuse interstitial opacities. Correlate for CHF exacerbation versus atypical infection versus interstitial lung disease.. - Laboratory data: WBC 6.61. Hemoglobin 13.0. Platelet count 262. Sodium 140. Potassium 3.9. BUN 17.9. Creatinine 0.7. proBNP 597. - Current home cardiac medications include Lasix 40 mg daily and aspirin 81 mg daily - Most recent echocardiogram obtained in 04/2020 revealing mild concentric LVH, EF 55 to 60%, mild MR, mild TR - Cardiac catheterization history: 04/2020 revealing no obstructive coronary artery disease REVIEW OF SYSTEMS: At the time of my exam: CONSTITUTIONAL: Denies fever or chills. HEENT: Denies blurred vision, vision changes, or eye pain. Denies hemoptysis CARDIOVASCULAR: Denies chest pain. Denies orthopnea. Denies PND. Denies palpitations RESPIRATORY: Denies shortness of breath. GASTROINTESTINAL: Denies abdominal pain. Denies nausea or vomiting. HEMATOLOGIC: Denies bleeding disorders. GENITOURINARY: Denies any blood in urine. SKIN: Denies pruitis. Denies rash. PHYSICAL EXAM: VITAL SIGNS: Reviewed. GENERAL: Well-developed in no acute distress. HEENT: Head is normocephalic. Pupils are equal, round. Sclerae anicteric. Mucous membranes of the mouth are moist. Neck supple. No JVD or thyromegaly LUNGS: Respirations even and unlabored. Lungs essentially clear to auscultation bilaterally. HEART: Regular rate and rhythm. S1 and S2 heard. ABDOMEN: Soft. Nondistended. Nontender. EXTREMITIES: Normal range of motion. No clubbing or cyanosis. Peripheral pulses intact. No lower extremity edema NEUROLOGIC: Awake and alert. Oriented x 3. ASSESSMENT: Intractable back pain L4-L5 anterolisthesis, L4-S1 spondylosis; scheduled for epidural injection on Wednesday with anesthesia Sinus tachycardia, physiological, secondary to acute back pain No obstructive coronary artery disease, per cath 04/2020 No evidence of congestive heart failure, BNP 597, euvolemic upon examination History of COPD History of hypothyroidism History of rheumatoid arthritis History of degenerative disc disease PLAN: Obtain 2D echo to assess cardiac structure and function Aspirin remains on hold secondary to epidural injection planned for Wednesday per nursing Patient sinus tachycardia is physiological secondary to her intractable back pain. No indication to add beta-blockers at this time Patient is currently stable from a cardiac perspective If 2D echo does not reveal any significant abnormalities, there are no further inpatient recommendations from a cardiac standpoint Nurse practitioner note has been reviewed by physician. Signing provider agrees with the documented findings, assessment, and plan of care documented by FEATHER SHAPER as a scribe. 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 History of Any Multi-Drug Resistant Organisms: None Reported Past Surgical History: Hysterectomy, Joint Replacement Additional Past Surgical History / Comment(s): right eye removed , tumor removed from neck , rt knee replaced. cadaver bone to left leg Past Psychological History: Anxiety Smoking Status: Former smoker Past Alcohol Use History: None Reported Past Drug Use History: Marijuana - Past Family History Mother Additional Family Medical History / Comment(s): from pancreatic cancer Medications and Allergies Home Medications Medication Instructions Recorded Confirmed Type Aspirin EC [Ecotrin Low Dose] 81 mg PO DAILY 04/30/20 05/12/24 History Cholecalciferol [Vitamin D3 (25 25 mcg PO DAILY 04/30/20 05/12/24 History Mcg = 1000 Iu)] Cyanocobalamin (Vitamin B-12) 1,000 mcg PO DAILY 04/30/20 05/12/24 History [Vitamin B-12] Furosemide [Lasix] 40 mg PO DAILY 04/30/20 05/12/24 History Latanoprost [Xalatan 0.005%] 1 drop LEFT EYE HS 04/30/20 05/12/24 History Levothyroxine Sodium [Euthyrox] 25 mcg PO DAILY 04/30/20 05/12/24 History Leflunomide 20 mg PO DAILY 06/16/22 05/12/24 History predniSONE 5 mg PO DAILY 06/16/22 05/12/24 History Krill/Om-3/Dha/Epa/Phospho/Ast 1 cap PO DAILY 05/12/24 05/12/24 History [Krill Oil 600 mg Softgel] Omeprazole [PriLOSEC] 40 mg PO DAILY 05/12/24 05/12/24 History Pyridoxine HCl (Vitamin B6) 100 mg PO DAILY 05/12/24 05/12/24 History [Vitamin B-6] Turmeric Root Extract [Turmeric] 500 mg PO DAILY 05/12/24 05/12/24 History Allergies Allergy/AdvReac Type Severity Reaction Status Date / Time Penicillins Allergy Yeast Verified 05/12/24 08:58 infections hydromorphone [From Dilaudid] AdvReac Nausea & Verified 05/12/24 17:58 Vomiting morphine AdvReac Nausea & Verified 05/12/24 08:58 Vomiting nickel AdvReac Swelling Verified 05/12/24 08:58 Physical Exam Vitals: Vital Signs Temp Pulse Resp BP BP Pulse Ox 05/17/24 07:26 98.1 F 97 16 94/58 92 L 05/17/24 02:36 98.4 F 99 20 128/71 93 L 05/16/24 19:41 98.5 F 99 19 120/83 94 L 05/16/24 15:00 97.7 F 138 H 17 115/76 94 L Intake and Output 05/16/24 05/17/24 05/17/24 22:59 06:59 14:59 Other: Voiding Method Bedside Commode Bedside Commode Bedside Commode # Voids 1 1 Results 05/17/24 05:28 05/17/24 05:28 Cardiac Enzymes 05/16/24 05/17/24 Range/Units 09:08 05:28 AST 26 29 (13-35) U/L CBC 05/17/24 Range/Units 05:28 WBC 6.61 (4.50-10.00) X 10*3/uL RBC 4.87 (4.10-5.20) X 10*6/uL Hgb 13.0 (12.0-15.0) g/dL Hct 42.5 (37.2-46.3) % Plt Count 262 (140-440) X 10*3/uL Comprehensive Metabolic Panel 05/16/24 05/17/24 Range/Units 09:08 05:28 Sodium 141 141 (135-145) mmol/L Potassium 4.0 3.9 (3.5-5.5) mmol/L Chloride 101 100 (96-109) mmol/L Carbon Dioxide 27.4 29.5 (21.6-31.8) mmol/L BUN 18.0 17.9 (9.0-27.0) mg/dL Creatinine 0.8 0.7 (0.6-1.5) mg/dL Glucose 143 H 97 (70-110) mg/dL Calcium 9.0 9.1 (8.7-10.3) mg/dL AST 26 29 (13-35) U/L ALT 16 22 (8-44) U/L Alkaline Phosphatase 65 68 (41-126) U/L Total Protein 5.9 L 6.3 (6.2-8.2) g/dL Albumin 3.4 L 3.5 L (3.8-4.9) g/dL Current Medications Generic Name Dose Route Start Last Admin Trade Name Freq PRN Reason Stop Dose Admin Hydrocodone Bitart/Acetaminophen 1 each 05/12/24 14:36 05/17/24 10:08 Hydrocodone/Apap 5-325mg 1 Each Tab PO 1 each Q4HR PRN Administration Pain Bacitracin 1 each 05/14/24 16:00 05/17/24 08:34 Bacitracin Oint 1 Each Packet TOPICAL 1 each TID KELI Administration Protocol Cholecalciferol 25 mcg 05/13/24 09:00 05/17/24 08:35 Cholecalciferol 25 Mcg (1000 Iu) Tablet PO 25 mcg DAILY KELI Administration Cyanocobalamin 1,000 mcg 05/13/24 09:00 05/17/24 08:34 Cyanocobalamin 500 Mcg Tab PO 1,000 mcg DAILY KELI Administration Furosemide 40 mg 05/13/24 09:00 05/17/24 08:35 Furosemide 40 Mg Tab PO 40 mg DAILY KELI Administration Latanoprost 1 drops 05/12/24 21:00 05/16/24 20:06 Latanoprost 0.005% Ophth Drops 2.5 Ml Btl LEFT EYE 1 drops HS KELI Administration Leflunomide 20 mg 05/13/24 09:00 05/17/24 08:34 Leflunomide 20 Mg Tab PO 20 mg DAILY KELI Administration Levothyroxine Sodium 25 mcg 05/13/24 09:00 05/17/24 08:34 Levothyroxine 25 Mcg Tab PO 25 mcg DAILY KELI Administration Miscellaneous Information 1 each 05/12/24 14:34 Potassium Replacement Protocol 1 Each Misc MISCELLANE DAILY PRN Per Protocol Protocol Naloxone HCl 0.2 mg 05/12/24 12:51 Naloxone 0.4 Mg/Ml 1 Ml Vial IV Q2M PRN Opioid Reversal Ondansetron HCl 4 mg 05/12/24 12:51 05/16/24 13:59 Ondansetron 4 Mg/2 Ml Vial IVP 4 mg Q8HR PRN Administration Nausea And Vomiting Pantoprazole Sodium 40 mg 05/13/24 09:00 05/17/24 08:34 Pantoprazole 40 Mg Tablet PO 40 mg DAILY KELI Administration Prednisone 5 mg 05/13/24 09:00 05/17/24 08:34 Prednisone 5 Mg Tab PO 5 mg DAILY KELI Administration Pyridoxine HCl 100 mg 05/13/24 09:00 05/17/24 08:35 Pyridoxine 50 Mg Tab PO 100 mg DAILY KELI Administration Intake and Output 05/16/24 05/17/24 05/17/24 22:59 06:59 14:59 Other: Voiding Method Bedside Commode Bedside Commode Bedside Commode # Voids 1 1 05/17/24 05:28 05/17/24 05:28
[2024-05-17] MEDS: BACITRACIN ZINC 500 UNIT/GM OINT 28.4 GM TUBE TOPICAL SCH (16:52)
--- NOTE | 2024-05-17 17:50 | P.PN ---
Subjective Progress Note Date: 05/17/24 Shelbie Minaya, is a 68-year-old female who presented to [facility] emergency room with a chief complaint of severe intractable back pain with inability to stand or walk. Patient stated that she has chronic back pain, however 2 days ago her pain was much more severe, this morning she woke up she tried to get out of bed but was not able to stand or walk, family members called EMS and patient was brought into emergency room. She was evaluated in the emergency room vital examination on presentation revealed a temperature of 98 pulse 86 respiration 18 blood pressure 154/104 pulse ox 92% on room air Laboratory data revealed a white blood count of 6.7 hemoglobin 11.8 platelet count 219 sodium 142 potassium 3.3 chloride 104 CO2 31 BUN 13 creatinine 0.61 Testing in the emergency room revealed CT scan of the lumbar spine revealed no evidence for acute spinal fracture however patient had severe central canal stenosis at L4-L5 secondary to grade 2 anterolisthesis with disc bulge and li gamentum flavum buckling with similar L5-S1 disc protrusion with moderate central canal stenosis. Patient was given IV Dilaudid in the emergency room which caused her to have episodes of vomiting. She was started on IV steroids and was admitted to medical floor for further evaluation and treatment. Neurosurgery consultation was requested On 05/13/2024 patient was seen and examined on the medical floor she is alert and oriented x 3 in no apparent distress she is still complaining of severe low back pain, she is still unable to stand up or walk, otherwise she denies any complaints there is no fever or chills no headache or dizziness no chest pain no shortness of breath no cough no nausea or vomiting no abdominal pain no diarrhea and no urinary symptoms. At this time patient is not getting relief from her pain, however she is reluctant to take more medication due to multiple allergies with recent episodes of nausea and vomiting. Patient is willing to try epidural injections, consultation for anesthesia was initiated. On 05/14/2024 patient is alert and oriented x 3 patient still having significant back pain. Awaiting anesthesia input. Patient was evaluated by orthopedic services recommending conservative management at this time. Current vital signs temp 98.0, heart rate 88, respiratory rate 18, blood pressure 122/78 with a pulse ox of 98% on 2 L patient denies chest pain or shortness of breath. Patient denies nausea vomiting or diarrhea. Patient denies any urinary burning or frequency On 05/15/2024 patient was seen and examined on the medical floor she is alert and oriented x 3 in no apparent distress she is still complaining of severe low back pain, she is still unable to stand up or walk, otherwise she denies any complaints there is no fever or chills no headache or dizziness no chest pain no shortness of breath no cough no nausea or vomiting no abdominal pain no diarrhea and no urinary symptoms. Input from anesthesia reviewed at this time will discontinue aspirin and Lovenox will use SCD stockings for DVT prophylaxis. on 05/16/2024 patient is alert and oriented x 3. patient is still complaining about significant pain and difficulty with ambulation. pt/ot services consulted. patient denies chest pain or shortness of breath. denies nausea vomiting or diarrhea. denies any urinary burning or frequency On 05/17/2024 patient was seen and examined on the medical floor she is alert and oriented x 3 in no apparent distress she is still complaining of low back pain with extreme difficulty standing and walking, she is still having tachycardia today his heart rate is around 100, EKG yesterday with heart rate of 120, cause is unclear cardiology consultation was requested patient was evaluated by cardiology this morning and they recommended an echocardiogram. Objective - Vital Signs Vital signs: Vital Signs Temp 98.4 F 05/17/24 15:00 Pulse 106 H 05/17/24 15:00 Resp 16 05/17/24 15:00 BP 100/62 05/17/24 15:00 Pulse Ox 94 L 05/17/24 15:00 FiO2 Intake & Output 05/16/24 05/17/24 05/17/24 18:59 06:59 18:59 Intake Total 480 Output Total 950 Balance -950 480 Intake: Oral 480 Output: Urine 950 Other: Voiding Method Diaper Bedside Commode Bedside Commode External Catheter # Voids 4 1 3 # Bowel Movements 1 - Exam In general patient is alert and oriented x 3 in no distress HEENT head normocephalic and atraumatic Neck is supple no JVD no goiter no lymphadenopathy no carotid bruit Chest examination is clear to auscultation no crackles no wheezing Cardiac exam reveals regular heart sounds S1 and S2 no gallops no murmurs Abdomen is soft nontender no organomegaly with normal bowel sounds Extremity exam reveals no edema no cyanosis or clubbing Neurological examination reveals no gross focal deficits - Labs CBC & Chem 7: 05/17/24 05:28 05/17/24 05:28 Labs: Abnormal Lab Results - Last 24 Hours (Table) 05/17/24 05/17/24 Range/Units 05:28 05:28 MCH 26.7 L (27.0-32.0) pg MCHC 30.6 L (32.0-37.0) g/dL RDW 16.6 H (11.5-14.5) % BUN/Creatinine Ratio 25.57 H (12.00-20.00) Ratio Albumin 3.5 L (3.8-4.9) g/dL Albumin/Globulin Ratio 1.25 L (1.60-3.17) Ratio Assessment and Plan Plan: Severe intractable back pain Severe physical debility with inability to stand or walk Hypokalemia on presentation Underlying history of hypothyroidism Underlying history of hypertension Underlying history of rheumatoid arthritis Underlying history of degenerative disc disease Underlying history of COPD Underlying history of gastroesophageal reflux disease At this time patient was seen and examined She was started on pain management and IV steroids in the emergency room Consultation for neurosurgery was initiated Home medications reviewed and reordered For DVT prophylaxis subcu Avani Will follow closely
--- NOTE | 2024-05-18 10:16 | P.PN ---
Subjective HISTORY OF PRESENT ILLNESS: This is a 68-year-old female with a past medical history significant for hypothyroidism, COPD, rheumatoid arthritis, and degenerative disc disease. Patient used to follow in the office with Dr Womack but has not been seen since 2020. We have been asked to see the patient in consultation for sinus tachycardia. Patient examined at the bedside. Patient presented to the hospital due to severe back pain. Patient has been evaluated by orthopedics and also by anesthesia pain management. According to the patient's nurse, anesthesia is planning for epidural injection on Wednesday. Her aspirin has been discontinued. The patient denies any chest pain or pressure. She denies any shortness of breath. She denies any palpitations. She continues to report significant back pain this morning. DIAGNOSTICS: - EKG reveals sinus tachycardia with no signs of acute ischemia. Left axis deviation. - Chest xray cardiomegaly with similar diffuse interstitial opacities. Correlate for CHF exacerbation versus atypical infection versus interstitial lung disease.. - Laboratory data: WBC 6.61. Hemoglobin 13.0. Platelet count 262. Sodium 140. Potassium 3.9. BUN 17.9. Creatinine 0.7. proBNP 597. - Current home cardiac medications include Lasix 40 mg daily and aspirin 81 mg daily - Most recent echocardiogram obtained in 04/2020 revealing mild concentric LVH, EF 55 to 60%, mild MR, mild TR - Cardiac catheterization history: 04/2020 revealing no obstructive coronary artery disease 05/18/2024 Patient examined this morning at the bedside. Patient is sitting up in the chair. Patient denies chest pain or pressure. She denies shortness of breath. She continues to report back pain. Telemetry reveals sinus tachycardia. Blood pressure stable at 115/81. Echocardiogram completed revealing ejection fraction 35 to 40%, mildly reduced global LV systolic function, LVEF underestimated due to tachycardia, mild tricuspid regurgitation. PHYSICAL EXAM: VITAL SIGNS: Reviewed. GENERAL: Well-developed in no acute distress. HEENT: Head is normocephalic. Pupils are equal, round. Sclerae anicteric. Mucous membranes of the mouth are moist. Neck supple. No JVD or thyromegaly LUNGS: Respirations even and unlabored. Lungs essentially clear to auscultation bilaterally. HEART: Regular rate and rhythm. S1 and S2 heard. ABDOMEN: Soft. Nondistended. Nontender. EXTREMITIES: Normal range of motion. No clubbing or cyanosis. Peripheral pulses intact. No lower extremity edema NEUROLOGIC: Awake and alert. Oriented x 3. ASSESSMENT: Intractable back pain L4-L5 anterolisthesis, L4-S1 spondylosis; scheduled for epidural injection on Wednesday with anesthesia Sinus tachycardia, physiological, secondary to acute back pain Cardiomyopathy, 35 to 40%, ischemic versus nonischemic No obstructive coronary artery disease, per cath 04/2020 No evidence of congestive heart failure, BNP 597, euvolemic upon examination History of COPD History of hypothyroidism History of rheumatoid arthritis History of degenerative disc disease PLAN: Check TSH Aspirin remains on hold secondary to epidural injection planned for Wednesday per nursing Patient sinus tachycardia is physiological secondary to her intractable back pain Add metoprolol succinate 25 mg daily Add losartan 12.5 mg daily Recommend outpatient follow-up and repeating echo in 2 to 3 months to reevaluate LV function Further recommendations pending patient course Nurse practitioner note has been reviewed by physician. Signing provider agrees with the documented findings, assessment, and plan of care documented by [employer] as a scribe. Objective - Vital Signs Vital signs: Vital Signs Temp 98.6 F 05/18/24 07:00 Pulse 116 H 05/18/24 07:00 Resp 18 05/18/24 07:00 BP 115/81 05/18/24 07:00 Pulse Ox 92 L 05/18/24 07:00 FiO2 Intake & Output 05/17/24 05/18/24 05/18/24 18:59 06:59 18:59 Intake Total 720 Balance 720 Intake: Oral 720 Other: Voiding Method Bedside Commode Bedside Commode # Voids 1 1 # Bowel Movements 1 - Labs CBC & Chem 7: 05/17/24 05:28 05/17/24 05:28
--- NOTE | 2024-05-18 10:47 | CA ---
Transthoracic Echo Report Name: Shelbie Minaya Age: 68 Gender: F : 1955 Exam Date: 05/17/2024 14:22 Exam Location: [facility] Ht (in): 66 Wt (lb): 195 Ordering Physician: Edilma Santos Attending/Referring Phys: [id number], Tom Lead Nit[employer] Processor Cynthia Ji RDCS Procedure CPT: Indications: LV function, tachycardia, back pain, Other cardiomyopathies Cardiac Hx: Technical Quality: Technically difficult study Contrast 1: Definity Total Dose (mL): 2 Contrast 2: Total Dose (mL): MEASUREMENTS (Male / Female) Normal Values 2D ECHO LV Diastolic Diameter PLAX 3.6 cm 4.2 - 5.9 / 3.9 - 5.3 cm LV Systolic Diameter PLAX 3.1 cm IVS Diastolic Thickness 1.0 cm 0.6 - 1.0 / 0.6 - 0.9 cm LVPW Diastolic Thickness 1.3 cm 0.6 - 1.0 / 0.6 - 0.9 cm LV Relative Wall Thickness 0.6 LVOT Diameter 2.2 cm LV Diastolic Volume MOD BP 98.7 cm??? 67 - 155 / 56 - 104 cm??? LV Systolic Volume MOD BP 73.9 cm??? 22 - 58 / 19 - 49 cm??? LV Ejection Fraction MOD BP 25.1 % >= 55 % LV Cardiac Index MOD BP 1248.6 cm???/min???m??? LV Diastolic Volume MOD 4C 82.8 cm??? LV Systolic Volume MOD 4C 72.7 cm??? LV Ejection Fraction MOD 4C 12.2 % LV Cardiac Index MOD 4C 508.1 cm???/min???m??? LV Diastolic Length 4C 7.1 cm LV Systolic Length 4C 6.9 cm LV Diastolic Volume MOD 2C 110.1 cm??? LV Systolic Volume MOD 2C 74.9 cm??? LV Ejection Fraction MOD 2C 31.9 % LV Cardiac Index MOD 2C 1774.5 cm???/min???m??? LV Diastolic Length 2C 7.6 cm LV Systolic Length 2C 7.0 cm LA Volume 53.8 cm??? 18 - 58 / 22 - 52 cm??? LA Volume Index 26.1 cm???/m??? 16 - 28 cm???/m??? DOPPLER AV Peak Velocity 137.5 cm/s AV Peak Gradient 7.6 mmHg AV Mean Velocity 96.7 cm/s AV Mean Gradient 4.1 mmHg AV Velocity Time Integral 19.9 cm LVOT Peak Velocity 91.4 cm/s LVOT Peak Gradient 3.3 mmHg LVOT Velocity Time Integral 11.5 cm LVOT Stroke Volume 44.3 cm??? LVOT Stroke Volume Index 22.4 ml/m??? LVOT Cardiac Index 2238.4 cm???/min???m??? AV Area Cont Eq vti 2.2 cm??? AV Area Cont Eq pk 2.6 cm??? MV Area PHT 11.5 cm??? Mitral E Point Velocity 45.8 cm/s Mitral A Point Velocity 122.8 cm/s Mitral E to A Ratio 0.4 MV Deceleration Time 66.0 ms TR Peak Velocity 258.5 cm/s TR Peak Gradient 26.7 mmHg Right Atrial Pressure 5.0 mmHg Pulmonary Artery Systolic Pressu 31.7 mmHg Right Ventricular Systolic Press 31.7 mmHg PV Peak Velocity 73.2 cm/s PV Peak Gradient 2.1 mmHg FINDINGS Left Ventricle Left ventricular ejection fraction is estimated at 35-40 %. Moderately increased posterior wall thickness. Mildly reduced global LV systolic dysfunction. LVEF assessment is underestimated because of tachycardia. Right Ventricle Right ventricle not well visualized. Right ventricular systolic pressure within normal limits. Right Atrium Normal right atrial size. Left Atrium Mildly increased left atrial volume. Mitral Valve Mitral valve thickened. Mitral annular calcification. No evidence for mitral valve prolapse. No mitral stenosis. No mitral regurgitation. Aortic Valve Trileaflet aortic valve. Aortic valve sclerosis. No aortic valve stenosis or regurgitation. Tricuspid Valve Structurally normal tricuspid valve. No tricuspid stenosis. Mild tricuspid regurgitation. Pulmonic Valve Pulmonic valve not well visualized. No pulmonic stenosis. Trace pulmonic regurgitation. Pericardium No pericardial effusion. Echo free space anterior to the right ventricle likely represents a fat pad. Aorta Mildly dilated aortic annulus. Mildly dilated proximal ascending aorta (tube). CONCLUSIONS Technically difficult study. LVEF 35 to 40% Mild reduced global LV systolic dysfunction LVEF assessment is underestimated because of tachycardia. Mild tricuspid regurgitation. Previewed by: Dr Brody Barboza (Electronically Signed) Final Date: 18 May 2024 10:46
[2024-05-18] MEDS: METOPROLOL SUCCINATE (ER) 25 MG TAB.ER.24H PO SCH (12:56)
[2024-05-18] MEDS: LOSARTAN 25 MG TAB PO SCH (12:56)
--- NOTE | 2024-05-18 13:05 | P.DS ---
Providers Date of admission: 05/12/24 12:55 Expected date of discharge: 05/18/24 Attending physician: Beny Glover Consults: 05/12/24 12:51 Consult Physician Urgent Consulting Provider: Anil Peña Consult Reason/Comments: intractable back pain Do you want consulting provider notified?: Yes 05/13/24 10:41 Consult Physician Routine Consulting Provider: Galileo Pires Consult Reason/Comments: Intractable back pain Do you want consulting provider notified?: Yes 05/16/24 15:42 Consult Physician Routine Consulting Provider: Brody Barboza Consult Reason/Comments: tachycardia Do you want consulting provider notified?: Yes Primary care physician: Benykey Glover [facility] Course: Discharge diagnosis Severe intractable back pain Severe physical debility with inability to stand or walk Hypokalemia on presentation Underlying history of hypothyroidism Underlying history of hypertension Underlying history of rheumatoid arthritis Underlying history of degenerative disc disease Underlying history of COPD Underlying history of gastroesophageal reflux disease Hospital course Shelbie Minaya, is a 68-year-old female who presented to [facility] emergency room with a chief complaint of severe intractable back pain with inability to stand or walk. Patient stated that she has chronic back pain, trujillo vito 2 days ago her pain was much more severe, this morning she woke up she tried to get out of bed but was not able to stand or walk, family members called EMS and patient was brought into emergency room. She was evaluated in the emergency room vital examination on presentation revealed a temperature of 98 pulse 86 respiration 18 blood pressure 154/104 pulse ox 92% on room air Laboratory data revealed a white blood count of 6.7 hemoglobin 11.8 platelet count 219 sodium 142 potassium 3.3 chloride 104 CO2 31 BUN 13 creatinine 0.61 Testing in the emergency room revealed CT scan of the lumbar spine revealed no evidence for acute spinal fracture however patient had severe central canal stenosis at L4-L5 secondary to grade 2 anterolisthesis with disc bulge and ligamentum flavum buckling with similar L5-S1 disc protrusion with moderate central canal stenosis. Patient was given IV Dilaudid in the emergency room which caused her to have episodes of vomiting. She was started on IV steroids and was admitted to medical floor for further evaluation and treatment. Neurosurgery consultation was requested On 05/13/2024 patient was seen and examined on the medical floor she is alert and oriented x 3 in no apparent distress she is still complaining of severe low back pain, she is still unable to stand up or walk, otherwise she denies any complaints there is no fever or chills no headache or dizziness no chest pain no shortness of breath no cough no nausea or vomiting no abdominal pain no diarrhea and no urinary symptoms. At this time patient is not getting relief from her pain, however she is reluctant to take more medication due to multiple allergies with recent episodes of nausea and vomiting. Patient is willing to try epidural injections, consultation for anesthesia was initiated. On 05/14/2024 patient is alert and oriented x 3 patient still having significant back pain. Awaiting anesthesia input. Patient was evaluated by orthopedic services recommending conservative management at this time. Current vital signs temp 98.0, heart rate 88, respiratory rate 18, blood pressure 122/78 with a pulse ox of 98% on 2 L patient denies chest pain or shortness of breath. Patient denies nausea vomiting or diarrhea. Patient denies any urinary burning or frequency On 05/15/2024 patient was seen and examined on the medical floor she is alert and oriented x 3 in no apparent distress she is still complaining of severe low back pain, she is still unable to stand up or walk, otherwise she denies any complaints there is no fever or chills no headache or dizziness no chest pain no shortness of breath no cough no nausea or vomiting no abdominal pain no diarrhea and no urinary symptoms. Input from anesthesia reviewed at this time will discontinue aspirin and Lovenox will use SCD stockings for DVT prophylaxis. on 05/16/2024 patient is alert and oriented x 3. patient is still complaining about significant pain and difficulty with ambulation. pt/ot services consulted. patient denies chest pain or shortness of breath. denies nausea vomiting or diarrhea. denies any urinary burning or frequency On 05/17/2024 patient was seen and examined on the medical floor she is alert and oriented x 3 in no apparent distress she is still complaining of low back pain with extreme difficulty standing and walking, she is still having tachycardia today his heart rate is around 100, EKG yesterday with heart rate of 120, cause is unclear cardiology consultation was requested patient was evaluated by cardiology this morning and they recommended an echocardiogram. On 05/18/2024 patient is alert and oriented x 3. Patient has plans to return for epidural tomorrow. Echocardiogram completed showing an EF of 35 to 40% mild reduced global LV systolic function mild tricuspid regurgitation, commend follow-up echocardiogram in 2 to 3 months. At this time patient denies chest pain or shortness of breath. Patient denies nausea vomiting or diarrhea. Patient denies any urinary burning or frequency Patient Condition at Discharge: Stable Plan - Discharge Summary Discharge Rx Participant: No New Discharge Prescriptions: New Bacitracin Zinc Oint 1 applic TOPICAL TID each Losartan [Cozaar] 12.5 mg PO DAILY 30 Days #30 tab Metoprolol Succinate (ER) [Toprol XL] 25 mg PO DAILY 30 Days #30 tab Continue Cholecalciferol [Vitamin D3 (25 Mcg = 1000 Iu)] 25 mcg PO DAILY Latanoprost [Xalatan 0.005%] 1 drop LEFT EYE HS Cyanocobalamin (Vitamin B-12) [Vitamin B-12] 1,000 mcg PO DAILY Levothyroxine Sodium [Euthyrox] 25 mcg PO DAILY Furosemide [Lasix] 40 mg PO DAILY predniSONE 5 mg PO DAILY Omeprazole [PriLOSEC] 40 mg PO DAILY Turmeric Root Extract [Turmeric] 500 mg PO DAILY Leflunomide 20 mg PO DAILY Pyridoxine HCl (Vitamin B6) [Vitamin B-6] 100 mg PO DAILY Krill/Om-3/Dha/Epa/Phospho/Ast [Krill Oil 600 mg Softgel] 1 cap PO DAILY Discontinued Aspirin EC [Ecotrin Low Dose] 81 mg PO DAILY Discharge Medication List Cholecalciferol [Vitamin D3 (25 Mcg = 1000 Iu)] 25 mcg PO DAILY 04/30/20 [History] Cyanocobalamin (Vitamin B-12) [Vitamin B-12] 1,000 mcg PO DAILY 04/30/20 [History] Furosemide [Lasix] 40 mg PO DAILY 04/30/20 [History] Latanoprost [Xalatan 0.005%] 1 drop LEFT EYE HS 04/30/20 [History] Levothyroxine Sodium [Euthyrox] 25 mcg PO DAILY 04/30/20 [History] Leflunomide 20 mg PO DAILY 06/16/22 [History] predniSONE 5 mg PO DAILY 06/16/22 [History] Krill/Om-3/Dha/Epa/Phospho/Ast [Krill Oil 600 mg Softgel] 1 cap PO DAILY 05/12/24 [History] Omeprazole [PriLOSEC] 40 mg PO DAILY 05/12/24 [History] Pyridoxine HCl (Vitamin B6) [Vitamin B-6] 100 mg PO DAILY 05/12/24 [History] Turmeric Root Extract [Turmeric] 500 mg PO DAILY 05/12/24 [History] Bacitracin Zinc Oint 1 applic TOPICAL TID each 05/18/24 [Rx] Losartan [Cozaar] 12.5 mg PO DAILY 30 Days #30 tab 05/18/24 [Rx] Metoprolol Succinate (ER) [Toprol XL] 25 mg PO DAILY 30 Days #30 tab 05/18/24 [Rx] Follow up Appointment(s)/Referral(s): Beny Glover MD [Primary Care Provider] - 1-2 days Activity/Diet/Wound Care/Special Instructions: Please hold aspirin until after epidural procedure on Wednesday Discharge Disposition: TRANSFER TO SNF/ECF
[2024-05-18 13:55] VITALS: BMI 31.4
[2024-05-19 08:03] VITALS: BP 110/76; PULSE 85; RESP 14; TEMP 97.3
[2024-05-19] MEDS ORDERED: IOPAMIDOL M200 10 ML VIAL ONE (08:47)
[2024-05-19] MEDS ORDERED: methylPREDNISolone ACETATE 80 MG/ML 1 ML VIAL ONE (08:47)
--- NOTE | 2024-05-19 08:56 | P.PCN ---
Date of Procedure: 05/19/24 Procedure(s) Performed: PREOPERATIVE DIAGNOSIS: 1- Lumbar Degenerative Disc Diseases 2-Lumbar spondylosis with Facet arthropathy without myelopathy. 3-lumbar spinal stenosis 4-lumbar radiculopathy POSTOPERATIVE DIAGNOSIS: 1-lumbar degenerative disc disease. 2-lumbar spondylosis with facet arthropathy without myelopathy. 3-lumbar spinal stenosis. 4-lumbar radiculopathy PROCEDURE 1. Lumbar epidural steroid injection under fluoroscopic guidance at the L5-S1 level. (Fluoroscopy imaging was available in radiology department) 2. Lumbar epidurogram. ANESTHESIA: Lidocaine 1% 3 and then only. EBL: Minimal PROCEDURE INDICATION: The patient with low back pain and radiculitis symptoms unresponsive to conservative treatment. Fluoroscopy was used to optimize visualization of the needle placement and to maximize safety. PROCEDURE DESCRIPTION / TECHNIQUE: The patient was seen and identified in the preoperative area. Risks, benefits, complications including but not limited to infections ,bleeding ,allergic reaction to the medications ,nerve damage and not complete pain releife , and alternatives were discussed with the patient. The patient agreed to proceed with the procedure and signed the consent, and vital signs were stable. Patient was taken to the OR and time out was completed. The patient was placed in the prone position on procedure table and a pillow was placed under the abdomen to reduce lumbar lordosis. The lumbosacral area was prepped and draped in the usual sterile fashion.ere closely monitored during the procedure. Vital signs was monitered during the entire procedure. Using anterior-posterior fluoroscopy, the L5-S1 interlaminar space was identified and the skin over this site was marked and then infiltrated with 1% lidocaine subcutaneously. Subsequently, a 20-gauge Tuohy epidural needle was inserted and advanced toward the epidural space using the ``Loss of resistance technique and guided by AP and lateral fluoroscopy. The correct needle position in the epidural space was verified with the injection of 2 mL of the water soluble contrast dye Isovue 200 contrast and observing an excellent epidurogram with the epidural spread of the dye, after negative aspiration for blood and CSF and in the absence of paresthesias. Again after negative aspiration, a 6 ml mixture containing 60 mg of Depo-medrol ( Preservetive Free ), and 2 ml of preservative free Normal Saline, and 2 ml of preservative free lidocaine 1% solution was injected and a washout of epidurogram was seen. Needle was withdrawn intact, skin was cleansed, and bandages were applied. COMPLICATIONS: None DISPOSITION / PLANS: The patient was placed in a supine position and transferred to the recovery area in a stable condition for observation. There was no evidence of lower extremity motor or sensory deficit after the procedure. Patient was discharged from the recovery room after meeting discharge criteria. Home discharge instructions were given to the patient by the staff. The patient was reexamined prior to discharge. The patient will schedule a follow up in the clinic in 2-4 weeks.
--- NOTE | 2024-05-19 09:13 | FL ---
Fluoroscopy INDICATION: Pain FINDINGS: Fluoroscopy time: 4.4 seconds. Total dose area product (DAP) in uGy*m?, mGy*cm? (or similar): 0.60423 Images obtained: 2. Images document needle directed towards the lumbar spine IMPRESSION: 1. Documentation of fluoroscopy. [facility], , 05/19/2024 9:11 AM
[2024-05-19] MEDS: DAPAGLIFLOZIN PROPANEDIOL 10 MG TABLET PO SCH (09:48)
--- NOTE | 2024-05-19 11:38 | P.PN ---
Progress Note - Text Patient off the floor during cardiology rounds for epidural injection with anesthesia Patient may be discharged today from a cardiac standpoint. She is to continue on her current cardiac medications including Lasix, losartan, and metoprolol. Add Farxiga 10 mg daily Patient to follow-up in the office with Dr. Barboza. Recommend repeat echocardiogram in 2 to 3 months to reassess LV function
== END 2024-05-19 13:18 | DRG 552 ==
LOC: EC 07:22 → 6NMEDSUR 12:54 → OBSVTOIN 12:55 → 6NMEDSUR 14:44
PROVIDERS: ADMIT Internal Medicine; ATTEND Internal Medicine
PROC: B01B1ZZ Fluoroscopy of Spinal Cord using Low Osmolar Contrast (ICD-10-PCS; 2024-05-19)
PROC: 3E0R33Z Introduction of Anti-inflammatory into Spinal Canal, Percutaneous Approach (ICD-10-PCS; principal; 2024-05-19 08:30)
DX: M51.17 Intervertebral disc disorders with radiculopathy, lumbosacral region (principal); I42.8 Other cardiomyopathies; M06.9 Rheumatoid arthritis, unspecified; J44.9 Chronic obstructive pulmonary disease, unspecified; E03.9 Hypothyroidism, unspecified; I10 Essential (primary) hypertension; I08.1 Rheumatic disorders of both mitral and tricuspid valves; M43.16 Spondylolisthesis, lumbar region; I25.5 Ischemic cardiomyopathy; R00.0 Tachycardia, unspecified; M47.27 Other spondylosis with radiculopathy, lumbosacral region; M48.061 Spinal stenosis, lumbar region without neurogenic claudication; F41.9 Anxiety disorder, unspecified; G89.29 Other chronic pain; Z79.82 Long term (current) use of aspirin; M79.7 Fibromyalgia; K59.00 Constipation, unspecified; E87.6 Hypokalemia; R53.81 Other malaise; Z79.890 Hormone replacement therapy; Z79.899 Other long term (current) drug therapy; Z86.73 Personal history of transient ischemic attack (TIA), and cerebral infarction without residual deficits; Z87.891 Personal history of nicotine dependence; Z90.01 Acquired absence of eye; Z90.710 Acquired absence of both cervix and uterus; Z96.651 Presence of right artificial knee joint; Z88.0 Allergy status to penicillin; Z88.5 Allergy status to narcotic agent
CPT/HCPCS: 36415; 62323; 71045; 72131; 80053; 81001; 81003; 83880; 84443; 85025; 87636; 93306; 94760; 96374; 96375; 96376; 99285

== ENCOUNTER 2024-06-08 07:45 | Emergency (ER) | payer MEDICARE ==
--- NOTE | 2024-06-08 08:02 | ED ---
General Adult HPI - General Chief complaint: Extremity Problem,Nontraumatic Stated complaint: R hip pain Time Seen by Provider: 06/08/24 07:50 Source: patient, EMS, RN notes reviewed Mode of arrival: EMS Limitations: no limitations - History of Present Illness Initial comments: Patient is a 68-year-old female present to the emergency department with sangeetha taveras with right hip pain. Patient does have history of right sciatic pain. Patient was in the ER last week with similar symptoms. Patient states discomfort is actually more the right hip. Discomfort does increase with movement. No weakness. Patient does have some tingling. - Related Data Home Medications Medication Instructions Recorded Confirmed Cholecalciferol [Vitamin D3 (25 25 mcg PO DAILY 04/30/20 05/12/24 Mcg = 1000 Iu)] Cyanocobalamin (Vitamin B-12) 1,000 mcg PO DAILY 04/30/20 05/12/24 [Vitamin B-12] Furosemide [Lasix] 40 mg PO DAILY 04/30/20 05/12/24 Latanoprost [Xalatan 0.005%] 1 drop LEFT EYE HS 04/30/20 05/12/24 Levothyroxine Sodium [Euthyrox] 25 mcg PO DAILY 04/30/20 05/12/24 Leflunomide 20 mg PO DAILY 06/16/22 05/12/24 predniSONE 5 mg PO DAILY 06/16/22 05/12/24 Krill/Om-3/Dha/Epa/Phospho/Ast 1 cap PO DAILY 05/12/24 05/12/24 [Krill Oil 600 mg Softgel] Omeprazole [PriLOSEC] 40 mg PO DAILY 05/12/24 05/12/24 Pyridoxine HCl (Vitamin B6) 100 mg PO DAILY 05/12/24 05/12/24 [Vitamin B-6] Turmeric Root Extract [Turmeric] 500 mg PO DAILY 05/12/24 05/12/24 Previous Rx's Medication Instructions Recorded Bacitracin Zinc Oint 1 applic TOPICAL TID each 05/18/24 HYDROcodone/APAP 5-325MG [[place] 1 each PO Q4HR PRN #18 tab 05/18/24 5-325] Losartan [Cozaar] 12.5 mg PO DAILY 30 Days #30 tab 05/18/24 Metoprolol Succinate (ER) [Toprol 25 mg PO DAILY 30 Days #30 tab 05/18/24 XL] Dapagliflozin Propanediol [Farxiga] 10 mg PO DAILY #30 tab 05/19/24 predniSONE [Deltasone] 2 tab PO DAILY #8 tab 06/08/24 Allergies Allergy/AdvReac Type Severity Reaction Status Date / Time Penicillins Allergy Yeast Verified 05/19/24 08:03 infections hydromorphone [From Dilaudid] AdvReac Nausea & Verified 05/19/24 08:03 Vomiting morphine AdvReac Nausea & Verified 05/19/24 08:03 Vomiting nickel AdvReac Swelling Verified 05/19/24 08:03 Review of Systems ROS Statement: Those systems with pertinent positive or pertinent negative responses have been documented in the HPI. ROS Other: All systems not noted in ROS Statement are negative. 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 History of Any Multi-Drug Resistant Organisms: None Reported Past Surgical History: Hysterectomy, Joint Replacement Additional Past Surgical History / Comment(s): right eye removed , tumor removed from neck , rt knee replaced. cadaver bone to left leg Past Psychological History: Anxiety Smoking Status: Former smoker Past Alcohol Use History: None Reported Past Drug Use History: Marijuana - Past Family History Mother Additional Family Medical History / Comment(s): from pancreatic cancer General Exam Limitations: no limitations General appearance: alert, in no apparent distress Head exam: Present: normocephalic Eye exam: Present: normal appearance Neck exam: Present: normal inspection Respiratory exam: Present: normal lung sounds bilaterally Cardiovascular Exam: Present: regular rate, normal rhythm Expanded Peripheral pulses: 2+: Posterior Tibialis (R), Posterior Tibialis (L) GI/Abdominal exam: Present: soft. Absent: tenderness, pulsatile mass Extremities exam: Present: tenderness (Right lateral hip. Right sciatic region. Distally the extremity is neurovascular intact.) Back exam: Present: normal inspection Neurological exam: Present: alert Psychiatric exam: Present: normal affect, normal mood Skin exam: Present: normal color Course Vital Signs 06/08/24 06/08/24 06/08/24 07:47 08:09 10:39 Temperature 98.2 F Pulse Rate 96 89 92 Respiratory 20 18 18 Rate Blood Pressure 171/100 142/96 133/96 O2 Sat by Pulse 90 L 95 95 Oximetry EKG Findings - EKG Results: EKG: interpreted by ERMD (Left axis. Poor R wave progression. Inferior Q waves. Occasional premature supraventricular beat.), sinus rhythm, normal ST/T Medical Decision Making - Medical Decision Making Was pt. sent in by a medical professional or institution (Dr. PA, SOCIAL SCIENCE TEACHER, urgent care, hospital, or assisted...) When possible be specific @ -No Did you speak to anyone other than the patient for history (EMS, parent, family, police, friend...)? What history was obtained from this source @ -No Did you review nursing and triage notes (agree or disagree)? Why? @ -I reviewed and agree with nursing and triage notes Were old charts reviewed (outside hosp., previous admission, EMS record, old EKG, old radiological studies, urgent care reports/EKG's, assisted records)? Report findings @ -No old charts were reviewed Differential Diagnosis (chest pain, altered mental status, abdominal pain women, abdominal pain men, vaginal bleeding, weakness, fever, dyspnea, syncope, headache, dizziness, GI bleed, back pain, seizure, CVA, palpatations, mental health, musculoskeletal)? @ -Differential Musculoskeletal Muscular strain, contusion, ligament sprain, fracture, arthritis, septic arthritis, bursitis, cellulitis, muscle spasm, nerve compression, DVT, arterial occlusion, herpes zoster, electrolyte abnormality, tumor.... This is not meant to be in all inclusive list differential Musculoskeletal Muscular strain, contusion, ligament sprain, fracture, arthritis, septic arthritis, bursitis, cellulitis, muscle spasm, nerve compression, DVT, arterial occlusion, herpes zoster, electrolyte abnormality, tumor.... This is not meant to be in all inclusive list EKG interpreted by me (3pts min.). @ -As above X-rays interpreted by me (1pt min.). @ -X-ray right hip shows questionable lucency in the greater trochanter CT interpreted by me (1pt min.). @ -CT scan right hip does not reveal evidence of fracture U/S interpreted by me (1pt. min.). @ -None done What testing was considered but not performed or refused? (CT, X-rays, U/S, labs)? Why? @ -None What meds were considered but not given or refused? Why? @ -None Did you discuss the management of the patient with other professionals (professionals i.e. , PA, SOCIAL SCIENCE TEACHER, lab, RT, psych nurse, elementary school social worker, webbing weaver, teacher, inshore undersea warfare officer, manager of case)? Give summary @ -No Was smoking cessation discussed for >3mins.? @ -No Was critical care preformed (if so, how long)? @ -No Were there social determinants of health that impacted care today? How? (Homelessness, low income, unemployed, alcoholism, drug addiction, transportation, low edu. Level, literacy, decrease access to med. care, senior living, rehab)? @ -No Was there de-escalation of care discussed even if they declined (Discuss DNR or withdrawal of care, Hospice)? DNR status @ -No What co-morbidities impacted this encounter? (DM, HTN, Smoking, COPD, CAD, Cancer, CVA, ARF, Chemo, Hep., AIDS, mental health diagnosis, sleep apnea, morbid obesity)? @ -None Was patient admitted / discharged? Hospital course, mention meds given and route, prescriptions, significant lab abnormalities, going to OR and other pertinent info. @ -Patient reevaluated and updated. Patient would like to try 0.5 of Dilaudid along with nausea medication. Patient did get some improvement with Toradol. Patient updated on results and need for follow-up. Patient is on chronic 10 mg prednisone for rheumatoid. Patient will have increased to 40 mg for 4 days and then resume 10 mg. Patient demonstrates understanding. Patient updated on need for follow-up. Undiagnosed new problem with uncertain prognosis? @ -No Drug Therapy requiring intensive monitoring for toxicity (Heparin, Nitro, Insulin, Cardizem)? @ -No Were any procedures done? @ -No Diagnosis/symptom? @ -Right hip pain Acute, or Chronic, or Acute on Chronic? @ -Acute Uncomplicated (without systemic symptoms) or Complicated (systemic symptoms)? @ -Default Side effects of treatment? @ -No Exacerbation, Progression, or Severe Exacerbation? @ -No Poses a threat to life or bodily function? How? (Chest pain, [place], [place], pneumonia, PE, COPD, DKA, ARF, appy, cholecystitis, CVA, Diverticulitis, Homicidal, Suicidal, threat to staff... and all critical care pts) @ -No Disposition Clinical Impression: Right hip pain Disposition: HOME SELF-CARE Condition: Stable Instructions (If sedation given, give patient instructions): Hip Pain (ED), Sciatica (ED) Additional Instructions: Prescription sent to pharmacy. Please use 40 mg steroid for 4 days then resume your 10 mg steroids. Please follow-up with primary care physician in the next day or 2 for recheck. Consider orthopedic follow-up. Consider physical therapy. Return for increased pain, weakness, worsening or changing symptoms or other concerns. Prescriptions: predniSONE [Deltasone] 2 tab PO DAILY #8 tab Is patient prescribed a controlled substance at d/c from ED?: No Referrals: Beny Glover MD [Primary Care Provider] - 1-2 days Time of Disposition: 11:16
[2024-06-08 08:10] VITALS: RESP 18
[2024-06-08] MEDS: KETOROLAC 15 MG/ML 1 ML VIAL IM STA ×2 (08:17→09:50)
--- NOTE | 2024-06-08 08:45 | XR ---
EXAMINATION TYPE: XR Hip RT and AP Pelvis DATE OF EXAM: 06/08/2024 8:39 AM COMPARISON: None. CLINICAL INDICATION: Female, 68 years old with history of pain, pain TECHNIQUE: XR Hip RT and AP Pelvis views were obtained. AP Pelvis also obtained. FINDINGS: Identified on only a single view is a vertically oriented lucency. While this could reflect superimposed lucency, nondisplaced fracture is difficult to exclude. Consider CT for further evaluat ion if felt to be indicated. The joint space appears within normal limits. The overlying soft tissu e appears unremarkable. IMPRESSION: Identified on only a single view is a vertically oriented lucency. While this could reflect superimpo sed lucency, nondisplaced fracture is difficult to exclude. Consider CT for further evaluation if fel t to be indicated. [facility], , 06/08/2024 8:43 AM
--- NOTE | 2024-06-08 10:36 | CT ---
EXAMINATION TYPE: CT hip RT wo con DATE OF EXAM: 06/08/2024 COMPARISON: None CLINICAL INDICATION: Female, 68 years old with history of pain; PHH, sciatica pain, right hip CT DLP: 926 mGycm Automated exposure control for dose reduction was used. Unenhanced CT of the right hip was performed. Bone and soft tissue window settings are submitted. FINDINGS: There is no evidence for displaced fracture or dislocation within the image field. Right hip is well seated without dislocation. No evidence for soft tissue mass or abnormal fluid collection. No pelvic masses are seen. IMPRESSION: NEGATIVE [facility], , 06/08/2024 10:34 AM
[2024-06-08 10:42] VITALS: BP 133/96; PULSE 92
[2024-06-08] MEDS: HYDROmorphone 0.5 MG/0.5 ML SYRINGE IM STA (11:24)
[2024-06-08] MEDS: ONDANSETRON ODT 4 MG TAB PO STA (11:24)
[2024-06-08 11:27] VITALS: TEMP 98.7
== END 2024-06-08 11:32 | disposition home or self-care (01) ==
LOC: EC 07:45
DX: M25.551 Pain in right hip (principal); Z88.0 Allergy status to penicillin; Z88.5 Allergy status to narcotic agent; Z91.048 Other nonmedicinal substance allergy status; Z87.891 Personal history of nicotine dependence; Z86.73 Personal history of transient ischemic attack (TIA), and cerebral infarction without residual deficits
CPT/HCPCS: 99285; 96372 ×3; 93005; 73502; 73700; J1885; J1171

== ENCOUNTER → 2024-06-29 | Outpatient (CLI) | payer MEDICARE ==
--- NOTE | 2024-06-30 09:29 | MR ---
EXAMINATION TYPE: MR lumbar spine wo con DATE OF EXAM: 06/29/2024 5:34 PM COMPARISON: 03/19/2022. CLINICAL INDICATION: Female, 68 years old with history of M43.16 SPONDYLOLISTHESIS; PHH, Low back krish n into rt lower extremity TECHNIQUE: Multi planar, multi sequence imaging was performed utilizing: T1-weighted, T2-weighted, a nd turbo inversion recovery imaging of the lumbar spine. IV Contrast: mL (None, if empty) FINDINGS: Alignment: The lumbar vertebral bodies have preserved heights with grade 1 anterolisthesis of L4 on L 5. Cord: The conus medullaris and the distal spinal cord appear unremarkable with regards to their signa l intensity and morphology. Bones/Discs: Moderate degeneration changes throughout the spine with osteophyte formation and facet j oint arthropathy. Multilevel disc desiccation is present. No abnormal inversion recovery signal to mullen ggest bony edema. T12-L1: No evidence of significant spinal canal stenosis or neural foraminal stenosis. L1-L2: No evidence of significant spinal canal stenosis or neural foraminal stenosis. L2-L3: No evidence of significant spinal canal stenosis or neural foraminal stenosis. L3-L4: No evidence of significant spinal canal stenosis or neural foraminal stenosis. L4-L5: Disc uncovering from grade 1 anterolisthesis and facet joint arthropathy with severe spinal ca nal stenosis and mild bilateral neural foraminal stenosis. There is right central disc extrusion pre sent measuring up to 11 mm in superior migration. Finding is new from prior on 03/19/2022. L5-S1: Left central/central protrusion with likely extrusion with 7 mm inferior migration. This mildl y narrows the ventral subarachnoid space with abutment of multiple nerve roots particularly on the le ft. Neural foraminal stenosis bilaterally due to osteophyte formation. Likely extrusion with inferior migration up to 7 mm. This abuts multiple nerve roots on the left No significant spinal canal or neural foraminal stenosis in the remainder of the visualized levels. Other findings: Right renal cyst measuring up to 3.9 cm. IMPRESSION: 1. Grade 1 anterolisthesis of L4 and L5 with severe spinal canal stenosis not significantly changed from 03/10/2022. 2. L4-L5 new disc extrusion with superior migration up to 11 mm at the right central location which closely approximates multiple nerve roots.. 3. L5-S1 disc extrusion/extrusion with inferior migration similar to prior abutting multiple nerve r oots. 4. Moderate disc degeneration with associated osteoarthritic changes. [facility], , 06/30/2024 9:26 AM
== END | disposition home or self-care (01) ==
LOC: RADMRIMAIN 15:34
PROVIDERS: ATTEND Orthopaedic Surgery Orthopaedic Surgery of the Spine
DX: M51.360 Other intervertebral disc degeneration, lumbar region with discogenic back pain only (principal); M51.26 Other intervertebral disc displacement, lumbar region; M43.16 Spondylolisthesis, lumbar region
CPT/HCPCS: 72148

== ENCOUNTER → 2024-08-08 | Outpatient (CLI) | payer MEDICARE ==
[2024-08-08 13:45] LABS: African American GFR (CKD) >90 (>60 ml/min/1.73 sqM); Blood Urea Nitrogen 14 mg/dL (7-17); Non-African American GFR(CKD) >90 (>60 ml/min/1.73 sqM)
--- NOTE | 2024-08-08 18:05 | CT ---
EXAMINATION TYPE: CT angio chest CT DLP: 880.3 mGycm, Automated exposure control for dose reduction was used. DATE OF EXAM: 08/08/2024 2:46 PM COMPARISON: CTA chest 08/06/2023, 07/21/2022, 07/24/2021, 07/25/2020 CLINICAL INDICATION:Female, 69 years old with history of I71.20 THORACIC AORTIC ANEURYSM, WITHOUT RUP TURE,; Thoracic aortic aneurysm TECHNIQUE/CONTRAST: CTA scan of the thorax is performed without and with IV Contrast, patient injected with 100 ml mL of Isovue 370. 3D reconstructed images are created on an independent workstation and reviewed.. FINDINGS: Lungs/Pleura: No evidence of focal consolidation, pleural effusion or pneumothorax. Scattered interst itial reticular groundglass opacities throughout the lungs redemonstrated. Regions of bronchiectasis redemonstrated. No honeycombing. Stable posterior right upper lobe calcified granuloma. Stable forest ranger technician ior left upper lobe calcified granuloma. No new or enlarging pulmonary nodules. Airway: Large airways are patent. Heart: Cardiomegaly is demonstrated.No pericardial effusion. Dense mitral annulus calcifications. Mod erate coronary artery calcifications present. Vasculature: Mild atherosclerotic calcification of the aorta and its branches. Conventional three-ves rogelio aortic arch. Aneurysmal dilatation of the aortic root measured 4.1 cm which is stable. Marginal i ncrease in size of aneurysmal dilatation of the ascending thoracic aorta measuring up to 4.4 cm, prev iously 4.2 cm. The descending thoracic aorta measures up to 3.0 cm. No evidence for intramural hemato ma or dissection. Dilated main pulmonary artery measuring up to 4.0 cm in transverse dimension sugges ting pulmonary arterial hypertension. No evidence for pulmonary embolism. Mediastinum: No evidence of adenopathy. Musculoskeletal: No acute osseous abnormalities. Mild multilevel degenerative disc disease of the tho racic spine. Soft Tissues: Unremarkable. Lower neck: No significant findings. Upper Abdomen: Moderate size hiatal hernia. Right renal simple appearing 4.1 cm cyst. No follow-up re commended. IMPRESSION: 1. Marginal increase in size of ascending thoracic aortic aneurysm measuring up to 4.4 cm. Stable ane urysmal dilatation of the aortic root measuring up to 4.0 cm. No evidence for intramural hematoma or dissection. 2. Similar interstitial lung disease. 3. Findings suggesting pulmonary arterial hypertension again. 4. Moderate size hiatal hernia redemonstrated. [facility], , 08/08/2024 6:03 PM
== END | disposition home or self-care (01) ==
LOC: RADCTMAIN 12:51
PROVIDERS: ATTEND Thoracic Surgery (Cardiothoracic Vascular Surgery)
DX: I71.20 Thoracic aortic aneurysm, without rupture, unspecified (principal); I71.21 Aneurysm of the ascending aorta, without rupture; J84.9 Interstitial pulmonary disease, unspecified; K44.9 Diaphragmatic hernia without obstruction or gangrene
CPT/HCPCS: 82565; 84520; 71275; 36415; Q9967